=== PATIENT | female | born 1945 | race Caucasian/White ===

== ENCOUNTER 2018-03-02 00:56 | Observation (INO) | payer MEDICAID, OTHER ==
[2018-03-02] MEDS ORDERED: ONDANSETRON 4 MG/2 ML VIAL IVP ONE (01:09)
--- NOTE | 2018-03-02 01:10 | EDPHY ---
General Time Seen by Provider: 03/02/18 01:07 Narrative: 0220: I did go see and evaluate the patient. She is resting comfortably. She has no complaints at this time. She has a left lower abdominal wall hematoma. Additionally her CT scans have been reviewed of her head and abdomen and pelvis. CT scan of the head shows a hyperdense lesion in 1 focal area. Patient does report to me that she may have had a focal hyperdense lesion or bleed on her brain before. She states this comment on this before. She did hit her head when she had a mechanical trip and fall this evening. She is not on any anticoagulation. CT scan abdomen pelvis shows an abdominal wall hematoma. No solid organ injury. Patient is status post renal transplant she has left arm AV fistula. Plan will be for admission for mechanical trip and fall with a left abdominal wall hematoma, and questionable brain bleed. Trauma surgery Dr. Clemens has been consulted. Patient is pending blood work and troponin. She denies any syncope or chest pain or shortness of breath at this time. EKG interpretation by me on record in [employer] system. Impression time of EKG 2:27 a.m. This is sinus rhythm rate of [address] elevation no ST depression no significant T-wave abnormalities. There are Q-waves noted V1 V2. Additionally I did review her CBC it does show that she is anemic. There is no old CBCs to compare this to. Patient resides at [facility] she recently moved back from [place]. ED x-ray chest one view cardiomegaly present. No evidence of acute thoracic trauma. 0455: After further discussion with Dr. Clemens he requested patient gets admitted to the medicine service. As she has status post kidney transplant. Plan for patient Dr. Clemens at bedside at 4:55 a.m. Evaluating the patient. Neurosurgery is been consult. Will repeat her CT scan of her head to make sure this debility of the bleed. Long discussion with Dr. Clemens. He is assessed and evaluate the patient. He will admit the patient for trauma evaluation. He has seen and evaluated the patient Neurosurgery is following. Doctor Storey was initially did admit this patient however Trauma surgery will admit with hospitalist service consult for anemia. (Scot Clark) CHIEF COMPLAINT: Fall, abdominal pain HISTORY OF PRESENT ILLNESS: Patient presents by EMS and is seen at time of arrival. She comes from [facility] with reports of fall. She reports standing up from her bed and taking a few steps when she tripped and fell. She struck the left side of her abdomen on a office chair. She then fell back and struck her head on the back of the floor. She denies loss of consciousness. She complains of a very mild headache but no neck pain. She complains of moderate to severe left lower quadrant abdominal pain with there is a hematoma. Nausea but no vomiting. No upper abdominal pain. No chest pain or shortness of breath. No back or extremity pain. No numbness, tingling or weakness. She does not use any anticoagulants. She is a renal transplant patient and requesting IV contrast. No other associated complaints or modifying factors. REVIEW OF SYSTEMS: Ten systems reviewed and are negative unless otherwise noted in the HPI PCP: Still establishing SPECIALISTS: Located in [place] PAST MEDICAL HISTORY: Hypertension the with the chronic kidney disease status post renal failure, macular degeneration, arthritis, incontinence PAST SURGICAL HISTORY: Total knee arthroplasty SOCIAL HISTORY: Never smoker. Recently return to [place] 3 weeks ago. Resides in independent living at [facility]. Retired [employer] professor FAMILY HISTORY: Noncontributory EXAMINATION General Appearance: Alert, no distress Head: normocephalic, atraumatic. No Ramos sign. No raccoon eyes. Eyes: Pupils equal and round, no conjunctival pallor or injection ENT, Mouth: Mucous membranes mildly dry. Airway is widely patent. Neck: Normal inspection, supple, non-tender. No crepitus, step-off or deformity. Respiratory: Lungs are clear to auscultation. No wheezing rhonchi or crackles Cardiovascular: Regular rate and rhythm. No murmur Gastrointestinal: Obese abdomen is soft and nondistended. There is palpable left lower quadrant superficial hematoma with tenderness. No guarding. No rebound. Habitus difficult to evaluate for mass. Back: non-tender, no bony abnormalities Neurological: GCS 15. A&O, nonfocal, strength is symmetric in all 4 limbs. Skin: Warm and dry, multiple neuro fibroma as an skin tags. There is a left lower quadrant abdominal hematoma that is palpable without pulsation. Extremities: Nontender, symmetric pedal edema. Psychiatric: Mood and affect normal DIFFERENTIAL DIAGNOSES: Including but not limited to abdominal wall hematoma, rectus sheath hematoma, splenic injury, renal injury MDM: 1:05 a.m. Reported mechanical fall with left lower abdominal pain and hematoma that is palpable in visualized. She has no chest or back pain or injury. She does have a mild headache. Her vital signs within normal limits. She reports history of right-sided renal transplant and requests no IV contrast. I have ordered CT scans of the head cervical spine plain, as well as abdominal and pelvic scan with no contrast. She is in no acute distress. Laboratory studies will be obtained. 1:50 a.m. Notified by radiologist Dr. uQigley. CT scan of the head does reveal a small area of bleed in the right hemisphere as documented. There is dense fluid in left maxillary sinus of uncertain etiology as there is no apparent fracture. CT cervical spine reveals no acute findings but chronic changes are noted to out. The abdomen and pelvis is still pending. Dr. Clark has been made aware of this and Neurosurgery will be contacted 2:00 a.m. Case discussed with Dr. Belcher. We discussed the CT scan, history and exam findings, including normal neuro examination. She recommends admission to SDU with trauma consultation and/or admission. No further recommendations or medications. She is currently being evaluated by Dr. Clark. I have also ordered a chest x-ray and EKG 2:05 a.m. I discussed the case with the operating room circulating nurse with Dr. Clemens. They will review the case and return my call 2:07 p.m. Case discussed with radiologist Dr. Quigley. We discussed the CT scan abdomen pelvis findings. Acute finding is hematoma which is outside the peritoneum. There are chronic changes as documented otherwise. 2:20 a.m. At this time the patient has been admitted to Dr. Clemens, but he has not had the opportunity to evaluate her as he is currently scribed into a case in the operating room. Thus Dr. Clark will assume care of the patient while she remains in the ED. He has evaluated the patient she informed us that this area of hemorrhage has been previously noted on scan. We have no comparisons this facility as she is not presented to our hospital prior to today. She remains in stable condition within normal neuro examination. Chest x-ray is pending. Most laboratory studies are pending at this time. SUPERVISION: Patient was evaluated and examined in conjunction with my secondary supervising physician as documented. We have both examined the patient. . (Jeremy Anderson) - Objective Vital Signs: Initial Vital Signs Temperature (C) 97.9 F 03/02/18 01:05 Heart Rate 54 L 03/02/18 01:05 Respiratory Rate 16 03/02/18 01:05 Blood Pressure 134/72 H 03/02/18 01:05 O2 Sat (%) 96 03/02/18 01:05 O2 Delivery Mode Room Air Allergies/Adverse Reactions: metronidazole [From Flagyl] Allergy (Verified 03/02/18 08:49) sulfamethoxazole [From Bactrim] Allergy (Verified 03/02/18 08:49) trimethoprim [From Bactrim] Allergy (Verified 03/02/18 08:49) wheat Allergy (Verified 03/02/18 01:03) Home Medications: Medication Instructions Recorded Acetaminophen [Tylenol 325mg (*)] 650 mg PO Q4HRS PRN tab 03/02/18 Aspirin EC [Aspirin EC 81 mg (*)] 81 mg PO DAILY 03/02/18 Calcitriol [Calcitriol (*)] 0.25 mcg PO DAILY 03/02/18 Carvedilol [Coreg (*)] 3.125 mg PO BIDMEAL 03/02/18 FLUoxetine HCL [Fluoxetine HCl] 30 mg PO DAILY 03/02/18 Gabapentin [Neurontin 100 MG (*)] 200 mg PO 03/02/18 Herbals/Supplements -Info Only 1 ea PO DAILY 03/02/18 Tacrolimus 03/02/18 azaTHIOprine [Imuran 50 mg (*)] 50 mg PO DAILY 03/02/18 predniSONE 5 mg PO DAILY 03/02/18 traZODone [traZODone 150MG (*)] 150 mg PO 03/02/18 Laboratory Results: Laboratory Results 03/02/18 02:00 03/02/18 02:00 Medications Given: Discontinued Medications Acetaminophen (Tylenol) 650 mg PO Q4HRS PRN PRN Reason: Pain, Mild/Fever, Can Take PO Stop: 08/29/18 04:57 Last Admin: 03/02/18 06:27 Dose: 650 mg Sodium Chloride (Ns) 500 mls @ 0 mls/hr IV EDNOW ONE; Wide Open PRN Reason: Protocol Stop: 03/02/18 01:14 Last Admin: 03/02/18 01:42 Dose: 500 mls Sodium Chloride (Ns) 1,000 mls @ 0 mls/hr IV ONCE ONE PRN Reason: Wide Open Stop: 03/02/18 04:54 Last Admin: 03/02/18 05:04 Dose: 1,000 mls Morphine Sulfate (Morphine) 2 mg IVP EDNOW ONE Stop: 03/02/18 01:10 Last Admin: 03/02/18 01:40 Dose: 2 mg Ondansetron HCl (Zofran) 4 mg IVP EDNOW ONE Stop: 03/02/18 01:10 Last Admin: 03/02/18 01:40 Dose: 4 mg Oxycodone HCl (Oxycodone Ir) 5 - 10 mg PO Q4HRS PRN PRN Reason: Pain, Severe Able to Take PO Stop: 03/12/18 10:11 Last Admin: 03/02/18 10:22 Dose: 5 mg Departure - Departure Disposition: [facility] Inpatient Acute Clinical Impression: Dehydration Intracerebral hematoma Qualifiers: Intracerebral hemorrhage etiology: traumatic Encounter type: initial encounter Laterality: right Loss of consciousness presence/duration: without LOC Qualified Code(s): S06.340A - Traumatic hemorrhage of right cerebrum without loss of consciousness, initial encounter Fall Qualifiers: Encounter type: initial encounter Qualified Code(s): W19.XXXA - Unspecified fall, initial encounter Abdominal wall hematoma Qualifiers: Encounter type: initial encounter Qualified Code(s): S30.1XXA - Contusion of abdominal wall, initial encounter CKD (chronic kidney disease) Qualifiers: Chronic kidney disease stage: unspecified stage Qualified Code(s): N18.9 - Chronic kidney disease, unspecified Anemia Qualifiers: Anemia type: unspecified type Qualified Code(s): D64.9 - Anemia, unspecified Condition: Good
[2018-03-02] MEDS ORDERED: NS 500 ML IV ONE (01:13)
[2018-03-02 02:11] LABS: PLATELET COUNT 245 10^3/uL (150-400)
[2018-03-02 02:19] LABS: INR 1.15 (0.83-1.16); PROTIME(PATIENT) 14.9 SEC (12.0-15.0)
--- NOTE | 2018-03-02 02:28 | CPEKG ---
Heart Rate: 68 RR Interval: 882 P-R Interval: 188 QRSD Interval: 94 QT Interval: 448 QTC Interval: 477 P [place]: 47 QRS [place]: 17 T Wave [place]: 63 EKG Severity - NORMAL ECG - EKG Impression: SINUS RHYTHM Electronically Signed By: Scot Clark 02-Mar-2018 07:22:47
[2018-03-02] MEDS ORDERED: NS 1,000 ML IV ONE (04:53)
[2018-03-02] MEDS ORDERED: ACETAMINOPHEN 325 MG TAB PO PRN (04:58)
[2018-03-02] MEDS ORDERED: ONDANSETRON DISINTEGRATING 4 MG TAB PO PRN (04:58)
[2018-03-02] MEDS ORDERED: ONDANSETRON 4 MG/2 ML VIAL IVP PRN (04:58)
--- NOTE | 2018-03-02 05:30 | PDHOSCONS ---
History and Physical - Chief Complaint Fall - History of Present Illness 72 yo F w/ hx of CKD s/p renal transplant, anemia, and HTN presents after a fall. Patient tripped over a mat on the ground and fell onto a chair. She hit the left side of her abdomen and the back of her head. She denies any neurologic symptoms such as weakness, numbness, and visual deficits. She has bruising on the left side of her abdomen. Imaging in the ED revealed L-sided abdominal wall hematoma and possible, small ICH. Patient is being admitted for observation of this. In terms of CKD, patient states her baseline creatinine is near 2. She has been followed for anemia for some time and says her usual hemoglobin values range from 8-9. She receives monthly B12 injections for this. History Information - Allergies/Home Medication List Allergies/Adverse Reactions: wheat Allergy (Verified 03/02/18 01:03) Home Medications: Aspirin 81mg (*) 03/02/18 [Last Taken Unknown] Azothiaprine 03/02/18 [Last Taken Unknown] Calcitriol 03/02/18 [Last Taken Unknown] Carvedilol 03/02/18 [Last Taken Unknown] Gabapentin 03/02/18 [Last Taken Unknown] Prednisone 03/02/18 [Last Taken Unknown] Prozac 10 MG (*) 03/02/18 [Last Taken Unknown] Tacrolimus 03/02/18 [Last Taken Unknown] I have personally reviewed and updated: family history, medical history - Past Medical History hypertension Additional medical history: CKD s/p transplant. Depression - Surgical History Additional surgical history: Renal transplant - Family History Additional family history: Denies family hx of kidney disease - Social History Smoking Status: Never smoked Review of Systems Review of Systems: ROS: 10pt was reviewed & negative except for what was stated in HPI & below Physical Exam Physical Exam: Temp Pulse Resp BP Pulse Ox 36.6 C 68 16 136/67 H 100 03/02/18 01:05 03/02/18 04:00 03/02/18 04:00 03/02/18 04:00 03/02/18 04:00 O2 (L/minute) 2 Constitutional: no apparent distress, not in pain Eyes: PERRL, EOMI Ears, Nose, Mouth, Throat: moist mucous membranes, no oral mucosal ulcers Cardiovascular: regular rate and rhythym, no murmur, rub, or gallop Respiratory: no respiratory distress, clear to auscultation Gastrointestinal: normoactive bowel sounds, soft, non-tender abdomen, other (L abdominal wall echymosis) Skin: warm, normal color, other (L abdominal wall echymosis) Musculoskeletal: full muscle strength, no muscle tenderness Neurologic: AAOx3, CN II-XII Intact Psychiatric: interacting appropriately, not anxious Lab Data & Imaging Review 03/02/18 02:00 03/02/18 02:00 WBC 5.03 10^3/uL (3.80-9.50) 03/02/18 02:00 RBC 2.88 10^6/uL (4.18-5.33) L 03/02/18 02:00 Hgb 9.0 g/dL (12.6-16.3) L 03/02/18 02:00 Hct 29.3 % (38.0-47.0) L 03/02/18 02:00 MCV 101.7 fL (81.5-99.8) H 03/02/18 02:00 MCH 31.3 pg (27.9-34.1) 03/02/18 02:00 MCHC 30.7 g/dL (32.4-36.7) L 03/02/18 02:00 RDW 15.1 % (11.5-15.2) 03/02/18 02:00 Plt Count 245 10^3/uL (150-400) 03/02/18 02:00 MPV 10.2 fL (8.7-11.7) 03/02/18 02:00 Neut % (Auto) Not Reported 03/02/18 02:00 Lymph % (Auto) Not Reported 03/02/18 02:00 [place] % (Auto) Not Reported 03/02/18 02:00 Eos % (Auto) Not Reported 03/02/18 02:00 Baso % (Auto) Not Reported 03/02/18 02:00 Nucleat RBC Rel Count Not Reported 03/02/18 02:00 Absolute Neuts (auto) Not Reported 03/02/18 02:00 Absolute Lymphs (auto) Not Reported 03/02/18 02:00 Absolute Monos (auto) Not Reported 03/02/18 02:00 Absolute Eos (auto) Not Reported 03/02/18 02:00 Absolute Basos (auto) Not Reported 03/02/18 02:00 Absolute Nucleated RBC Not Reported 03/02/18 02:00 Immature Gran % Not Reported 03/02/18 02:00 Seg Neutrophils % 81.0 % 03/02/18 02:00 Band Neutrophils % 0 % 03/02/18 02:00 Lymphocytes % 9.0 % 03/02/18 02:00 Monocytes % 8.0 % 03/02/18 02:00 Eosinophils % 0 % 03/02/18 02:00 Basophils % 2.0 % 03/02/18 02:00 Metamyelocytes % 0 % 03/02/18 02:00 Myelocytes % 0 % 03/02/18 02:00 Promyelocytes % 0 % 03/02/18 02:00 Blast Cells % 0 % 03/02/18 02:00 Immature Gran # Not Reported 03/02/18 02:00 Absolute Seg Neuts 4.07 10^/uL (1.70-6.50) 03/02/18 02:00 Absolute Band Neuts 0.00 10^3/uL (0.00-0.70) 03/02/18 02:00 Absolute Lymphocytes 0.45 10^3/uL (1.00-3.00) L 03/02/18 02:00 Absolute Monocytes 0.40 10^3/uL (0.30-0.80) 03/02/18 02:00 Absolute Eosinophils 0.00 10^3/uL (0.03-0.40) L 03/02/18 02:00 Absolute Basophils 0.10 10^3/uL (0.02-0.10) 03/02/18 02:00 Absolute Metamyelocyte 0.00 10^3/mL (0.00-0.00) 03/02/18 02:00 Absolute Myelocytes 0.00 10^3/mL (0.00-0.00) 03/02/18 02:00 Absolute Promyelocytes 0.00 10^3/uL (0.00-0.00) 03/02/18 02:00 Absolute Plasma Cells 0.00 10^3/uL (0.00-0.00) 03/02/18 02:00 Absolute Blast Cells 0.00 10^3/uL (0.00-0.00) 03/02/18 02:00 Plasma Cells % 0 % 03/02/18 02:00 Platelet Estimate ADEQUATE (ADEQ) 03/02/18 02:00 Oval Macrocytes 1+ H 03/02/18 02:00 PT 14.9 SEC (12.0-15.0) 03/02/18 02:00 INR 1.15 (0.83-1.16) 03/02/18 02:00 APTT 32.8 SEC (23.0-38.0) 03/02/18 02:00 Sodium 145 mEq/L (135-145) 03/02/18 02:00 Potassium 4.1 mEq/L (3.3-5.0) 03/02/18 02:00 Chloride 111 mEq/L (97-110) H 03/02/18 02:00 Carbon Dioxide 20 mEq/l (22-31) L 03/02/18 02:00 Anion Gap 14 mEq/L (8-16) 03/02/18 02:00 BUN 42 mg/dL (7-23) H 03/02/18 02:00 Creatinine 1.5 mg/dL (0.6-1.0) H 03/02/18 02:00 Estimated GFR 34 03/02/18 02:00 Glucose 76 mg/dL (70-100) 03/02/18 02:00 Calcium 8.5 mg/dL (8.5-10.4) 03/02/18 02:00 Total Bilirubin 0.5 mg/dL (0.1-1.4) 03/02/18 02:00 Conjugated Bilirubin 0.5 mg/dL (0.0-0.5) 03/02/18 02:00 Unconjugated Bilirubin 0.0 mg/dL (0.0-1.1) 03/02/18 02:00 AST 15 IU/L (14-46) 03/02/18 02:00 ALT 39 IU/L (9-52) 03/02/18 02:00 Alkaline Phosphatase 101 IU/L (38-126) 03/02/18 02:00 Troponin I < 0.012 ng/mL (0.000-0.034) 03/02/18 02:00 Total Protein 6.0 g/dL (6.3-8.2) L 03/02/18 02:00 Albumin 3.1 g/dL (3.5-5.0) L 03/02/18 02:00 Lipase 109 IU/L (23-300) 03/02/18 02:00 Imaging Review: CT Abdomen prelim: Findings: Minimal basilar atelectasis and cardiac enlargement . LT flank hematoma. No acute intraabdominal abnl. Renal transplant nl. Splenic enlargement with large parenchymal calc The visualized retroperitoneal structures are normal. There is no evidence of retroperitoneal or intra-abdominal bleed The bowel loops are unremarkable in appearance. No free air is identified. Visualized osseous structures are unremarkable. CTH Prelim: Findings: 9 mm hemorrhagic focus RT centrum semiovale w/o mass effect ? blood LT maxillary sinus No fx CT C-spine No fx. Degenerative changes ? spasm w/ straightening of nl curvature Called to ER @ 0155 hrs Visualized and Interpreted Chest x-ray results: Yes Chest X-Ray results: no infiltrate Visualized and Interpreted EKG results: Yes EKG Interpretation: Positive for: normal sinsus rhythm Assessment & Plan Assessment: 72 yo F w/ CKD s/p renal transplant, anemia, and depression presents after a fall with possible ICH. Plan: 1. ICH - 9 mm hemorrhagic focus RT centrum semiovale w/o mass effect. Patient denies neurologic symptoms. - Management per neurosurgery - Repeat CTH pending to monitor progression 2. Abdominal wall hematoma - Management per general surgery 3. CKD - s/p renal transplant. Patient states her baseline serum creatinine level is around 2; found to be 1.5 on admission. She is on prednisone, azathioprine, and cyclosporine for immunosuppression. - Continue home IS meds, needs med reconciliation - Renally dose meds, avoid nephrotoxins - Monitor daily BMP 4. Anemia - Patient states her usual Hgb is in 8-9 range. This is currently stable. She receives B12 shots for this and CKD is likely also contributing. - Will check ferritin - Monitor daily CBC 5. HTN - Continue home meds, need reconciliation Thank you for this consult, the hospitalist service will follow along with you. Please do not hesitate to call with any questions.
--- NOTE | 2018-03-02 06:31 | GHP ---
[f rep st] HISTORY AND PHYSICAL DATE OF ADMISSION: 03/02/2018 ADMISSION DIAGNOSIS: Fall from standing. HISTORY: The patient is a 72-year-old female who was awoken by a mistakenly set alarm clock. As she was walking to the desk, she tripped over the plastic sheet that sits below the office chair and fell onto the office chair, impacting her left lower quadrant, she then rolled off and hit her posterior head. There was no loss of consciousness. She used her cane to get to a sitting position, and then used the cane to pull the phone over to her. She called the EMS. This happened at approximately midnight. Note is made that her last meal was at 6:00 p.m. and consisted of chicken, pasta and salad. She was brought to the emergency department, where she was evaluated for her hematoma. A CT of her head and neck was also performed. The abdominal CT shows only subcutaneous hematoma. The head CT shows a right parietal intraparenchymal bleed, which appears stable on interval CT scan. She is a transplant patient. She has anemia. She will be admitted for observation for both the neurosurgical issue and further evaluation of her anemia by the hospitalist service. SOCIAL HISTORY: She smoked from ages 14 to 39 at 1-1/2 packs per day. She does not drink. ALLERGIES: She is allergic to Flagyl, as manifested by a rash. She states she is allergic to Bactrim, but is unclear as how that is manifested. CURRENT MEDICATIONS: Include 81 mg aspirin. She takes azathioprine, calcitriol , carvedilol, gabapentin, prednisone, Prozac, and tacrolimus. PAST SURGICAL HISTORY: Her surgeries have included an appendectomy. She has had a D and C for miscarriage. She has had left hand surgery to repair a cat injury. She has had multiple skin cancers removed from her face. She has had bilateral knee replacements. She had a SEBASTI[place]N-BSO for fibroids. She has had a renal transplant. She also had in the past an arteriovenous fistula placed in the left upper arm. She had a gastric bypass, with an additional cholecystectomy. She initially lost 75 pounds after the gastric bypass. She then gained that weight again. She then lost weight when she discovered she had celiac issues and switched to a gluten free diet. At her heaviest, she was 350 pounds, switched to the gluten free diet which coincided with the loss of 150 pounds, to about approximately 200 now. No history of rheumatic fever or tuberculosis. She has had hepatitis A, and she has had blood transfusions in the past. REVIEW OF SYSTEMS: She has a history of anemia. 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 She has been hypertensive for 20 years. She has had glaucoma for 1 year. She has had macular degeneration for 1 year. She has 2 dental crowns. There is a question of a heart murmur by history. Last mammogram was last fall. She has had occasional stress incontinence. She cannot climb a flight of stairs, and she becomes winded easily now that she is at altitude ( she recently moved from [place]). She does not use supplemental oxygen. She does have chronic earaches, which lead to daily headaches. She also has tinnitus. She does not fall on a regular basis. Last time she fell was more than a year ago. This occurred when she used to drink in the past. PHYSICAL EXAMINATION: GENERAL: She is seen lying flat on the gurney. Her skull is normocephalic. She is tender over the spinous process of approximately C5. CT scan is negative. MRI will be planned. NECK: There is no cervical, supraclavicular, axillary or inguinal lymphadenopathy. Thyroid is not enlarged. I did not detect any carotid bruits. BACK: Unremarkable. LUNGS : Breath sounds are somewhat compromised due to her habitus and difficulty taking a deep breath when she is sitting. What I do auscultate is normal. CARDIAC: Shows S1, S2 to be normal. I do not appreciate a murmur at this time. ABDOMEN: Her abdomen is generous, soft. She has a left lower lateral abdominal wall contusion best seen on CT. EXTREMITIES: Left upper has a prominent AV fistula. Her lower extremities are unremarkable. NEUROLOGIC: She is alert, oriented x3. Chadwick Coma Scale is 15. Cranial nerves are intact. There are no focal lateralizing neurologic findings. Specifically, there is no weakness identified. There is no motor dysfunction identified. IMPRESSION: Patient with abdominal wall hematoma and unsuspected intracranial hematoma. She has had neck pain. Negative CT. An MRI will be obtained. Neurosurgery and Hospitalist consults have been requested. /[id number]/MODL MTDD
--- NOTE | 2018-03-02 07:17 | GCON ---
[f rep st] CONSULTATION NEUROSURGICAL CONSULTATION DATE OF CONSULTATION: 03/02/2018 CHIEF COMPLAINT: Fall. HISTORY OF PRESENT ILLNESS: This is a 72-year-old female with a history of a renal transplant, anemi a, and hypertension who fell. She states that she tripped over a mat on the ground. She fell onto a chair striking the left side of her abdomen and the back of her head. She did not lose consciousnes s. She does have some headache. She denies any nausea, vomiting, numbness, tingling, or weakness. She states that she does not fall often. She does have macular degeneration and thinks that this may be why she tripped. She is complaining of left-sided abdominal pain where she has a hematoma. She denies any other significant complaints at this point in time. PAST MEDICAL HISTORY: Includes hypertension, chronic renal failure, anemia, and hypertension. PAST SURGICAL HISTORY: Includes hysterectomy, bilateral knee repair, appendectomy, renal transplant, surgery on her hand, a gastric bypass. SOCIAL HISTORY: She does not drink. She does not smoke. FAMILY HISTORY: She has no history of renal disease. She has no history that would be contributory to this complaint. ALLERGIES: Bactrim and sulfa. HOME MEDICATIONS: Include: 1. Aspirin. 2. Azathioprine. 3. Calcitriol. 4. Carvedilol. 5. Neurontin. 6. Prednisone. 7. Prozac. 8. Tacrolimus. REVIEW OF SYSTEMS: Complete 10-point review of systems was performed by myself, was negative except as stated above. PHYSICAL EXAM: Blood pressure is 125/63, heart rate is 65, respiratory rate is 16, satting 100% on r oom air, and temp is 36.6 degrees Celsius. White blood cell count is 5.03, hemoglobin is 9, hematocr it is 29.3, platelets are 245. PT 14.9, INR 1.15, PTT 32.8. Sodium 145, potassium 4.1, chloride 111 , CO2 20, BUN 42, creatinine 1.5, glucose 76. CT of the cervical spine shows some degenerative disea se, some straightening of the normal lordotic curvature. No obvious fracture or malalignment, althou gh the official read is not present. She has a CT of the head, reveals a small intraparenchymal hemo rrhage in the right posterior centrum semiovale region that appears to be stable on a repeat head CT this morning. She is alert and oriented x3. Pupils are equal, round, reactive to light and accommod ation. External ocular muscles are intact. There is no facial asymmetry or tongue deviation. Stren gth is 5/5 to bilateral deltoids, biceps, triceps, wrist flexors, wrist extensors, hand intrinsics, i liopsoas, quadriceps, hamstrings, dorsiflexors, plantar flexors, EHLs. DTRs are +2/4 biceps, brachio radialis, patellar, and Achilles. She has no Colette's, she has no clonus, and she has no drift. S he does have some tenderness right over the spinous process at approximately T1-T2. She has full ran ge of motion with no tenderness. IMPRESSION AND PLAN: This is a 72-year-old female with multiple medical problems who tripped and fel l, likely secondary to some macular degeneration. She did not lose consciousness. She has a small i ntracerebral hematoma, which has not expanded on repeat head CT. She is neurologically intact. At t his point in time, I would recommend PT, OT, and speech and evaluation for discharge later today or t omorrow pending medical discharge. I see no further reason for any further cervical or brain imaging in this patient. I did discuss with her the brain healing guidelines, and should she have postconcu ssive syndrome when she gets home, she might seek from her PCP a consult with Postconcussive Rehab. I would not recommend any further imaging or neurosurgical followup for these complaints. She was pl eased with this plan. /[id number]/MODL
[2018-03-02] MEDS ORDERED: oxyCODONE IR 5 MG TAB PO PRN (10:12)
[2018-03-02] MEDS ORDERED: HYDROmorphONE/DILAUDID 1 MG/ML INJ IVP PRN (10:12)
--- NOTE | 2018-03-02 10:12 | HOSPPROG ---
Hospitalist Progress Note Assessment/Plan: 72 yo F with PMH of ESRD s/p renal tx as well as ckd and anemia presenting s/p fall with ICH # ICH: s/p fall and stable on personal review of repeat head CT. No neurological sxs. NSG cleared. Fall sounds mechanical in nature and complicated by macular degeneration # CKD: with hx of ESRD and s/p renal tx, creatinine currently at or better than usual baseline. Continue usual care and usual immune suppression meds. # chronic anemia: 2/2 anemia of ckd and with hx of prior GI bleed, this appears to be near her usual baseline, nothing to suggest active bleeding # htn: BP has been relatively normal overnight without BP meds, would resume her home meds of low dose carvedilol and have her f/u with PCP # dispo: clear to dc home when cleared by general surgery Subjective: no significant overnight events, patient feeling well and hoping to go home Objective: Vital Signs Temp Pulse Resp BP Pulse Ox 36.7 C 56 L 12 106/51 L 94 03/02/18 07:21 03/02/18 09:07 03/02/18 09:07 03/02/18 09:07 03/02/18 09:07 03/01/18 03/02/18 03/03/18 05:59 05:59 05:59 Intake Total 1500 Balance 1500 PT 14.9 SEC (12.0-15.0) 03/02/18 02:00 INR 1.15 (0.83-1.16) 03/02/18 02:00 awake alert anicteric op clear rrr no mrg cta b soft nt nd no cce ICD10 Worksheet Patient Problems: Problems Problem Status Onset Abdominal wall hematoma Acute Anemia Acute CKD (chronic kidney disease) Acute Dehydration Acute Fall Acute Intracerebral hematoma Acute
--- NOTE | 2018-03-02 13:33 | GDS ---
[f rep st] DISCHARGE SUMMARY ADMITTING DIAGNOSES: 1. Trip and fall with subcutaneous contusion, left lower quadrant. 2. Intracranial hemorrhage (small, stable). 3. Anemia (chronic). 4. Transplant patient. CONDITION ON DISCHARGE: Good. DISPOSITION: Home. DIET: Unrestricted, although gluten-free. There are no restrictions on the texture. HOME MEDICATIONS: Include Tylenol 650 mg every 4 hours as needed for pain. She will continue her home medications, which include trazodone 150 mg p.o. q.h.s., herbal supplements, fluoxetine hydrochloride 30 mg daily, prednisone 5 mg daily, gabapentin 200 mg p.o. q.h.s., Coreg 3.125 mg b.i.d. with meals, calcitriol 0.25 mcg daily, Imuran 50 mg daily, aspirin 81 mg daily, and tacrolimus. ACTIVITY: She is to restrict her activity to minimize any activity that could lead to falls or head injury. Since she recently moved to the area, she is to establish a primary care physician. She will follow up with Dr. Katlyn Belcher of Neurosurgery as needed for neurologic changes. She will follow up with Dr. Raghavendra Kaufman as needed in 10 days from a general surgery standpoint. HOSPITAL COURSE: She was admitted this morning. A followup CT was done, and that showed no change of the intracranial bleed per Dr. Belcher. She had a tender posterior neck, but a negative CT of her neck. An MRI does show foraminal narrowing, mainly at the C5-6 level. There is canal narrowing at C5- 6 and C6-7 but no acute findings. Subcutaneous hematoma, stable. As mentioned, her old records were sought and was found that the hematocrit is stable for her. /[id number]/MODL MTDD
[2018-03-02 14:04] VITALS: BP 120/49
== END 2018-03-02 13:50 | disposition home or self-care (01) ==
LOC: INTOOBSV 02:18 → F2N 05:45
PROVIDERS: ADMIT Student in an Organized Health Care Education/Training Program; ATTEND Student in an Organized Health Care Education/Training Program
DX: S06.360A Traumatic hemorrhage of cerebrum, unspecified, without loss of consciousness, initial encounter (principal); S30.1XXA Contusion of abdominal wall, initial encounter; N18.9 Chronic kidney disease, unspecified; D64.9 Anemia, unspecified; Z94.0 Kidney transplant status; W22.8XXA Striking against or struck by other objects, initial encounter; Y92.003 Bedroom of unspecified non-institutional (private) residence as the place of occurrence of the external cause
CPT/HCPCS: 70450; 71045; 72125; 72141; 74176; 92523; 93005; 97161; 97165; 97535; G0378; G8978; G8979; G8980; G8987; G8988; G8989; G9165; G9166; G9167; J2270; J2405; 96374

== ENCOUNTER 2018-06-21 20:28 | Inpatient (IN) | payer MEDICAID, OTHER ==
--- NOTE | 2018-06-21 20:34 | EDPHY ---
HPI/HX/ROS/PE/MDM Narrative: CHIEF COMPLAINT: Right leg pain, fall, facial injury HPI: The patient is a 72 y/o female with a history of DVT, end-stage renal disease, hypertension who arrives via EMS from [facility] complaining of facial contusion secondary to a fall this evening and a red and painful right leg for the past few days. She was admitted last month for E.coli bacteremia with multiple antibiotic therapy. Today she stood up from her chair and her leg "gave out" causing her to fall forward and strike her forehead. She denies loss of consciousness, weakness, paresthesias, neck or back pain, hip pain, abdominal pain. She suffered a skin tear on her right arm. She is not currently on anticoagulants. She is most concerned about her right leg, which has been hot , swollen, and red for the last 3 days. REVIEW OF SYSTEMS: A comprehensive 10 system review of systems is otherwise negative aside from elements mentioned in the history of present illness. PMH: Hypertension, arthritis, DVT, sleep apnea, skin cancer, end-stage renal disease, chronic diarrhea, obesity, obstructive sleep apnea, UTI, secondary hyperparathyroidism, depression, glaucoma SOCIAL HISTORY: Lives at [facility], independent living Prior medical records reviewed including admission 05/12/18 for E. coli bacteremia. PHYSICAL EXAM: General:Patient is alert, in no acute distress. Head:Tenderness and contusion noted to forehead. Otherwise atraumatic. Alopecia noted. ENT:Eyes are normal to inspection. ENT inspection normal. Neck: Normal inspection. Full range of motion. Respiratory:No respiratory distress. Breath sounds normal bilaterally. Cardiovascular: Regular rate and rhythm. Strong peripheral pulses. Normal cap refill. Abdomen:The abdomen is nontender to palpation. There are no peritoneal signs. There are normal bowel sounds. Back: Normal to inspection. No tenderness to palpation. Extremities: Erythema is present on the dorsal left foot near the fourth toe. Right lower extremity is swollen and quite erythematous from approximately the mid lower leg distal. This area is tender- no discharge. A large skin tear is present over the right forearm. No bony tenderness. Neuro: Oriented x3. Normal motor function. Normal sensory function. ED Course: 72 y/o female presents with forehead contusion and right arm skin tear secondary to a fall from standing tonight and also with a hot, red, swollen, and painful right leg for the last 3 days. Leg is concerning for cellulitis. Plan for IV, labs, UA, head CT, right leg US. US is negative for DVT. Head CT is negative for acute findings. I discussed case with Dr. Aly from trauma surgery. He feels that a formal trauma consult is not indicated as patient was not an activation and has no admittable traumatic conditions. 1gm IV Vancomycin ordered for cellulitis. - Data Points Imaging Results: Imaging Impressions Head CT 06/21/18 20:33 Impression: 1. Moderate atrophy. 2. No acute hemorrhage, hydrocephalus, or mass effect. 3. Cerebrovascular atherosclerosis. 4. No definite acute infarct. 5. Moderate microvascular ischemic gliosis. 6. Stable right parietal benign calcification, unchanged since February 2018. 7. No epidural or subdural hematoma. 8. No skull fracture. Findings and recommendations discussed with Emergency Department physician, Adam Watkins M.D., at 2125 hours, on June 21, 2018. Final report concurs with initial preliminary interpretation. Extremity Venous Study 06/21/18 20:49 Impression: No deep venous thrombosis right leg. Findings and recommendations discussed with Emergency Department physician, Adam Watkins MD at 22:03 hour, 06/21/2018. Final report concurs with initial preliminary interpretation. Imaging: Discussed imaging studies w/ freight caller Radiologist, I viewed and interpreted images myself Laboratory Results: Laboratory Results 06/21/18 20:55 06/21/18 20:55 06/21/18 06/21/18 06/21/18 22:00 20:55 20:55 WBC 7.78 10^3/uL 10^3/uL (3.80-9.50) RBC 3.52 10^6/uL L 10^6/uL (4.18-5.33) Hgb 11.4 g/dL L g/dL (12.6-16.3) Hct 35.9 % L % (38.0-47.0) MCV 102.0 fL H fL (81.5-99.8) MCH 32.4 pg pg (27.9-34.1) MCHC 31.8 g/dL L g/dL (32.4-36.7) RDW 13.6 % % (11.5-15.2) Plt Count 150 10^3/uL 10^3/uL (150-400) MPV 9.4 fL fL (8.7-11.7) Neut % (Auto) 85.2 % H % (39.3-74.2) Lymph % (Auto) 6.3 % L % (15.0-45.0) [place] % (Auto) 7.2 % % (4.5-13.0) Eos % (Auto) 0.8 % % (0.6-7.6) Baso % (Auto) 0.1 % L % (0.3-1.7) Nucleat RBC Rel Count 0.0 % % (0.0-0.2) Absolute Neuts (auto) 6.63 10^3/uL H 10^3/uL (1.70-6.50) Absolute Lymphs (auto) 0.49 10^3/uL L 10^3/uL (1.00-3.00) Absolute Monos (auto) 0.56 10^3/uL 10^3/uL (0.30-0.80) Absolute Eos (auto) 0.06 10^3/uL 10^3/uL (0.03-0.40) Absolute Basos (auto) 0.01 10^3/uL L 10^3/uL (0.02-0.10) Absolute Nucleated RBC 0.00 10^3/uL 10^3/uL (0-0.01) Immature Gran % 0.4 % % (0.0-1.1) Immature Gran # 0.03 10^3/uL 10^3/uL (0.00-0.10) RBC/WBC/PLT Morphology TNP Platelet Estimate TNP Sodium 139 mEq/L mEq/L (135-145) Potassium 3.9 mEq/L mEq/L (3.3-5.0) Chloride 110 mEq/L mEq/L (97-110) Carbon Dioxide 19 mEq/l L mEq/l (22-31) Anion Gap 10 mEq/L mEq/L (8-16) BUN 64 mg/dL H mg/dL (7-23) Creatinine 1.8 mg/dL H mg/dL (0.6-1.0) Estimated GFR 28 Glucose 132 mg/dL H mg/dL (70-100) Calcium 8.7 mg/dL mg/dL (8.5-10.4) Urine Color YELLOW Urine Appearance CLEAR Urine pH 5.0 (5.0-7.5) Ur Specific [place] 1.009 (1.002-1.030) Urine Protein NEGATIVE (NEGATIVE) Urine Ketones NEGATIVE (NEGATIVE) Urine Blood NEGATIVE (NEGATIVE) Urine Nitrate NEGATIVE (NEGATIVE) Urine Bilirubin NEGATIVE (NEGATIVE) Urine Urobilinogen NEGATIVE EU EU (0.2-1.0) Ur Leukocyte Esterase NEGATIVE (NEGATIVE) Urine Glucose NEGATIVE (NEGATIVE) Medications Given: Discontinued Medications Morphine Sulfate (Morphine) 2 mg IVP EDNOW ONE Stop: 06/21/18 21:15 Last Admin: 06/21/18 21:25 Dose: 2 mg General Time Seen by Provider: 06/21/18 20:30 Initial Vital Signs: Initial Vital Signs Temperature (C) 36.9 C 06/21/18 20:35 Heart Rate 70 06/21/18 20:35 Respiratory Rate 16 06/21/18 20:35 Blood Pressure 141/67 H 06/21/18 20:35 O2 Sat (%) 94 06/21/18 20:35 O2 Delivery Mode Room Air Allergies/Adverse Reactions: metronidazole [From Flagyl] Allergy (Verified 05/11/18 21:56) Rash sulfamethoxazole [From Bactrim] Allergy (Verified 05/11/18 21:56) Rash trimethoprim [From Bactrim] Allergy (Verified 05/11/18 21:56) Rash wheat Allergy (Verified 03/02/18 01:03) Home Medications: Medication Instructions Recorded Aspirin EC [Aspirin EC 81 mg (*)] 81 mg PO DAILY 03/02/18 Calcitriol [Calcitriol (*)] 0.25 mcg PO DAILY 03/02/18 azaTHIOprine [Imuran 50 mg (*)] 50 mg PO DAILY 03/02/18 predniSONE 5 mg PO DAILY 03/02/18 traZODone [traZODone 150MG (*)] 150 mg PO HS 03/02/18 Bumetanide [Bumex (*)] 1 mg PO BID 05/11/18 C/E/Zn/Cu/OM3/DHA/EPA/LUT/ZEAX 1 each PO DAILY 05/11/18 [Preservision Areds 2 Softgel] Carvedilol [Coreg (*)] 6.25 mg PO BIDMEAL 05/11/18 Cholecalciferol (Vitamin D3) 2,000 unit PO DAILY 05/11/18 [Vitamin D3] Sertraline HCl [Zoloft 25mg (*)] 25 mg PO DAILY 05/11/18 Tacrolimus [Prograf] 3 mg PO DAILY 05/11/18 Tacrolimus [Prograf] 3 mg PO HS 05/11/18 Dorzolamide/Timolol [Cosopt (*)] 1 drops EACHEYE BID 05/12/18 Polyvinyl Alcohol/Povidone/Pf 1 each EACHEYE DAILY@1200 05/12/18 [Refresh Classic Eye Drops] cycloSPORINE 0.05% [Restasis Opht 1 drop EACHEYE BID 05/12/18 Drops(*)] Acetaminophen [Tylenol 325mg (*)] 650 mg PO Q4HRS PRN tab 05/15/18 Vancomycin [Vancomycin (*)] 125 mg PO Q12 #30 cap 05/15/18 cefTRIAXone 1 GM/DEXTROSE 50 ml IV DAILY bag 05/15/18 [Rocephin 1 gm (Premix)] Departure - Departure Disposition: [facility] Inpatient Acute Clinical Impression: Cellulitis of right leg, Skin tear of right upper extremity Minor head injury Qualifiers: Encounter type: initial encounter Qualified Code(s): S09.90XA - Unspecified injury of head, initial encounter Condition: Fair Referrals: Patient,NotPresent [Unknown] - As per Instructions Report Scribed for: Adam Watkins Report Scribed by: Kimberley Mera Date of Report: 06/21/18 Time of Report: 20:57 Physician Review and Approval Statement: Portions of this note were transcribed by an ED scribe. I personally performed the history, physical exam, and medical decision making; and confirm the accuracy of the information in the transcribed note.
[2018-06-21 21:02] LABS: PLATELET COUNT 150 10^3/uL (150-400)
[2018-06-21] MEDS ORDERED: VANCOMYCIN HCL/NORMAL SALINE 250 ML IV ONE (22:09)
[2018-06-21] MEDS ORDERED: VANCOMYCIN 1 GM/NS 250 ML BAG IV ONE (22:24)
[2018-06-21] MEDS ORDERED: HYDROmorphone HCL 0.5 MG/0.5 ML SYR IVP PRN (22:29)
[2018-06-21] MEDS ORDERED: ONDANSETRON 4 MG/2 ML VIAL IVP PRN (22:29)
[2018-06-21] MEDS ORDERED: NS 1,000 ML IV SCH (22:30)
--- NOTE | 2018-06-22 00:11 | PDGENHP ---
History and Physical - Chief Complaint Generalized weakness, right leg pain and swelling - History of Present Illness Source-Patient provides history and appears reliable. EMR was reviewed including hospitalization from 05/27/2018 and case discussed with ED provider. HPI-this is a very pleasant 72-year-old female with past medical history significant for ESRD status post transplant on chronic immunosuppressive therapy with baseline creatinine approximately 1.2, depression, recurrent UTI with a recent hospitalization and 05/27/2018 for E coli bacteremia, HTN, history DVT remotely a not on anticoagulation, restless leg syndrome, insomnia, JOSE on CPAP, history of chronic diarrhea none infectious, obesity with BMI 31.9 who presents emergency department this evening from her independent living apartment following a mechanical fall. Patient reports that over the last 3 days she has noticed that she has had intermittent headaches generalized weakness and myalgias. She has also noted some increased right leg pain but did not appreciate any swelling or redness until today but admits that she has not looked down at her legs very closely over the last several days. She denies any numbness tingling. She denies any subjective fevers or chills. This evening patient was attempting to get off of her low level sofa and was reaching for cane at the same time she was trying to lift off and stand however her legs gave out as she has noted increasing generalized weakness and she fell forward striking her face without any LOC. Patient denies any preceding lightheadedness, syncope, palpitations or chest pain. Patient did state that after her fall she had a little bit of shortness of breath along with feeling stand but this has since resolved. Patient reports she feels a little flustered with herself that she did not recognize her symptoms a few days ago to seek attention. History Information - Allergies/Home Medication List Allergies/Adverse Reactions: metronidazole [From Flagyl] Allergy (Verified 05/11/18 21:56) Rash sulfamethoxazole [From Bactrim] Allergy (Verified 05/11/18 21:56) Rash trimethoprim [From Bactrim] Allergy (Verified 05/11/18 21:56) Rash wheat Allergy (Verified 03/02/18 01:03) Home Medications: Aspirin EC [Aspirin EC 81 mg (*)] 81 mg PO DAILY 03/02/18 [Last Taken 05/11/18 AM] Calcitriol [Calcitriol (*)] 0.25 mcg PO DAILY 03/02/18 [Last Taken 05/11/18 AM] azaTHIOprine [Imuran 50 mg (*)] 50 mg PO DAILY 03/02/18 [Last Taken 05/11/18 AM] predniSONE 5 mg PO DAILY 03/02/18 [Last Taken 05/11/18 AM] traZODone [traZODone 150MG (*)] 150 mg PO HS 03/02/18 [Last Taken 05/10/18 HS] Bumetanide [Bumex (*)] 1 mg PO BID 05/11/18 [Last Taken 05/11/18 AM] C/E/Zn/Cu/OM3/DHA/EPA/LUT/ZEAX [Preservision Areds 2 Softgel] 1 each PO DAILY [Last Taken 05/11/18 AM] Carvedilol [Coreg (*)] 6.25 mg PO BIDMEAL 05/11/18 [Last Taken 05/11/18 AM] Cholecalciferol (Vitamin D3) [Vitamin D3] 2,000 unit PO DAILY 05/11/18 [Last Taken 05/11/18 AM] Sertraline HCl [Zoloft 25mg (*)] 25 mg PO DAILY 05/11/18 [Last Taken 05/11/18 AM ] Tacrolimus [Prograf] 3 mg PO DAILY 05/11/18 [Last Taken 05/11/18 AM] Tacrolimus [Prograf] 3 mg PO HS 05/11/18 [Last Taken 05/10/18 HS] Dorzolamide/Timolol [Cosopt (*)] 1 drops EACHEYE BID 05/12/18 [Last Taken Unknown] Polyvinyl Alcohol/Povidone/Pf [Refresh Classic Eye Drops] 1 each EACHEYE DAILY@ 1200 05/12/18 [Last Taken Unknown] cycloSPORINE 0.05% [Restasis Opht Drops(*)] 1 drop EACHEYE BID 05/12/18 [Last Taken Unknown] I have personally reviewed and updated: family history, medical history, social history, surgical history - Past Medical History hypertension Additional medical history: CKD s/p transplant on chronic immunosuppressive therapy. Secondary hypoparathyroidism. Glaucoma. Skin cancer. Depression. Recurrent UTI most recently 05/27/2018 hospitalization for UTI and bacteremia. E coli/ESBL. JOSE on CPAP at HS. Restless leg syndrome. Insomnia. Obesity ( BMI 31.9) status post gastric bypass. Chronic non infectious diarrhea with a remote history of C diff. - Surgical History Additional surgical history: Renal transplant. Left upper extremity fistula. History peritoneal dialysis catheter. Bilateral TKA. Hysterectomy. Appendectomy. Gastric bypass. Bilateral cataract extraction with lens placement - Family History Additional family history: Denies family hx of kidney disease - Social History Smoking Status: Former smoker Alcohol Use: None (Patient previously drink 2 glasses of wine per day and possibly more heavily before this, but quit in the last several years.) Drug Use: None Additional social history: Patient is from [place]. 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 Patient utilizes a cane occasionally a walker for mobilization. She wears CPAP at . Cor status is full Review of Systems Review of Systems: ROS: 10pt was reviewed & negative except for what was stated in HPI & below Physical Exam Physical Exam: Temp Pulse Resp BP Pulse Ox 36.7 C 61 14 151/71 H 93 06/21/18 23:20 06/21/18 23:20 06/21/18 23:20 06/21/18 23:20 06/21/18 23:20 Constitutional: no apparent distress, chronically ill appearing, obese, uncomfortable, other (NAD. Pleasant frail lady is lying quietly in bed but does appear little uncomfortable with movement of her legs. She appears older than stated age.) Eyes: PERRL (Lens reflex appreciated bilaterally.), anicteric sclera, EOMI, No scleral injection Ears, Nose, Mouth, Throat: moist mucous membranes, other (His multiple well- healed surgical scars and deformities related to her skin cancer resections.), No poor dentition Cardiovascular: regular rate and rhythym, no murmur, rub, or gallop, pulses symmetric bilaterally, edema (Trace nonpitting.) Peripheral Pulses: 1+: dorsalis-pedis (R), dorsalis-pedis (L) Respiratory: no respiratory distress, no rales or rhonchi, clear to auscultation , reduced air movement (Decreased inspiratory effort but otherwise clear.), No inspiratory crackles Gastrointestinal: normoactive bowel sounds, soft, non-tender abdomen, no palpable masses, other (Obese abdomen), No tenderness, No distension Genitourinary: no bladder tenderness, No brooks in urethra Skin: warm, normal color, abrasion (Left face contusion and abrasion over left cheek. Abrasions and bruising in various stages of resolution on her upper extremities right more than left) Musculoskeletal: generalized weakness (Patient is able to sit up but with a little bit of difficulty in use of side rails. Overall strength of extremities is 4/5.) Neurologic: AAOx3, sensation intact bilaterally, other (Grossly nonfocal exam. Patient with generalized weakness as noted above.), No facial droop Psychiatric: interacting appropriately, not anxious, not encephalopathic, thought process linear, anxious, other (Thought process, content, questions are appropriate. Patient is pleasant and cooperative.), No depressed Lab Data & Imaging Review 06/21/18 20:55 06/21/18 20:55 WBC 7.78 10^3/uL (3.80-9.50) 06/21/18 20:55 RBC 3.52 10^6/uL (4.18-5.33) L 06/21/18 20:55 Hgb 11.4 g/dL (12.6-16.3) L 06/21/18 20:55 Hct 35.9 % (38.0-47.0) L 06/21/18 20:55 MCV 102.0 fL (81.5-99.8) H 06/21/18 20:55 MCH 32.4 pg (27.9-34.1) 06/21/18 20:55 MCHC 31.8 g/dL (32.4-36.7) L 06/21/18 20:55 RDW 13.6 % (11.5-15.2) 06/21/18 20:55 Plt Count 150 10^3/uL (150-400) 06/21/18 20:55 MPV 9.4 fL (8.7-11.7) 06/21/18 20:55 Neut % (Auto) 85.2 % (39.3-74.2) H 06/21/18 20:55 Lymph % (Auto) 6.3 % (15.0-45.0) L 06/21/18 20:55 [place] % (Auto) 7.2 % (4.5-13.0) 06/21/18 20:55 Eos % (Auto) 0.8 % (0.6-7.6) 06/21/18 20:55 Baso % (Auto) 0.1 % (0.3-1.7) L 06/21/18 20:55 Nucleat RBC Rel Count 0.0 % (0.0-0.2) 06/21/18 20:55 Absolute Neuts (auto) 6.63 10^3/uL (1.70-6.50) H 06/21/18 20:55 Absolute Lymphs (auto) 0.49 10^3/uL (1.00-3.00) L 06/21/18 20:55 Absolute Monos (auto) 0.56 10^3/uL (0.30-0.80) 06/21/18 20:55 Absolute Eos (auto) 0.06 10^3/uL (0.03-0.40) 06/21/18 20:55 Absolute Basos (auto) 0.01 10^3/uL (0.02-0.10) L 06/21/18 20:55 Absolute Nucleated RBC 0.00 10^3/uL (0-0.01) 06/21/18 20:55 Immature Gran % 0.4 % (0.0-1.1) 06/21/18 20: Immature Gran # 0.03 10^3/uL (0.00-0.10) 06/21/18 20:55 RBC/WBC/PLT Morphology TNP 06/21/18 20:55 Platelet Estimate TNP 06/21/18 20:55 Sodium 139 mEq/L (135-145) 06/21/18 20:55 Potassium 3.9 mEq/L (3.3-5.0) 06/21/18 20:55 Chloride 110 mEq/L (97-110) 06/21/18 20:55 Carbon Dioxide 19 mEq/l (22-31) L 06/21/18 20:55 Anion Gap 10 mEq/L (8-16) 06/21/18 20:55 BUN 64 mg/dL (7-23) H 06/21/18 20:55 Creatinine 1.8 mg/dL (0.6-1.0) H 06/21/18 20:55 Estimated GFR 28 06/21/18 20:55 Glucose 132 mg/dL (70-100) H 06/21/18 20:55 Calcium 8.7 mg/dL (8.5-10.4) 06/21/18 20:55 Urine Color YELLOW 06/21/18 22:00 Urine Appearance CLEAR 06/21/18 22:00 Urine pH 5.0 (5.0-7.5) 06/21/18 22:00 Ur Specific [place] 1.009 (1.002-1.030) 06/21/18 22:00 Urine Protein NEGATIVE (NEGATIVE) 06/21/18 22:00 Urine Ketones NEGATIVE (NEGATIVE) 06/21/18 22:00 Urine Blood NEGATIVE (NEGATIVE) 06/21/18 22:00 Urine Nitrate NEGATIVE (NEGATIVE) 06/21/18 22:00 Urine Bilirubin NEGATIVE (NEGATIVE) 06/21/18 22:00 Urine Urobilinogen NEGATIVE EU (0.2-1.0) 06/21/18 22:00 Ur Leukocyte Esterase NEGATIVE (NEGATIVE) 06/21/18 22:00 Urine Glucose NEGATIVE (NEGATIVE) 06/21/18 22:00 Imaging Review: CT Brain (Without Contrast) at 2055 hours History: Trauma, head injury, fall. Technique: Axial computed tomographic images of the brain, without contrast. Dose reduction techniques were utilized. Multiplanar reconstructions including 3D reconstructions performed and evaluated on [employer] workstation in order to better evaluate for occult calvarial or facial bone fractures. Comparison: CT brain February 2018. Findings: Stable-appearing 9-mm calcification in the right parietal centrum semiovale region, with Hounsfield units up to 103, unchanged since February 2018. No evidence of acute hemorrhage. Ventricles, cisterns, and sulci are widened consistent with atrophy. No hydrocephalus, midline shift/herniation, or epidural/subdural hematomas. No acute intraparenchymal hemorrhage or mass effect. Cerebrovascular atherosclerosis. Hypodensities in the white matter of bilateral cerebral hemispheres. Bone windows demonstrate no displaced fractures. Mild mucosal thickening left maxillary sinus. No fluid in the paranasal sinuses or mastoid air cells. No skull fracture. Impression: 1. Moderate atrophy. 2. No acute hemorrhage, hydrocephalus, or mass effect. 3. Cerebrovascular atherosclerosis. 4. No definite acute infarct. 5. Moderate microvascular ischemic gliosis. 6. Stable right parietal benign calcification, unchanged since February 2018. 7. No epidural or subdural hematoma. 8. No skull fracture. Findings and recommendations discussed with Emergency Department physician, Adam Watkins M.D. , at 2125 hours, on June 21, 2018. Final report concurs with initial preliminary interpretation. Dictated By: Danny Cullen Ultrasound Venous Duplex/Doppler Right Leg History: Pain and swelling. *Leg pain, possible DVT* Findings: Ultrasound venous duplex and Doppler imaging of the common femoral vein, femoral vein, popliteal vein, calf veins, greater saphenous vein origin, and contralateral common femoral vein demonstrates normal compressibility, color flow, and Doppler flow without deep venous thrombosis. Soft tissue swelling. Impression: No deep venous thrombosis right leg. Findings and recommendations discussed with Emergency Department physician, Adam Watkins MD at 22:03 hour, 06/21/2018. Final report concurs with initial preliminary interpretation. Dictated By: Danny Cullen Visualized and Interpreted imaging results: Yes Assessment & Plan Assessment: Pleasant 72-year-old female with history of renal failure status post transplant kidney on chronic immunosuppression, recent hospitalization for bacteremia PE UTI E coli status post outpatient antibiotic infusions who presents to the ED today following a mechanical fall with complaints of generalized weakness right lower leg pain and swelling found to have right lower extremity cellulitis. #Cellulitis of right leg (Acute) - no evidence of SIRS/sepsis however patient is chronically immunosuppressed for her renal transplant. patient reports that she has frequent injuries the superficial to her right lower extremity due to her cane falling down occasionally on her leg. She was not started on vancomycin will monitor renal function quite closely at this point. Right lower extremity ultrasound negative for evidence of DVT. Will request RNs keep that leg elevated and also outlined area of erythema. Hold off on Infectious Disease consult pending a.m. Reassessment as per day team. #Minor head injury (Acute) - patient with mechanical fall related to generalized weakness in setting of acute infectious process. She denies any focal deficits she has had intermittent headaches however CT head without any acute changes. #Skin tear of right upper extremity - patient is bandaged monitor for any signs of infection but patient currently on antibiotics as noted above. #Immunosuppressive state - resume patient's home medications including azathioprine, tacrolimus, prednisone once med list is available for reconciliation. #Acute on CKD stage 3 status post transplant - some gentle IV fluid hydration overnight. BUN is elevated. Repeat BMPs and monitor closely. Chronic medical problems #Benign essential hypertension - blood pressures at this time are acceptable. # anemia likely of chronic disease. Patient without any evidence of active bleeding however she does have notable bruising contusions to in various stages as of healing on her upper lower extremities. Patient has been holding her aspirin in anticipation for additional resection of her skin cancer on her scalp. #Restless leg syndrome - continue gabapentin #Insomnia - continue trazodone. #History DVT remotely not on anticoagulation - right lower extremity negative for evidence of DVT. #History ESBL, E coli bacteremia - UA is clear. Patient reports she completed her course of antibiotic therapy infusions followed by Dr. Quigley. Isolation precautions as per hospital policy.. #History of recurrent UTI - as noted above #JOSE on CPAP - loaner CPAP ordered. #Depression - resume patient's venlafaxine and Paxil. Otherwise appropriate at this time. Patient without any SI or HI. FEN - IV fluids overnight for some gentle hydration. Repeat electrolytes in the morning replace if needed. Diet as tolerated. PPX-holding SCDs in setting of right lower extremity cellulitis and edema. Heparin in setting of chronic kidney disease. Cor status-full Disposition-patient admitted to observation status on the PCU floor as medical Jose overflow.
[2018-06-22] MEDS: HYDROCODONE/APAP 5/325 TAB PO PRN ×2 (00:21→22:33)
[2018-06-22] MEDS: GABAPENTIN 100 MG CAP PO SCH ×3 (00:21→22:28)
[2018-06-22 03:56] LABS: PLATELET COUNT 150 10^3/uL (150-400)
[2018-06-22] MEDS ORDERED: HEPARIN 5,000 UNIT/0.5 ML INJ SC SCH (06:00)
[2018-06-22] MEDS: ACETAMINOPHEN 325 MG TAB PO PRN ×2 (10:20→17:35)
--- NOTE | 2018-06-22 12:43 | HOSPPROG ---
Hospitalist Progress Note Assessment/Plan: DIAGNOSES: * cellulitis of leg * fall at home with chronic gait instability * scalp contusion from fall but no evidence of concussion or other cranial or intracranial injury * abrasion to right arm from her fall, no evidence of infection * acute on chronic renal failure with history of transplant * ESBL E coli bacteremia 2 months ago, so will require contact isolation here * chronic 6 sleep apnea on CPAP at home * chronic depression on therapy * chronic anemia at her baseline Cellulitis does look slightly better on exam today In terms of her gait instability she has worked well today with our therapist, is actually ambulating safely here at this time. Patient fell trying to reach for her cane from a chair. She will need ongoing education regarding doing transfers PLANS: * Continue current antibiotics * Continue physical occupational therapy * CPAP * Follow renal function * DVT prophylaxis SUBJECTIVE: Feels better overall today No headache OBJECTIVE Vitals reviewed: Stable without fever Program Manager, my review: Sinus Exam: alert oriented skin warm dry color ok resps not labored lungs clear BSs heart regular abd soft nondistended nontender, bowel sounds present limbs her cellulitis looks the somewhat less erythema is today but is not decreased in its area, no signs of abscess or necrosis iv site ok Laboratory data: Creatinine improved to 1.6 Phos high at 4.7 Other electrolytes good White blood cell count still remains normal, hemoglobin remains stable at her chronic baseline anemia which is normocytic from renal disease Objective: Vital Signs Temp Pulse Resp BP Pulse Ox 36.5 C 66 13 145/58 H 96 06/22/18 07:05 06/22/18 07:05 06/22/18 07:05 06/22/18 07:05 06/22/18 07:05 Laboratory Results 06/22/18 03:16 06/22/18 03:16 06/21/18 06/22/18 06/23/18 06:59 06:59 06:59 Intake Total 900 Output Total 450 1000 Balance 450 -1000 ICD10 Worksheet Patient Problems: Problems Problem Status Onset Cellulitis of right leg Acute Minor head injury Acute Skin tear of right upper extremity Acute Abdominal wall hematoma Acute Anemia Acute CKD (chronic kidney disease) Acute Cellulitis of left leg Acute Dehydration Acute Fall Acute Fever Acute Hypoxemia Acute Intracerebral hematoma Acute
--- NOTE | 2018-06-22 12:48 | HOSPPROG ---
Hospitalist Progress Note Assessment/Plan: DIAGNOSES: * cellulitis of leg * the immune suppression from her meds for renal transplant * fall at home with chronic gait instability * scalp contusion from fall but no evidence of concussion or other cranial or intracranial injury * abrasion to right arm from her fall, no evidence of infection * acute on chronic renal failure with history of transplant * ESBL E coli bacteremia 2 months ago, so will require contact isolation here * chronic 6 sleep apnea on CPAP at home * chronic depression on therapy * chronic anemia at her baseline Cellulitis does look slightly better on exam today In terms of her gait instability she has worked well today with our therapist, is actually ambulating safely here at this time. Patient fell trying to reach for her cane from a chair. She will need ongoing education regarding doing transfers PLANS: * Continue current antibiotics * At this time will continue her immune suppressant medicines as long as she resolved her infection appropriately * Continue physical occupational therapy * CPAP * Follow renal function * DVT prophylaxis SUBJECTIVE: Feels better overall today No headache OBJECTIVE Vitals reviewed: Stable without fever Dictating Machine Mechanic, my review: Sinus Exam: alert oriented skin warm dry color ok resps not labored lungs clear BSs heart regular abd soft nondistended nontender, bowel sounds present limbs her cellulitis looks the somewhat less erythema is today but is not decreased in its area, no signs of abscess or necrosis iv site ok Laboratory data: Creatinine improved to 1.6 Phos high at 4.7 Other electrolytes good White blood cell count still remains normal, hemoglobin remains stable at her chronic baseline anemia which is normocytic from renal disease Objective: Vital Signs Temp Pulse Resp BP Pulse Ox 36.5 C 66 13 145/58 H 96 06/22/18 07:05 06/22/18 07:05 06/22/18 07:05 06/22/18 07:05 06/22/18 07:05 Laboratory Results 06/22/18 03:16 06/22/18 03:16 06/21/18 06/22/18 06/23/18 06:59 06:59 06:59 Intake Total 900 Output Total 450 1000 Balance 450 -1000 ICD10 Worksheet Patient Problems: Problems Problem Status Onset Cellulitis of right leg Acute Minor head injury Acute Skin tear of right upper extremity Acute Abdominal wall hematoma Acute Anemia Acute CKD (chronic kidney disease) Acute Cellulitis of left leg Acute Dehydration Acute Fall Acute Fever Acute Hypoxemia Acute Intracerebral hematoma Acute
--- NOTE | 2018-06-22 14:07 | ASMTCMCOM ---
CM Note CM Note Notes: Patient admitted for Cellulitis of the leg - currently on IV abx. Patient is a member of the [facility] [facility]. Notified Tamera at [facility] today of patient's admission #[phone]. Patient was recently admitted to [facility] the beginning of May for same dx - d/c'd home in the care of [facility] with [facility]. Sounds like patient is ambulating safetly at this time but would still benefit from some therapy at [facility]. If it unclear what the IV abx needs will be - CM will continue to follow. Given patient is part of [facility] - they will need to be involved in any dispo planning. D/C Plan: Likely home with [facility]. Will ctoninue to follow for any IV abx needs. Date Signed: 06/22/2018 02:06 PM Electronically Signed By:Zamzam Anguiano RN
[2018-06-22] MEDS: SERTRALINE HCL 100 MG TAB PO SCH (14:44)
[2018-06-22] MEDS: predniSONE 5 MG TAB PO SCH (14:44)
[2018-06-22] MEDS: azaTHIOprine 50 MG TAB PO SCH (14:44)
[2018-06-22] MEDS ORDERED: BACITRACIN OINTMENT 1 PACKET TP ONE (14:56)
[2018-06-22] MEDS: CARVEDILOL 25 MG TAB PO SCH (17:35)
[2018-06-22] MEDS ORDERED: TACROLIMUS 1 MG CAP PO SCH (21:00)
[2018-06-22] MEDS: VANCOMYCIN HCL/NORMAL SALINE 250 ML IV SCH (22:18)
[2018-06-22] MEDS: cycloSPORINE 0.05% 30 DROPERETTE/BOX EACHEYE SCH (22:23)
[2018-06-22] MEDS: DORZOLAMIDE/TIMOLOL 10 ML OPHT.BTL EACHEYE SCH (22:25)
[2018-06-22] MEDS: BUMETANIDE 1 MG TAB PO SCH (22:26)
[2018-06-22] MEDS: TACROLIMUS 1 MG CAP PO SCH (22:28)
[2018-06-23] MEDS: BUMETANIDE 1 MG TAB PO SCH ×2 (08:13→20:24)
[2018-06-23] MEDS: azaTHIOprine 50 MG TAB PO SCH (08:14)
[2018-06-23] MEDS: PRESERVISION AREDS2 FORMULA EYE VIT 1 EACH PO SCH (08:14)
[2018-06-23] MEDS: TACROLIMUS 1 MG CAP PO SCH ×2 (08:14→20:25)
[2018-06-23] MEDS: SERTRALINE HCL 100 MG TAB PO SCH (08:14)
[2018-06-23] MEDS: CALCITRIOL 0.25 MCG CAP PO SCH (08:14)
[2018-06-23] MEDS: CHOLECALCIFEROL VIT D3 2,000 UNITS TAB/CAP PO SCH (08:14)
[2018-06-23] MEDS: ACETAMINOPHEN 325 MG TAB PO PRN ×2 (08:15→17:21)
[2018-06-23] MEDS: predniSONE 5 MG TAB PO SCH (08:15)
[2018-06-23] MEDS: CARVEDILOL 25 MG TAB PO SCH ×2 (08:15→17:21)
[2018-06-23] MEDS: ASPIRIN EC 81 MG TAB PO SCH (08:15)
[2018-06-23] MEDS: cycloSPORINE 0.05% 30 DROPERETTE/BOX EACHEYE SCH ×2 (08:16→20:27)
[2018-06-23] MEDS: ENOXAPARIN 30 MG/0.3 ML SYR SC SCH (08:16)
[2018-06-23] MEDS: DORZOLAMIDE/TIMOLOL 10 ML OPHT.BTL EACHEYE SCH ×2 (08:17→20:28)
[2018-06-23] MEDS: HYDROCODONE/APAP 5/325 TAB PO PRN ×2 (12:05→20:23)
--- NOTE | 2018-06-23 12:35 | HOSPPROG ---
Hospitalist Progress Note Assessment/Plan: DIAGNOSES: * cellulitis of right lower leg without evidence of abscess or tissue compromise * immune suppression from her meds for renal transplant * fall at home with chronic gait instability; uses cane at home * Physical therapy so far recommending changed to a walker at this time * scalp contusion from fall but no evidence of concussion or other cranial or intracranial injury * abrasion to right arm from her fall, no evidence of infection * acute on chronic renal failure with history of transplant * Improving with treatment so far * ESBL E coli bacteremia 2 months ago, so will require contact isolation here * chronic bilateral leg edema with chronic stasis dermatitis * significant deconditioning and generalized weakness, chronic * chronic sleep apnea on CPAP at home * chronic depression on therapy * chronic anemia at her baseline Seen by me today on multidisciplinary rounds as well as hospitals rounds PLANS: * Continue IV vancomycin at this time; today is 3rd dose so will need a trough level before tomorrow's dose * At the time of discharge could consider switching to oral antibiotic, this does appear likely to be a staph infection and there could be some risk of resistance which I have reviewed with the patient * At this time will continue her immune suppressant medicines as long as she resolved her infection appropriately * Continue physical occupational therapy * I had a very long discussion with the patient today regarding fall risk precautions, as well as the benefits of increasing her level of physical activity in a supervised setting to increase strength and endurance and balance ; consider outpatient fall risk prevention training * I had a long discussion with the patient about the use of leg elevation, low- salt diet, and compression stockings for reducing the risk of further complications of her chronic stasis dermatitis, as well as daily inspections of the skin for any signs of open wounds or infection * CPAP here * Repeat creatinine tomorrow to recheck renal function * DVT prophylaxis SUBJECTIVE: Feels better overall today No headache OBJECTIVE Vitals reviewed: Stable without fever Draw End Hand, my review: Sinus Exam: alert oriented skin warm dry color ok resps not labored lungs clear BSs heart regular abd soft nondistended nontender, bowel sounds present limbs her cellulitis looks the somewhat less erythema is today but is not decreased in its area, no signs of abscess or necrosis iv site ok Objective: Vital Signs Temp Pulse Resp BP Pulse Ox 36.7 C 53 L 22 H 130/60 H 90 L 06/23/18 12:00 06/23/18 12:00 06/23/18 12:00 06/23/18 12:00 06/23/18 12:00 Laboratory Results 06/22/18 03:16 06/22/18 03:16 06/22/18 06/23/18 06/24/18 06:59 06:59 06:59 Intake Total 900 1720 Output Total 450 2850 Balance 450 -1130 - Time Spent With Patient Time Spent with Patient: greater than 35 minutes Time Spent with Patient: Greater than 35 minutes spent on this patients care, greater than 50% of time spent counseling, educating, and coordinating care regarding the above mentioned plan. ICD10 Worksheet Patient Problems: Problems Problem Status Onset Cellulitis of right leg Acute Minor head injury Acute Skin tear of right upper extremity Acute Abdominal wall hematoma Acute Anemia Acute CKD (chronic kidney disease) Acute Cellulitis of left leg Acute Dehydration Acute Fall Acute Fever Acute Hypoxemia Acute Intracerebral hematoma Acute
--- NOTE | 2018-06-23 15:14 | PDMN ---
Medical Necessity Medical [place] [facility] [place]: 72 y/o w/ cellulitis, is immunosuppressd from renal transplant, chronic gait instability, PT/OT working with pt, contact isolation for past ESBL e coli bacteremia 2 mo ago, significant deconditioning and generalized weakness, need to continue IV Vanco, need a trough level before tomorrow's dose, likely cellulitis is a staph infection, could be some risk of resistance, cont w/ PTOT, Change status to inpt per MD order 06/23/18 at 1335 for ongoing monitoring and treatment of cellulitis with IV antibx.
[2018-06-23] MEDS: GABAPENTIN 100 MG CAP PO SCH (20:23)
[2018-06-23] MEDS: VANCOMYCIN HCL/NORMAL SALINE 250 ML IV SCH (23:22)
[2018-06-24] MEDS: CALCITRIOL 0.25 MCG CAP PO SCH (07:47)
[2018-06-24] MEDS: TACROLIMUS 1 MG CAP PO SCH (07:48)
[2018-06-24] MEDS: BUMETANIDE 1 MG TAB PO SCH (07:49)
[2018-06-24] MEDS: ASPIRIN EC 81 MG TAB PO SCH (07:50)
[2018-06-24] MEDS: predniSONE 5 MG TAB PO SCH (07:50)
[2018-06-24] MEDS: SERTRALINE HCL 100 MG TAB PO SCH (07:50)
[2018-06-24] MEDS: azaTHIOprine 50 MG TAB PO SCH (07:50)
[2018-06-24] MEDS: CARVEDILOL 25 MG TAB PO SCH (07:50)
[2018-06-24] MEDS: ENOXAPARIN 30 MG/0.3 ML SYR SC SCH (07:50)
[2018-06-24] MEDS: PRESERVISION AREDS2 FORMULA EYE VIT 1 EACH PO SCH (07:50)
[2018-06-24] MEDS: CHOLECALCIFEROL VIT D3 2,000 UNITS TAB/CAP PO SCH (07:50)
[2018-06-24] MEDS: cycloSPORINE 0.05% 30 DROPERETTE/BOX EACHEYE SCH (07:52)
[2018-06-24 07:58] VITALS: BP 141/65
[2018-06-24] MEDS: ACETAMINOPHEN 325 MG TAB PO PRN (09:59)
[2018-06-24] MEDS: DORZOLAMIDE/TIMOLOL 10 ML OPHT.BTL EACHEYE SCH (09:59)
[2018-06-24] MEDS ORDERED: CEPHALEXIN 250 MG CAP PO SCH (12:00)
--- NOTE | 2018-06-24 12:02 | PDIAF ---
- Diagnosis Code Status: Full Code - Medication Management Discharge Medications: Medications to Continue on Transfer Aspirin EC [Aspirin EC 81 mg (*)] 81 mg PO DAILY 03/02/18 [Last Taken 06/21/18] azaTHIOprine [Imuran 50 mg (*)] 50 mg PO DAILY 03/02/18 [Last Taken 06/21/18] predniSONE 5 mg PO DAILY 03/02/18 [Last Taken 06/21/18] traZODone [traZODone 150MG (*)] 150 mg PO HS 03/02/18 [Last Taken 06/21/18] Bumetanide [Bumex (*)] 1 mg PO BID 05/11/18 [Last Taken 06/21/18] C/E/Zn/Cu/OM3/DHA/EPA/LUT/ZEAX [Preservision Areds 2 Softgel] 1 each PO DAILY [Last Taken 06/21/18] Cholecalciferol (Vitamin D3) [Vitamin D3] 2,000 unit PO DAILY 05/11/18 [Last Taken 06/21/18] Tacrolimus [Prograf] 3 mg PO DAILY 05/11/18 [Last Taken 06/21/18] Tacrolimus [Prograf] 3 mg PO HS 05/11/18 [Last Taken 06/21/18] Dorzolamide/Timolol [Cosopt (*)] 1 drops EACHEYE BID 05/12/18 [Last Taken ] Polyvinyl Alcohol/Povidone/Pf [Refresh Classic Eye Drops] 1 each EACHEYE DAILY@ 1200 05/12/18 [Last Taken 06/21/18] cycloSPORINE 0.05% [Restasis Opht Drops(*)] 1 drop EACHEYE BID 05/12/18 [Last Taken 06/21/18] Acetaminophen [Acetaminophen Extra Strength] 500 mg PO Q6H PRN 06/22/18 [Last Taken 06/21/18] Calcitriol 0.5 mcg PO DAILY 06/22/18 [Last Taken Unknown] Carvedilol [Coreg (*)] 25 mg PO BIDMEAL 06/22/18 [Last Taken 06/21/18] Gabapentin [Neurontin 100 MG (*)] 100 mg PO HS 06/22/18 [Last Taken 06/21/18] Sertraline HCl [Zoloft 100mg (*)] 100 mg PO DAILY 06/22/18 [Last Taken 06/21/18] Cephalexin [Keflex (*)] 250 mg PO Q6HRS #28 cap 06/24/18 [Last Taken Unknown] Doxycycline Hyclate [Vibramycin 100 MG (*)] 100 mg PO BID #14 capsule 06/24/18 [ Last Taken Unknown] Ixekizumab [Taltz Autoinjector] 80 mg SQ Q14D 06/24/18 [Last Taken Unknown] Discharge Medications: Refer to the Discharge Home Medication list for PRN reason. - Orders Services needed: Home Care, Registered Nurse, Physical Therapy, Occupational Therapy Home Care Face to Face: I certify that this patient was under my care and that I had the required [id number] encounter meeting the encounter requirements on the discharge day. My findings support the fact that the patient is homebound as defined in Home Care Face to Face Continued: CMS Chapter 7 Medicare Benefits Manual 30.1.1 , The condition of the patient is such that there exists a normal inability to leave home and consequently, leaving home would require a considerable and taxing effort. Isolation Type: Contact Isolation Diet Recommendation: no restrictions on diet - Labs/Radiology BMP Date: 06/26/18 - Follow Up Care Current Providers and Referrals: Patient,NotPresent [Unknown] - As per Instructions
--- NOTE | 2018-06-24 12:49 | ASMTDCNOTE ---
Case Management Discharge Discharge Order Complete? Answers: Yes Patient to Obtain Answers: Other Notes: [facility] Medications Transportation Arranged Answers: Family/Friends Transport will Pick (Date 06/24/2018 12:00 AM & Time) Faxed Final Orders Answers: Yes Family Notified Answers: Yes Notes: by patient Discharge Comments Notes: Pt to discharge home to [facility] and increase her participation in [facility] day program which will arrange for medications and HC PT/OT/RN. Orders Faxed to Dr. Virk at [facility]. No further CM needs noted at this time. CM available for any further noted needs. Date Signed: 06/24/2018 12:48 PM Electronically Signed By:Blessing Anthony
--- NOTE | 2018-06-24 12:52 | ASMTLACE ---
LENIN Length of stay for Answers: 4-6 days current admission Acuity / Level of Answers: Yes Care: Did the patient have an inpatient admission? Comorbidities - select Answers: Diabetes (uncontrolled or all that apply controlled) History of falls Mild liver or renal disease Other Notes: HTN # of Emergency department Answers: 1-2 visits in the last 6 months Social determinants Answers: Mental health diagnosis (anxiety, depression, pers onality disorders, etc.) Score: 18 Date Signed: 06/24/2018 12:52 PM Electronically Signed By:Blessing Anthony
[2018-06-24] MEDS ORDERED: DOXYCYCLINE HYCLATE 100 MG CAP/TAB PO SCH (21:00)
== END 2018-06-24 15:28 | disposition home health service (06) | DRG 602 ==
LOC: EDUNIT# → F2W 23:08 → OBSVTOIN 06-23 13:35
PROVIDERS: ADMIT Family Medicine; ATTEND Family Medicine
DX: L03.115 Cellulitis of right lower limb (principal); S09.90XA Unspecified injury of head, initial encounter; W19.XXXA Unspecified fall, initial encounter; R26.9 Unspecified abnormalities of gait and mobility; Z91.81 History of falling; N17.9 Acute kidney failure, unspecified; I12.0 Hypertensive chronic kidney disease with stage 5 chronic kidney disease or end stage renal disease; N18.6 End stage renal disease; N25.81 Secondary hyperparathyroidism of renal origin; G47.33 Obstructive sleep apnea (adult) (pediatric); G25.81 Restless legs syndrome; D63.8 Anemia in other chronic diseases classified elsewhere; E66.9 Obesity, unspecified; Z68.31 Body mass index [BMI] 31.0-31.9, adult; Z98.84 Bariatric surgery status; F32.9 Major depressive disorder, single episode, unspecified; Z96.653 Presence of artificial knee joint, bilateral; Z87.891 Personal history of nicotine dependence; Z87.440 Personal history of urinary (tract) infections; Z86.718 Personal history of other venous thrombosis and embolism; Z94.0 Kidney transplant status
CPT/HCPCS: 92523-GN; 96365; 97116-GP; 97161-GP; 97166-GO; 97530-GP; 97535-GO; G0378; G8978-GP-CJ; G8979-GP-CI; G8987-GO-CI; G8988-GO-CI; G9165-GN-CH; G9166-GN-CH; G9167-GN-CH; J1644; J1650; J2270; J3370; J7500; J7507; J7512

== ENCOUNTER → 2018-07-24 | Outpatient (CLI) | payer OTHER | LOC: FIMAGING 08:27 | PROVIDERS: ATTEND Nurse Practitioner Family | DX: G31.9 Degenerative disease of nervous system, unspecified (principal); Q04.9 Congenital malformation of brain, unspecified; R90.82 White matter disease, unspecified ==

== ENCOUNTER 2018-07-30 20:09 | Emergency (ER) | payer OTHER, MEDICAID ==
[2018-07-30] MEDS ORDERED: HYDROmorphONE/DILAUDID 2 MG/ML INJ IVP ONE (21:04)
--- NOTE | 2018-07-30 21:11 | EDPHY ---
H & P Stated Complaint: hematoma Time Seen by Provider: 07/30/18 20:57 HPI/ROS: CHIEF COMPLAINT: Hematoma HISTORY OF PRESENT ILLNESS: The patient is a 72-year-old female who bumped her leg on the side of the dresser around 4:00 this evening. She has developed a large hematoma at the site. She is having significant pain. It is tense. She is not concerned about fracture. The x-ray was ordered by nursing protocol. She is not on blood thinners other than aspirin. She denies other injuries. Severity: Moderate Modifying factors: None REVIEW OF SYSTEMS: Constitutional: denies: chills, fever, recent illness, recent injury EENTM: denies: blurred vision, double vision, nose congestion Respiratory: denies: cough, shortness of breath Cardiac: denies: chest pain, irregular heart rate, lightheadedness, palpitations Gastrointestinal/Abdominal: denies: abdominal pain, diarrhea, nausea, vomiting, blood streaked stools Genitourinary: denies: dysuria, frequency, hematuria, pain Musculoskeletal: denies: joint pain, muscle pain Skin: denies: lesions, rash, jaundice, bruising Neurological: denies: headache, numbness, paresthesia, tingling, dizziness, weakness Hematologic/Lymphatic: denies: blood clots, easy bleeding, easy bruising Immunologic/allergic: denies: HIV/AIDS, transplant 10 systems reviewed and negative except as noted EXAM: GENERAL: Well-appearing, well-nourished and in no acute distress. HEAD: Atraumatic, normocephalic. EYES: Pupils equal round and reactive to light, extraocular movements intact, sclera anicteric, conjunctiva are normal. ENT: TMs normal, nares patent, oropharynx clear without exudates. Moist mucous membranes. NECK: Normal range of motion, supple without lymphadenopathy or JVD. LUNGS: Breath sounds clear to auscultation bilaterally and equal. No wheezes rales or rhonchi. HEART: Regular rate and rhythm without murmurs, rubs or gallops. ABDOMEN: Soft, nontender, normoactive bowel sounds. No guarding, no rebound. No masses appreciated. BACK: No CVA tenderness, no spinal tenderness, step-offs or deformities EXTREMITIES: Large hematoma to right lateral calf. It is tense and tender, no deformity. No sign of infection. It is quite superficial. NEUROLOGICAL: Cranial nerves II through XII grossly intact. Normal speech, normal gait. 5/5 strength, normal movement in all extremities, normal sensation , normal reflexes PSYCH: Normal mood, normal affect. SKIN: Warm, dry, normal turgor, no visible rashes or lesions. Source: Patient Exam Limitations: No limitations - Personal History Current Tetanus/Diphtheria Vaccine: Unsure Current Tetanus Diphtheria and Acellular Pertussis (TDAP): Unsure - Medical/Surgical History Hx Asthma: No Hx Chronic Respiratory Disease: No Hx Diabetes: Yes Hx Cardiac Disease: No Hx Renal Disease: No Hx Cirrhosis: No Hx Alcoholism: No Hx HIV/AIDS: No Hx Splenectomy or Spleen Trauma: No Other PMH: HTN, arthritis, hearing loss, macular degeneration, incontinence, R kidney transplant, knee replacement, glaucoma, sleep apnea, skin CA, blood infection, appy, gastric bypass, AV fistula for previous dialysis,murmur, pneumonia. appy, - Family History Significant Family History: No pertinent family hx - Social History Smoking Status: Former smoker Alcohol Use: Sober Drug Use: None Constitutional: Initial Vital Signs Temperature (C) 36.9 C 07/30/18 20:47 Heart Rate 67 07/30/18 20:47 Respiratory Rate 20 07/30/18 20:47 Blood Pressure 156/88 H 07/30/18 20:47 O2 Sat (%) 94 07/30/18 20:47 O2 Delivery Mode Room Air Allergies/Adverse Reactions: metronidazole [From Flagyl] Allergy (Verified 07/30/18 20:18) Rash sulfamethoxazole [From Bactrim] Allergy (Verified 07/30/18 20:18) Rash trimethoprim [From Bactrim] Allergy (Verified 07/30/18 20:18) Rash wheat Allergy (Verified 07/30/18 20:18) Home Medications: Medication Instructions Recorded Aspirin EC [Aspirin EC 81 mg (*)] 81 mg PO DAILY 03/02/18 azaTHIOprine [Imuran 50 mg (*)] 50 mg PO DAILY 03/02/18 predniSONE 5 mg PO DAILY 03/02/18 traZODone [traZODone 150MG (*)] 150 mg PO HS 03/02/18 Bumetanide [Bumex (*)] 1 mg PO BID 05/11/18 C/E/Zn/Cu/OM3/DHA/EPA/LUT/ZEAX 1 each PO DAILY 05/11/18 [Preservision Areds 2 Softgel] Cholecalciferol (Vitamin D3) 2,000 unit PO DAILY 05/11/18 [Vitamin D3] Tacrolimus [Prograf] 3 mg PO DAILY 05/11/18 Tacrolimus [Prograf] 3 mg PO HS 05/11/18 Dorzolamide/Timolol [Cosopt (*)] 1 drops EACHEYE BID 05/12/18 Polyvinyl Alcohol/Povidone/Pf 1 each EACHEYE DAILY@1200 05/12/18 [Refresh Classic Eye Drops] cycloSPORINE 0.05% [Restasis Opht 1 drop EACHEYE BID 05/12/18 Drops(*)] Acetaminophen [Acetaminophen Extra 500 mg PO Q6H PRN 06/22/18 Strength] Calcitriol 0.5 mcg PO DAILY 06/22/18 Carvedilol [Coreg (*)] 25 mg PO BIDMEAL 06/22/18 Gabapentin [Neurontin 100 MG (*)] 100 mg PO HS 06/22/18 Sertraline HCl [Zoloft 100mg (*)] 100 mg PO DAILY 06/22/18 Cephalexin [Keflex (*)] 250 mg PO Q6HRS #28 cap 06/24/18 Doxycycline Hyclate [Vibramycin 100 mg PO BID #14 capsule 06/24/18 100 MG (*)] Ixekizumab [Taltz Autoinjector] 80 mg SQ Q14D 06/24/18 Medical Decision Making - Diagnostics Imaging Results: Imaging Impressions Tibia/Fibula X-Ray 07/30/18 20:13 Impression: Medial calf hematoma without underlying fibular fracture. Imaging: Discussed imaging studies w/ call center coordinator Radiologist ED Course/Re-evaluation: The patient has a superficial hematoma. It is quite large, 8 x 5 cm and tense. This was done under sterile conditions. I did aspirate about 40 cc of blood but the rest is clot. The the patient had significant relief of pain. He we discussed options. I feel that incision and hematoma drainage would not be beneficial for the patient and would increase her risk of infection. She does have a history of immunocompromise. The bleeding seems to have stopped as the hematoma is not growing larger. She was dressed with antibiotic ointment, gauze and Bob wrap. I encouraged her to return here if the bleeding resumed or if the pain worsened or if she develops signs of infection which we discussed. She understands and agrees with this plan. She is able to ambulate. Differential Diagnosis: Partial list of the Differential diagnosis considered include but were not limited to; hematoma, skin tear and although unlikely based on the history and physical exam, I also considered fracture, infection. I discussed these differential diagnoses and the plan with the patient as well as the usual and expected course. The patient understands that the diagnosis is provisional and that in medicine we are not always correct and that further workup is often warranted. Usual and customary warnings were given. All of the patient's questions were answered. The patient was instructed to return to the emergency department should the symptoms at all worsen or return, otherwise to followup with the physician as we discussed. - Data Points Medications Given: Discontinued Medications Hydromorphone HCl (Dilaudid) 0.5 mg IVP EDNOW ONE Stop: 07/30/18 21:05 Last Admin: 07/30/18 21:12 Dose: Not Given Departure - Departure Disposition: Home, Routine, Self-Care Clinical Impression: Hematoma of skin Condition: Fair Instructions: Hematoma (ED) Additional Instructions: Return to the emergency department if there are any signs of infection such as erythema or pus. Continue to dressed with antibiotic ointment and gauze and Bob wrap as discussed. Referrals: HAILEE HERNANDES [Other] - 2-3 days, call for appt.
[2018-07-30 22:13] VITALS: BP 156/62
== END 2018-07-30 22:14 | disposition home or self-care (01) ==
LOC: EDUNIT# → EDBD
DX: S80.11XA Contusion of right lower leg, initial encounter (principal); W22.09XA Striking against other stationary object, initial encounter; I10 Essential (primary) hypertension
CPT/HCPCS: J1170

== ENCOUNTER 2018-08-09 10:34 | Inpatient (IN) | payer MEDICAID, OTHER ==
[2018-08-09] MEDS ORDERED: ONDANSETRON DISINTEGRATING 4 MG TAB PO PRN (14:02)
[2018-08-09] MEDS ORDERED: ONDANSETRON 4 MG/2 ML VIAL IVP PRN (14:02)
[2018-08-09 15:17] LABS: PLATELET COUNT 181 10^3/uL (150-400)
[2018-08-09 15:24] LABS: INR 1.25 (0.83-1.16); PROTIME(PATIENT) 15.9 SEC (12.0-15.0)
[2018-08-09] MEDS: oxyCODONE IR 5 MG TAB PO PRN ×2 (15:29→21:33)
--- NOTE | 2018-08-09 16:15 | GHP ---
DATE OF ADMISSION: 08/09/2018 CHIEF COMPLAINT: Right leg hematoma. HISTORY OF PRESENT ILLNESS: This is a 72-year-old female who is on aspirin and bumped her leg on the coffee table 2 weeks ago. She was seen in the emergency department where this was superficially tanya rided, and then sent home. She is in [facility], and has had daily dressing changes there. Hamzah trimble was sent to see Dr. Mejia today who would like to take her to the operating room tomorrow for more complete I and D. She has notably stopped her aspirin. She has significant pain in the right lower leg. She notes that she has 2 separate areas that are oozing, 1 on the slightly lateral posterior, 1 on the anterior side. She has not had any fevers. She has a renal transplant, is on chronic immuno suppression for this. PAST MEDICAL/SURGICAL HISTORY: 1. Renal transplant, on chronic immunosuppression. 2. Glaucoma. 3. Skin cancer. 4. Depression. 5. Recurrent urinary tract infection. 6. JOES, on CPAP. 7. Restless legs syndrome. 8. Insomnia. 9. Obesity. 10. Chronic diarrhea. 11. Left upper extremity fistula. 12. Gastric bypass. 13. History of peritoneal dialysis catheter. 14. Bilateral TKA. 15. Hysterectomy. 16. Appendectomy. 17. Bilateral cataract extraction with lens placement. MEDICATIONS: Please see medication reconciliation. ALLERGIES: Gluten, metronidazole, sulfamethoxazole, trimethoprim, and wheat. SOCIAL HISTORY: She quit smoking, and she quit drinking years ago. FAMILY HISTORY: No history of kidney disease. REVIEW OF SYSTEMS: A 10-point review of systems is conducted and is negative, except per HPI. PHYSICAL EXAM: VITAL SIGNS: Blood pressure 161/81, heart rate 67, respiration rate 16, saturating 9 6% on room air, temperature 36.3. GENERAL: The patient is a very pleasant female who is resting com fortably, in no acute distress. HEENT: Shows her to be normocephalic, atraumatic. CARDIOVASCULAR: Regular rate and rhythm. There are no murmurs, rubs, or gallops. PULMONARY: Shows her to be breat dyllan comfortably. Lungs are clear from the anterior bilaterally. ABDOMEN: Soft, nontender, nondist ended. SKIN: No rash. : No Daniels. NEUROLOGIC: Exam shows her to be alert and oriented x3. She has nonfocal neurologic exam. PSYCHIATRIC: Exam shows normal mood and affect. EXTREMITIES: Exam shows her right lower extremity to have a significant area of dark eschar. It is oozing thick blood from a small hole in the anterior, as well as the lateral aspect. There is no significant surroundin g erythema. It is quite tender to palpation. LABS: Hemoglobin is 9.3. INR is 1.2. Bicarb is 19, creatinine is 1.5, BUN is 39, glucose is 160. DATA: 1. Discussed with Dr. Mejia. She will plan to take the patient to the OR tomorrow morning. 2. I reviewed her chart including her ED note from July [address] Nicole. IMPRESSION AND PLAN: 1. Right lower extremity hematoma: Needs operative debridement. She is n.p.o. after midnight. Jurgen campbell hold her aspirin for now. 2. Renal transplant/chronic kidney disease: Her creatinine is at baseline. She has a mild acidosis , which I suspect is due to her kidneys, though would also consider a gastrointestinal source. I jurgen campbell continue her immunosuppressants. Will give her a slow intravenous fluids after midnight to protect her kidney, as well as hold her Bumex perioperatively. Would restart this soon. Will continue her calcitriol. 3. Anemia: She is probably at her baseline, though may be slightly lower. Will recheck this tomorr ow. 4. Depression: Prozac. 5. Obstructive sleep apnea, on continuous positive airway pressure: Will order continuous positive airway pressure for here. 6. History of deep vein thrombosis: This is remote. She is not on anticoagulation. 7. Restless legs syndrome: Gabapentin. 8. Deep vein thrombosis prophylaxis: Will hold pharmacologic in the setting of surgery as well as h ematoma, will hold sequential compression devices on her right leg given the hematoma. /[id number]/MODL
[2018-08-09] MEDS: CARVEDILOL 6.25 MG TAB PO SCH (17:46)
[2018-08-09] MEDS: cycloSPORINE 0.05% 30 DROPERETTE/BOX EACHEYE SCH (21:36)
[2018-08-09] MEDS: DORZOLAMIDE/TIMOLOL 10 ML OPHT.BTL EACHEYE SCH (21:36)
[2018-08-09] MEDS: TACROLIMUS 1 MG CAP PO SCH (22:19)
[2018-08-09] MEDS ORDERED: NS 1,000 ML IV SCH (23:00)
[2018-08-09] MEDS: GABAPENTIN 100 MG CAP PO SCH (23:58)
[2018-08-10 07:07] LABS: PLATELET COUNT 182 10^3/uL (150-400)
--- NOTE | 2018-08-10 07:54 | PDANEPAE ---
ANE History of Present Illness RLE I&D, wound vac ANE Past Medical History - Pulmonary History Hx Oxygen in Use at Home: No Hx Sleep Apnea: Yes Sleep Apnea Screening Result - Last Documented: Positive - Endocrine History Hx Diabetes: Yes - Renal History Hx Renal Disorders: Yes Renal History Comment: transplant - Cancer History Hx Cancer: Yes Cancer History Comment: skin - Chronic Pain History Chronic Pain: Yes (Ear ache/ Head ache) ANE Review of Systems Review of systems is: negative Review of Systems: - Exercise capacity METS (RN): 2 METS ANE Patient History - Allergies Allergies/Adverse Reactions: gluten Allergy (Verified 08/09/18 13:32) metronidazole [From Flagyl] Allergy (Verified 07/30/18 20:18) Rash sulfamethoxazole [From Bactrim] Allergy (Verified 07/30/18 20:18) Rash trimethoprim [From Bactrim] Allergy (Verified 07/30/18 20:18) Rash wheat Allergy (Verified 07/30/18 20:18) - Home Medications Home medications: home medication list seen and reviewed Home Medications: azaTHIOprine [Imuran 50 mg (*)] 50 mg PO DAILY 03/02/18 [Last Taken 08/09/18] predniSONE 5 mg PO DAILY 03/02/18 [Last Taken 08/09/18] traZODone [traZODone 150MG (*)] 150 mg PO HS 03/02/18 [Last Taken 08/08/18] Bumetanide [Bumex (*)] 1 mg PO BID 05/11/18 [Last Taken 08/09/18] C/E/Zn/Cu/OM3/DHA/EPA/LUT/ZEAX [Preservision Areds 2 Softgel] 1 each PO DAILY [Last Taken 08/09/18] Cholecalciferol (Vitamin D3) [Vitamin D3] 2,000 unit PO DAILY 05/11/18 [Last Taken 08/09/18] Tacrolimus [Prograf] 3 mg PO BID 05/11/18 [Last Taken 08/09/18] Dorzolamide/Timolol [Cosopt (*)] 1 drops EACHEYE BID 05/12/18 [Last Taken ] cycloSPORINE 0.05% [Restasis Opht Drops(*)] 1 drop EACHEYE BID 05/12/18 [Last Taken 08/09/18] Acetaminophen [Acetaminophen Extra Strength] 500 mg PO Q6H PRN 06/22/18 [Last Taken 08/09/18] Calcitriol [Calcitriol (*)] 0.25 mcg PO Q2D 08/09/18 [Last Taken 08/09/18] Carvedilol [Coreg (*)] 12.5 mg PO BIDMEAL 08/09/18 [Last Taken 08/09/18] Gabapentin [Neurontin 100 MG (*)] 100 mg PO HS 08/09/18 [Last Taken 08/08/18] Sertraline HCl [Zoloft 50mg (*)] 75 mg PO DAILY 08/09/18 [Last Taken 08/09/18] - NPO status NPO Status: no food or drink >8 hours NPO Since - Liquids (Date): 08/10/18 NPO Since - Liquids (Time): 00:00 NPO Since - Solids (Date): 08/10/18 NPO Since - Solids (Time): 00:00 - Anes Hx Anes Hx: no prior problems - Smoking Hx Smoking Status: Former smoker - Family Anes Hx Family Anes Hx: none ANE Labs/Vital Signs - Labs Result Diagrams: 08/10/18 06:53 08/10/18 06:53 - Vital Signs Vital Signs: reviewed preoperatively; see RN documention for details Blood Pressure: 119/63 Heart Rate: 94 Respiratory Rate: 16 O2 Sat (%): 91 Height: 170.18 cm Weight: 92.533 kg ANE Physical Exam - Airway Neck exam: FROM Mallampati Score: Class 1 Mouth exam: poor dentition - Pulmonary Pulmonary: no respiratory distress - Cardiovascular Cardiovascular: regular rate and rhythym - ASA Status ASA Status: III ANE Anesthesia Plan Anesthesia Plan: GA w LMA
[2018-08-10] MEDS ORDERED: BUPIVACAINE 0.5% 30 ML SDV ONE (07:59)
[2018-08-10] MEDS ORDERED: ONDANSETRON 4 MG/2 ML VIAL ONE (08:08)
[2018-08-10] MEDS ORDERED: DEXAMETHASONE 4 MG/ML VIAL ONE (08:08)
[2018-08-10] MEDS ORDERED: ceFAZolin 2 GM/DEXTROSE 100 ML IV ONE (08:08)
[2018-08-10] MEDS ORDERED: LIDOCAINE 2% 100 MG/5 ML SYR ONE (08:08)
[2018-08-10] MEDS ORDERED: PROPOFOL 200 MG/20 ML VIAL ONE (08:09)
[2018-08-10] MEDS ORDERED: CEFAZOLIN 2 GM/DEXTROSE/100 ML BAG IV ONE (08:09)
[2018-08-10] MEDS ORDERED: fentaNYL 100 MCG/2 ML INJ ONE ×2 (08:09→09:45)
[2018-08-10] MEDS ORDERED: NALOXONE HCL 0.4 MG/ML INJ IVP PRN (08:35)
[2018-08-10] MEDS ORDERED: ACETAMINOPHEN 500 MG TAB PO PRN (08:40)
[2018-08-10] MEDS ORDERED: oxyCODONE IR 5 MG TAB PO PRN (08:40)
[2018-08-10] MEDS ORDERED: DEXAMETHASONE 4 MG/ML VIAL IVP PRN (08:40)
[2018-08-10] MEDS ORDERED: HYDROCODONE/APAP 5/325 TAB PO PRN (08:40)
[2018-08-10] MEDS ORDERED: PROMETHAZINE HCL 25 MG/ML INJ IVP PRN (08:40)
[2018-08-10] MEDS ORDERED: ONDANSETRON 4 MG/2 ML VIAL IVP PRN (08:40)
[2018-08-10] MEDS ORDERED: fentaNYL 100 MCG/2 ML INJ IVP PRN (08:40)
[2018-08-10] MEDS ORDERED: MEPERIDINE 25 MG/0.5 ML AMP IVP PRN (08:40)
--- NOTE | 2018-08-10 08:45 | POSTANESTH ---
Post Anesthetic Evaluation Cardiovascular Status: Similar to Pre-Op Cond Respiratory Status: Similar to Pre-op Cond. Level of Consciousness/Mental Status: Can Participate in Eval, Moderately Sleepy Pain Control: Adequate, Prn Tx Ordered Nausea/Vomiting Control: Adequate, Prn Tx Ordered Complications Possibly Related to Anesthesia: None Noted
--- NOTE | 2018-08-10 09:38 | POSTOPPROG ---
Post Op Note Date of Operation: 08/10/18 Surgeon: Meaghan Mejia Anesthesiologist: lindsay Anesthesia: GET(General Endotracheal) Pre-op Diagnosis: RLE retained hematoma Post-op Diagnosis: same Indication: 72 yo with retained hematoma Procedure: [id number] Findings: Large hematoma to adipose Inf/Abcess present in the surg proc area at time of surgery?: Yes Depth: Superfical (Skin SQ) EBL: Minimal Specimen(s): hematoma
[2018-08-10] MEDS ORDERED: FLUCONAZOLE 150 MG TAB PO ONE (11:06)
--- NOTE | 2018-08-10 11:11 | HOSPPROG ---
Hospitalist Progress Note Assessment/Plan: 72F with a large LLE hematoma s/p debridement, now with wound vac. # hematoma s/p debridement - now has wound vac - likely needs SNF - CM involved # renal transplant, CKD - at baseline SCr, recheck tomorrow - cont imuran, pred and tacrolimus - hold bumex today, likely restart tomorrow # depr - zoloft # JOSE/CPAP # RLS - gabapentin # dvt ppx - would start if not discharging soon and ok with surgery # dispo - possibly tomorrow to SNF Subjective: s/p surgery today; c/o ongoing vaginal pain after her abx Objective: Vital Signs Temp Pulse Resp BP Pulse Ox 37.1 C 61 16 125/63 H 98 08/10/18 10:36 08/10/18 10:36 08/10/18 10:36 08/10/18 10:36 08/10/18 10:36 Laboratory Results 08/10/18 06:53 08/10/18 06:53 08/09/18 08/10/18 08/11/18 05:59 05:59 04:59 Intake Total 450 400 Output Total 10 Balance 450 390 PT 15.9 SEC (12.0-15.0) H 08/09/18 15:00 INR 1.25 (0.83-1.16) H 08/09/18 15:00 chart reviewed op note reviewed high risk post-op - Physical Exam Constitutional: no apparent distress Cardiovascular: regular rate and rhythym, no murmur, rub, or gallop Respiratory: no respiratory distress, no rales or rhonchi, clear to auscultation Gastrointestinal: soft, non-tender abdomen, no palpable masses, No guarding, No rebound, No distension ICD10 Worksheet Patient Problems: Problems Problem Status Onset Intracerebral hematoma Acute Fall Acute Abdominal wall hematoma Acute CKD (chronic kidney disease) Acute Dehydration Acute Anemia Acute Cellulitis of left leg Acute Hypoxemia Acute Fever Acute Cellulitis of right leg Acute Skin tear of right upper extremity Acute Minor head injury Acute
[2018-08-10] MEDS: CARVEDILOL 6.25 MG TAB PO SCH ×2 (11:27→17:15)
[2018-08-10] MEDS: oxyCODONE IR 5 MG TAB PO PRN ×3 (11:28→21:02)
[2018-08-10] MEDS: predniSONE 5 MG TAB PO SCH (11:28)
[2018-08-10] MEDS: CHOLECALCIFEROL VIT D3 2,000 UNITS TAB/CAP PO SCH (11:28)
[2018-08-10] MEDS: DORZOLAMIDE/TIMOLOL 10 ML OPHT.BTL EACHEYE SCH ×2 (11:32→21:57)
[2018-08-10] MEDS: cycloSPORINE 0.05% 30 DROPERETTE/BOX EACHEYE SCH ×2 (11:32→21:57)
[2018-08-10] MEDS: SERTRALINE HCL 50 MG TAB PO SCH (11:37)
[2018-08-10] MEDS: azaTHIOprine 50 MG TAB PO SCH (11:38)
[2018-08-10] MEDS: TACROLIMUS 1 MG CAP PO SCH ×2 (11:38→21:56)
--- NOTE | 2018-08-10 11:49 | PDMN ---
Medical Necessity Medical necessity: Pt meets IP criteria per & [facility] PG-WS (Wound & Skin Management); est los >2 mn for eval/tx of RLE hematoma w/significant pain s/p superficial debridement; requiring surgical debridement, pain management & therapies; hx renal transplant/CKD on chronic immunosuppression, anemia; per H& P & order 08/09/18
--- NOTE | 2018-08-10 12:55 | SOAPPROG ---
SOAP Progress Note Assessment/Plan: Assessment: POD # 0 s/p evacuation large traumatic hematoma Veraflow Will change vac on Sunday and then can likely discharge I took culture of hematoma due to odor. Do not anticipate need for antibiotics at this time Will likely need homecare with vac changes 3x per week. Expect skin graft in 4- 6 weeks/ Plan: 08/10/18 12:53 Objective: Vital Signs Temp Pulse Resp BP Pulse Ox 36.7 C 58 L 16 120/61 97 08/10/18 12:31 08/10/18 12:31 08/10/18 12:31 08/10/18 12:31 08/10/18 12:31 Laboratory Results 08/10/18 06:53 08/10/18 06:53 08/09/18 08/10/18 08/11/18 05:59 05:59 04:59 Intake Total 450 400 Output Total 10 Balance 450 390 PT 15.9 SEC (12.0-15.0) H 08/09/18 15:00 INR 1.25 (0.83-1.16) H 08/09/18 15:00 ICD10 Worksheet Patient Problems: Problems Problem Status Onset Abdominal wall hematoma Acute Anemia Acute CKD (chronic kidney disease) Acute Cellulitis of left leg Acute Cellulitis of right leg Acute Dehydration Acute Fall Acute Fever Acute Hypoxemia Acute Intracerebral hematoma Acute Minor head injury Acute Skin tear of right upper extremity Acute
--- NOTE | 2018-08-10 15:45 | ASMTCMCOM ---
CM Note CM Note Notes: Pt is in [facility], 2 weeks ago she bumped her leg on a coffee table and has not healed. She was taken to the OR and a wound vac was placed. Pt will discharge to [facility] on Sunday, Bessie at notified and they have a wound vac ready. DC Plan: [facility] Date Signed: 08/10/2018 03:44 PM Electronically Signed By:Liudmila Rush RN
[2018-08-10] MEDS: GABAPENTIN 100 MG CAP PO SCH (21:56)
--- NOTE | 2018-08-11 01:23 | GOP ---
DATE OF OPERATION: 08/10/2018 SURGEON: Meaghan Mejia MD ANESTHESIA: General. ANESTHESIOLOGIST: Sandip Odell MD. PREOPERATIVE DIAGNOSIS: Right lower extremity retained hematoma. POSTOPERATIVE DIAGNOSIS: Right lower extremity retained hematoma. PROCEDURE PERFORMED: Evacuation large hematoma, debridement of skin, soft tissue, and adipose tissue . FINDINGS: Large hematoma that went to the adipose tissue. The wound measures 18 x 14 x 1 cm. There were numerous coagulated vessels. SPECIMENS: Hematoma for microbiology. ESTIMATED BLOOD LOSS: Minimal. DESCRIPTION OF PROCEDURE: Patient was brought into the operating room, placed supine on the table, a nd general anesthesia was administered. Her right lower extremity was prepped with Betadine and drap ed in the usual sterile fashion. I used electrocautery to evacuate the large eschar over the wound. I then, used Misonix to remove the hematoma. There were multiple coagulated vessels in the adipose tissue, and I had to debride deep into the adipose tissue before I could find a healthy plane. The w ound measures 18 x 14 x 1 cm. The wound bed was healthy. Hemostasis is achieved. VeraFlo wound VAC with Vashe was placed. She was awakened in the operating room, extubated, transferred to PACU in st able condition. /[id number]/MODL
[2018-08-11] MEDS ORDERED: NS 1,000 ML IV SCH ×2 (06:00→14:45)
[2018-08-11] MEDS: oxyCODONE IR 5 MG TAB PO PRN ×4 (06:57→21:36)
[2018-08-11 07:27] LABS: PLATELET COUNT 203 10^3/uL (150-400)
--- NOTE | 2018-08-11 09:09 | SOAPPROG ---
SOAP Progress Note Assessment/Plan: Assessment: POD # 1 s/p evacuation large traumatic hematoma Veraflow Will change vac on Sunday and then can likely discharge I took culture of hematoma due to odor. Do not anticipate need for antibiotics at this time Wants to go to [facility] at discharge Expect skin graft in 4-6 weeks Can change to NS when vashe runs out S: Pain at leg but tolerable O: WV to suction Plan: 08/10/18 12:53 08/11/18 09:07 Objective: Vital Signs Temp Pulse Resp BP Pulse Ox 36.3 C 59 L 14 115/59 L 89 L 08/11/18 07:45 08/11/18 07:45 08/11/18 07:45 08/11/18 07:45 08/11/18 07:45 Microbiology 08/10/18 09:00 Gram Stain - Final Leg - Other Laboratory Results 08/11/18 04:43 08/11/18 04:41 08/10/18 08/11/18 08/12/18 06:59 05:59 05:59 Intake Total Output Total Balance PT 15.9 SEC (12.0-15.0) H 08/09/18 15:00 INR 1.25 (0.83-1.16) H 08/09/18 15:00 ICD10 Worksheet Patient Problems: Problems Problem Status Onset Abdominal wall hematoma Acute Anemia Acute CKD (chronic kidney disease) Acute Cellulitis of left leg Acute Cellulitis of right leg Acute Dehydration Acute Fall Acute Fever Acute Hypoxemia Acute Intracerebral hematoma Acute Minor head injury Acute Skin tear of right upper extremity Acute
[2018-08-11] MEDS: TACROLIMUS 1 MG CAP PO SCH ×2 (09:31→21:42)
[2018-08-11] MEDS: CALCITRIOL 0.25 MCG CAP PO SCH (09:31)
[2018-08-11] MEDS: CHOLECALCIFEROL VIT D3 2,000 UNITS TAB/CAP PO SCH (09:31)
[2018-08-11] MEDS: azaTHIOprine 50 MG TAB PO SCH (09:31)
[2018-08-11] MEDS: CARVEDILOL 6.25 MG TAB PO SCH (09:31)
[2018-08-11] MEDS: SERTRALINE HCL 50 MG TAB PO SCH (09:31)
[2018-08-11] MEDS: predniSONE 5 MG TAB PO SCH (09:31)
[2018-08-11] MEDS: cycloSPORINE 0.05% 30 DROPERETTE/BOX EACHEYE SCH ×2 (09:32→21:41)
[2018-08-11] MEDS: DORZOLAMIDE/TIMOLOL 10 ML OPHT.BTL EACHEYE SCH ×2 (09:32→21:40)
--- NOTE | 2018-08-11 09:54 | HOSPPROG ---
Hospitalist Progress Note Assessment/Plan: 72F with a large LLE hematoma s/p debridement, now with wound vac. # hematoma s/p debridement - now has wound vac - likely will need SNF tomorrow # renal transplant, CKD - slight worsening of SCr with elevated K today - cont imuran, pred and tacrolimus - recheck BMP now, then decide if we need to restart bumex # depr - zoloft # JOSE/CPAP # RLS - gabapentin # dvt ppx - will hold today given that she had a significant hematoma # dispo - hopefully tomorrow to SNF Subjective: no acute events overnight Objective: Vital Signs Temp Pulse Resp BP Pulse Ox 36.3 C 59 L 14 115/59 L 89 L 08/11/18 07:45 08/11/18 09:31 08/11/18 07:45 08/11/18 09:31 08/11/18 07:45 Microbiology 08/10/18 09:00 Gram Stain - Final Leg - Other Laboratory Results 08/11/18 04:43 08/11/18 04:41 08/10/18 08/11/18 08/12/18 06:59 05:59 05:59 Intake Total Output Total Balance PT 15.9 SEC (12.0-15.0) H 08/09/18 15:00 INR 1.25 (0.83-1.16) H 08/09/18 15:00 high risk - Physical Exam Constitutional: no apparent distress, appears nourished Cardiovascular: regular rate and rhythym, no murmur, rub, or gallop Respiratory: no respiratory distress, no rales or rhonchi, clear to auscultation Gastrointestinal: soft, non-tender abdomen, no palpable masses, No guarding, No rebound, No distension ICD10 Worksheet Patient Problems: Problems Problem Status Onset Intracerebral hematoma Acute Fall Acute Abdominal wall hematoma Acute CKD (chronic kidney disease) Acute Dehydration Acute Anemia Acute Cellulitis of left leg Acute Hypoxemia Acute Fever Acute Cellulitis of right leg Acute Skin tear of right upper extremity Acute Minor head injury Acute
[2018-08-11] MEDS ORDERED: BUMETANIDE 2 MG TAB PO ONE (14:11)
[2018-08-11] MEDS ORDERED: CARVEDILOL 6.25 MG TAB PO SCH (14:41)
[2018-08-11] MEDS ORDERED: ALTEPLASE 2 MG VIAL IVP PRN (19:22)
[2018-08-11] MEDS ORDERED: SODIUM POLY SULF 15 GM/60 ML BOTTLE PO ONE (19:29)
[2018-08-11] MEDS: GABAPENTIN 100 MG CAP PO SCH (21:42)
[2018-08-12 05:48] LABS: PLATELET COUNT 195 10^3/uL (150-400)
[2018-08-12] MEDS: oxyCODONE IR 5 MG TAB PO PRN ×2 (06:31→09:58)
[2018-08-12] MEDS: DORZOLAMIDE/TIMOLOL 10 ML OPHT.BTL EACHEYE SCH ×2 (08:39→20:41)
[2018-08-12] MEDS: TACROLIMUS 1 MG CAP PO SCH ×2 (08:40→20:41)
[2018-08-12] MEDS: SERTRALINE HCL 50 MG TAB PO SCH (08:41)
[2018-08-12] MEDS: ACETAMINOPHEN 325 MG TAB PO PRN ×2 (08:42→14:40)
[2018-08-12] MEDS: azaTHIOprine 50 MG TAB PO SCH (08:43)
[2018-08-12] MEDS: CHOLECALCIFEROL VIT D3 2,000 UNITS TAB/CAP PO SCH (08:43)
[2018-08-12] MEDS: predniSONE 5 MG TAB PO SCH (08:43)
[2018-08-12] MEDS: cycloSPORINE 0.05% 30 DROPERETTE/BOX EACHEYE SCH ×3 (08:46→21:06)
--- NOTE | 2018-08-12 08:52 | WOCRNPDOC ---
WOCRN Advanced Assessment Note - Skin Integrity Problem, Advanced Assess Right Lower Lateral Leg Surgical Wound/Incision Dressing Type: Black Vac Foam (casey foam x2 (cleanse choice)), Wound Vac Dressing Description: Clean/Dry, Intact Exudate Amount: Minimal Exudate Characteristic(s): Serosanguinous Integumentary Issue Intervention: Dressing Changed Sharon Wound Tissue: Erythema, Painful/Tender Sharon Wound Swelling: Moderate Wound Bed Color: Red, Yellow Wound Bed Constitution: Red/[place] - Non Granular Tissue (70%), Adhered Slough (30 %) Skin Integrity Problem Comment: Changed vac with Mark RICO. x2 pieces of medium simplace black foam to wound bed. Sharon wound hair clipped and draped. Vac restarted at -125 mm Hg continuous suction. No leaks. Vac change was quite painful for patient despite pain medication.
--- NOTE | 2018-08-12 09:15 | SOAPPROG ---
SOAP Progress Note Assessment/Plan: Assessment/Plan: 72yo F POD#2 s/p debridement skin/soft tissue and evacuation large RLE traumatic hematoma Veraflo vac changed this am to traditional vac Plan for skin graft in 4-6 weeks. Prelim culture enterobacter - no antibiotics at this time Appreciate hospitalists Dispo: DC to [facility], vac change MWF. FU 10 days S: Pain with vac change O: Lying in bed, comfortable, NAD No increased WOB RLE edema 1+ Min surrounding erythema Tender to palpation around periwound edges Wound bed with healthy granulation. No active bleeding. Objective: Vital Signs Temp Pulse Resp BP Pulse Ox 36.8 C 58 L 18 116/57 L 89 L 08/12/18 08:00 08/12/18 08:00 08/12/18 08:00 08/12/18 08:00 08/12/18 08:00 Microbiology 08/10/18 09:00 Gram Stain - Final Leg - Other Laboratory Results 08/12/18 04:17 08/12/18 04:17 08/11/18 08/12/18 08/13/18 05:59 05:59 05:59 Intake Total 2680 Output Total Balance 2680 PT 15.9 SEC (12.0-15.0) H 08/09/18 15:00 INR 1.25 (0.83-1.16) H 08/09/18 15:00 ICD10 Worksheet Patient Problems: Problems Problem Status Onset Abdominal wall hematoma Acute Anemia Acute CKD (chronic kidney disease) Acute Cellulitis of left leg Acute Cellulitis of right leg Acute Dehydration Acute Fall Acute Fever Acute Hypoxemia Acute Intracerebral hematoma Acute Minor head injury Acute Skin tear of right upper extremity Acute
--- NOTE | 2018-08-12 10:03 | HOSPPROG ---
Hospitalist Progress Note Assessment/Plan: 72F with a large LLE hematoma s/p debridement, now with wound vac. # hematoma s/p debridement - now has wound vac - wound culture with enterobacter - plan short course of abx, currently on rocephin, change to PO abx on dc # renal transplant, CKD - had worsening renal function, now improving - worsening renal function d/t relative hypotension - improved after holding bumex, coreg and starting NS - stop NS this afternoon, recheck function tomorrow - cont imuran, pred and tacrolimus # depr - zoloft # JOSE/CPAP # RLS - gabapentin # dvt ppx - continue to hold for now # dispo - hopefully tomorrow to SNF; would dc if renal function stable; need plan for restarting coreg and bumex at some point based Subjective: s/p wound vac change today - c/o pain at the site Objective: Vital Signs Temp Pulse Resp BP Pulse Ox 36.8 C 58 L 18 116/57 L 89 L 08/12/18 08:00 08/12/18 08:00 08/12/18 08:00 08/12/18 08:00 08/12/18 08:00 Microbiology 08/10/18 09:00 Gram Stain - Final Leg - Other Laboratory Results 08/12/18 04:17 08/12/18 04:17 08/11/18 08/12/18 08/13/18 05:59 05:59 05:59 Intake Total 2680 Output Total Balance 2680 PT 15.9 SEC (12.0-15.0) H 08/09/18 15:00 INR 1.25 (0.83-1.16) H 08/09/18 15:00 high risk - Physical Exam Constitutional: no apparent distress, appears nourished Cardiovascular: regular rate and rhythym, no murmur, rub, or gallop Respiratory: no respiratory distress, no rales or rhonchi Gastrointestinal: soft, non-tender abdomen, no palpable masses, No guarding, No rebound, No distension ICD10 Worksheet Patient Problems: Problems Problem Status Onset Intracerebral hematoma Acute Fall Acute Abdominal wall hematoma Acute CKD (chronic kidney disease) Acute Dehydration Acute Anemia Acute Cellulitis of left leg Acute Hypoxemia Acute Fever Acute Cellulitis of right leg Acute Skin tear of right upper extremity Acute Minor head injury Acute
[2018-08-12] MEDS ORDERED: BUMETANIDE 1 MG TAB PO ONE (14:21)
[2018-08-12] MEDS: GABAPENTIN 100 MG CAP PO SCH (20:41)
[2018-08-13] MEDS: ACETAMINOPHEN 325 MG TAB PO PRN ×2 (00:31→12:09)
[2018-08-13 05:53] LABS: PLATELET COUNT 197 10^3/uL (150-400)
[2018-08-13] MEDS: TACROLIMUS 1 MG CAP PO SCH ×2 (08:54→21:58)
[2018-08-13] MEDS: oxyCODONE IR 5 MG TAB PO PRN ×3 (08:54→22:41)
[2018-08-13] MEDS: azaTHIOprine 50 MG TAB PO SCH (08:55)
[2018-08-13] MEDS: SERTRALINE HCL 50 MG TAB PO SCH (08:55)
[2018-08-13] MEDS: CHOLECALCIFEROL VIT D3 2,000 UNITS TAB/CAP PO SCH (08:56)
[2018-08-13] MEDS: DORZOLAMIDE/TIMOLOL 10 ML OPHT.BTL EACHEYE SCH ×2 (08:56→21:59)
[2018-08-13] MEDS: predniSONE 5 MG TAB PO SCH (08:56)
[2018-08-13] MEDS: CALCITRIOL 0.25 MCG CAP PO SCH (08:56)
[2018-08-13] MEDS: cycloSPORINE 0.05% 30 DROPERETTE/BOX EACHEYE SCH ×2 (08:57→21:59)
--- NOTE | 2018-08-13 10:23 | ASMTCMCOM ---
CM Note CM Note Notes: CM spoke to Dr. Ngo about d/c POC. Pt spiked a fever last night. Pt's kidney functioning is high. Renal has been consulted. CM provided updates to Lian at [facility] and to [facility]. CM to follow. Plan: [facility] Date Signed: 08/13/2018 10:22 AM Electronically Signed By:SAULO Wang
--- NOTE | 2018-08-13 12:06 | GCON ---
NEPHROLOGY CONSULTATION DATE OF CONSULTATION: 08/13/2018 REASON FOR CONSULTATION: Renal transplant, cellulitis, elevated creatinine. HISTORY OF PRESENT ILLNESS: The patient is known to our service from a previous admission in May. She is a pleasant 72-year-old female with a past medical history significant for end-stage renal di sease secondary to hypertension and obesity, status post renal transplant in 2016 at the [facility]. She has had a reasonable posttransplant course in relation to her allograft. Her b aseline creatinine has appeared to be approximately 1.5. The patient now is admitted with a right lo wer extremity soft tissue wound and cellulitis. The patient developed end-stage renal disease and was on dialysis for 6 years in [place], [place]. She initially started with peritoneal dialysis, but was not able to maintain this. She then went to hemodialysis, and was ultimately transplanted in [address] [facility]. She was i nitially treated with CellCept, but did not tolerate this due to gastrointestinal side effects. She has since been maintained on prednisone, azathioprine, and tacrolimus. The tacrolimus level approxim ately 10 days ago was 5.7. The patient moved to [place] approximately 2 years ago to be near family . She has seen Dr. Storm of [facility]. The [facility]. At this point, following bum ping her leg on a coffee table, she developed a right lower extremity soft tissue wound that required debridement. Dr. Mejia has been following her from a surgical standpoint. She has undergone debrid ement, and now has a wound VAC in place. Cultures were obtained, but antibiotics have not been admin istered. The patient ultimately thought to need a skin graft. In reviewing her creatinine levels, they had been running approximately 1.5. Since admission, it has ranged between 1.6 and 1.8. She has had a mild acidosis. She had some hyperkalemia early on in the admission, but her current potassium level is normal. Her white blood cell count is normal. She wells s a macrocytic anemia. Overall, the patient states she is doing okay. Her appetite is stable. She has had some loose stool s. She has received some IV fluids. Her I's and O's marker as being net positive for this admission , but her weight is down from admission. A fractional excretion of sodium has been obtained, which w as low. The remainder of her urinalysis appears okay. As relating to these above issues, we are ask ed by Dr. Ngo to assist the patient's renal diagnosis and management. PAST MEDICAL HISTORY: 1. End-stage renal disease secondary to hypertension and obesity. 2. Status post renal transplant, February 19, 2016, at the [facility]. 3. History of chronic diarrhea and possible lactose intolerance. 4. Obesity, status post gastric bypass. 5. Obstructive sleep apnea, on CPAP. 6. Hypertension. 7. Incontinence. 8. Recurrent urinary tract infections. 9. Secondary hyperparathyroidism. 10. Depression. 11. Past tobacco use. 12. Glaucoma. 13. Cataracts. 14. Skin cancers. 15. Recurrent cellulitis episodes. SURGICAL HISTORY: Includes: 1. Hemodialysis fistula. 2. Peritoneal dialysis catheter placement and removal. 3. Bariatric surgery. 4. Renal transplant. 5. Bilateral knee arthroplasties. 6. Hysterectomy. 7. Appendectomy. CURRENT MEDICATIONS: Tylenol p.r.n. pain, Activase p.r.n., azathioprine 50 mg daily, calcitriol 0.25 mcg every other day, carvedilol 6.25 mg b.i.d., ceftriaxone daily, vitamin D daily, cyclosporine eye drops b.i.d., Cosopt b.i.d., gabapentin 100 q.h.s., oxycodone p.r.n., prednisone 5 mg daily, Zoloft 75 mg daily, Prograf 3 mg b.i.d., trazodone 150 mg q.h.s. FAMILY HISTORY: Noncontributory. SOCIAL HISTORY: The patient lives here to be near her son who lives near [facility]. She lives in [facility]. She has a past tobacco history. She does not drink alcohol. REVIEW OF SYSTEMS: General the patient has had some chills. She has had a chronic left posterior oc cipital headache. She does have macular degeneration and glaucoma and, with this, she has some decre ased vision. She is having a mild sore throat. She denies rhinitis. She denies cough or shortness of breath. She denies chest pain or palpitations. She is not having abdominal pain. She is having some loose stools. She denies dysuria. She has chronic lower extremity edema. She has had the recu rrent episodes of lower extremity cellulitis. She denies symptoms of neuropathy or focal neurologic findings. She denies skin rashes, but has the aforementioned cellulitis episodes. She does not have a history of diabetes or thyroid disease. PHYSICAL EXAM: GENERAL: At time of exam, the patient is alert and oriented. VITAL SIGNS: Temperat ure 36.9, pulse 71, blood pressure 137/64. EYES: Sclerae clear. OROPHARYNX: The patient's throat is slightly injected. NECK: No lymphadenopathy or thyromegaly. LUNGS: Clear to auscultation bilat erally. CARDIOVASCULAR: Regular rate and rhythm. A systolic murmur is noted at the left lower ster nal border. ABDOMEN: Obese. Normoactive bowel sounds. Nontender. No organomegaly. AND RECTAL : Deferred. EXTREMITIES: 1+ ankle edema is noted. The patient does have a wound VAC applied to he r right luna area. NEURO: The patient has no focal findings except for her headache. LABORATORY STUDIES: Sodium 142, potassium 4.7, bicarb 20, creatinine 1.7. White count 6.8, hematocr it 28.9, platelet count 197. Spot urine sodium is 34; spot urine creatinine is 113. Urinalysis is o therwise negative. IMPRESSION AND PLAN: 1. Acute kidney injury and chronic kidney disease and a renal allograft. The patient's creatinine i s slightly increased. Her urinalysis appears relatively unremarkable, and she does have a slightly l ow fractional excretion of sodium. Her systemic blood pressures appear okay. Her ins and outs do no t show her to be net negative, but she is having some loose stools. A recent tacrolimus level was in range. 2. I do not see that the patient has received nephrotoxins. Her volume status appears fairly euvole chary at present. There is no evidence of interstitial nephritis at the moment. For now, we will foll ow conservatively and monitor. I will request a bladder scan to make sure she is emptying her bladde r adequately. I do believe we should see some improvement in her creatinine once her acute illness i mproves. Given her lower extremity cellulitis has worsened with edema, I will not place her on any I V fluids at the present time. She does appear to be eating and drinking normally. 3. Anemia. We will continue to monitor this. 4. Sleep apnea. The patient should be maintained on her continuous positive airway pressure therapy as per home. 5. Hypertension. Her blood pressure appears well controlled. 6. Cellulitis. The patient appears to be responding to her debridement and antibiotics. DISPOSITION: The patient will likely go to a SNF for a period of time. Thank you for allowing us to participate in this lady's care. I will continue following closely with you. /[id number]/MODL
--- NOTE | 2018-08-13 12:24 | CPEKG ---
Test Reason : OPEN Blood Pressure : / mmHG Vent. Rate : 062 BPM Atrial Rate : 062 BPM P-R Int : 174 ms QRS Dur : 090 ms QT Int : 428 ms P-R-T Axes : 057 014 054 degrees QTc Int : 435 ms Sinus rhythm Atrial premature complex Anteroseptal infarct, age indeterminate Confirmed by Everardo Espinoza ([id number]) on 08/13/2018 12:23:46 PM Referred By: Confirmed By:Everardo Espinoza
[2018-08-13] MEDS: SODIUM BICARBONATE 650 MG TAB PO SCH ×2 (13:26→21:58)
--- NOTE | 2018-08-13 14:37 | HOSPPROG ---
Hospitalist Progress Note Assessment/Plan: 72F with renal transplant on immunosuppression who developed LLE hematoma and wound after bumping leg on coffee table. # Fever: x1 last night. Not septic/toxic appearing. - UA/CXR negative, blood cultures pending - Suspect cellulitis as source. Wound cx with enterobacter. Started on CTX yesterday # IRMA on CKD: in setting of renal transplant, UA unremarkable, likely r/t dehydration - renal consulted, check PVR, encourage PO intake - cont imuran, pred, tac (recent level wnl) # LLE hematoma s/p debridement - now has wound vac # depr - zoloft # JOSE/CPAP # RLS - gabapentin # dvt ppx - continue to hold for now # dispo - remain inpatient with fever, uptrending Cr. hopefully dc tomorrow to SNF if renal function stable; need plan for restarting coreg and bumex at some point Subjective: Had fever overnight. Also felt a bit confused at one point but this has resolved. Denies sob, n/v/d. Leg pain ok. Objective: Vital Signs Temp Pulse Resp BP Pulse Ox 36.9 C 71 16 137/64 H 91 L 08/13/18 08:00 08/13/18 08:00 08/13/18 08:00 08/13/18 08:00 08/13/18 08:00 Microbiology 08/10/18 09:00 Gram Stain - Final Leg - Other Laboratory Results 08/13/18 04:46 08/13/18 04:46 08/12/18 08/13/18 08/14/18 05:59 05:59 05:59 Intake Total 2680 0 Output Total 600 400 Balance 2680 -600 -400 PT 15.9 SEC (12.0-15.0) H 08/09/18 15:00 INR 1.25 (0.83-1.16) H 08/09/18 15:00 - Physical Exam Constitutional: no apparent distress, appears nourished, not in pain Eyes: PERRL, anicteric sclera, EOMI Ears, Nose, Mouth, Throat: moist mucous membranes, hearing normal, ears appear normal, no oral mucosal ulcers Cardiovascular: regular rate and rhythym, no murmur, rub, or gallop Respiratory: no respiratory distress, no rales or rhonchi, clear to auscultation Gastrointestinal: normoactive bowel sounds, soft, non-tender abdomen, no palpable masses Genitourinary: no bladder fullness, no bladder tenderness, no renal bruits Skin: other (LLE wound vac in place, some erythema extending medially on lower leg) Musculoskeletal: full muscle strength, no muscle tenderness, normal joint ROM Neurologic: AAOx3, sensation intact bilaterally Psychiatric: interacting appropriately, not anxious, not encephalopathic, thought process linear ICD10 Worksheet Patient Problems: Problems Problem Status Onset Abdominal wall hematoma Acute Anemia Acute CKD (chronic kidney disease) Acute Cellulitis of left leg Acute Cellulitis of right leg Acute Dehydration Acute Fall Acute Fever Acute Hypoxemia Acute Intracerebral hematoma Acute Minor head injury Acute Skin tear of right upper extremity Acute
[2018-08-13] MEDS ORDERED: MAGNESIUM HYDROXIDE 30 ML UDCUP PO PRN (19:42)
[2018-08-13] MEDS ORDERED: LACTULOSE 20 GM/30 ML UDCUP PO PRN (19:42)
[2018-08-13] MEDS ORDERED: POLYETHYLENE GLYCOL 3350 17 GM PKT PO PRN (19:42)
[2018-08-13] MEDS ORDERED: BISACODYL 10 MG SUPP PR PRN (19:42)
[2018-08-13] MEDS: SENNOSIDES/DOCUSATE SODIUM TAB PO SCH (21:58)
[2018-08-13] MEDS: GABAPENTIN 100 MG CAP PO SCH (21:58)
--- NOTE | 2018-08-14 07:47 | SOAPPROG ---
SOAP Progress Note Assessment/Plan: Assessment: IRMA, creat near baseline kidney transplant, baseline creat about 1.5, creat yesterday 1.7 Anemia, following immunosuppression, tacro, pred, imuran infected R leg, wound vac in place, rocephin Plan: continue abx continue immunosuppression continue wound care possible transfer to rehab for continued care will need outpatient renal follow up when wound issues addressed 08/14/18 07:44 Subjective: slept well no cp sob nausea or vomiting voiding OK not very active spirits good appetite OK Objective: Vital Signs Temp Pulse Resp BP Pulse Ox 36.9 C 64 17 132/60 H 94 08/14/18 05:24 08/14/18 05:24 08/14/18 05:24 08/14/18 05:24 08/14/18 05:24 Microbiology 08/10/18 09:00 Gram Stain - Final Leg - Other Laboratory Results 08/13/18 04:46 08/13/18 04:46 08/13/18 08/14/18 08/15/18 05:59 05:59 05:59 Intake Total 0 1250 Output Total 600 910 Balance -600 340 PT 15.9 SEC (12.0-15.0) H 08/09/18 15:00 INR 1.25 (0.83-1.16) H 08/09/18 15:00 Physical Exam - Physical Exam General Appearance: alert, obese Respiratory: No rhonchi, No wheezing, No pleural rub Abdomen: normal bowel sounds, non-tender, soft, other (allograft RLQ, NT, no bruit) Skin: other (wound vac in place RLE) Neuro/Psych: alert, normal mood/affect, oriented x 3 ICD10 Worksheet Patient Problems: Problems Problem Status Onset Abdominal wall hematoma Acute Anemia Acute CKD (chronic kidney disease) Acute Cellulitis of left leg Acute Cellulitis of right leg Acute Dehydration Acute Fall Acute Fever Acute Hypoxemia Acute Intracerebral hematoma Acute Minor head injury Acute Skin tear of right upper extremity Acute
[2018-08-14] MEDS: SENNOSIDES/DOCUSATE SODIUM TAB PO SCH ×2 (08:43→21:23)
[2018-08-14] MEDS: TACROLIMUS 1 MG CAP PO SCH ×2 (08:43→21:24)
[2018-08-14] MEDS: oxyCODONE IR 5 MG TAB PO PRN ×3 (08:44→20:08)
[2018-08-14] MEDS: SERTRALINE HCL 50 MG TAB PO SCH (08:44)
[2018-08-14] MEDS: azaTHIOprine 50 MG TAB PO SCH (08:45)
[2018-08-14] MEDS: predniSONE 5 MG TAB PO SCH (08:45)
[2018-08-14] MEDS: CHOLECALCIFEROL VIT D3 2,000 UNITS TAB/CAP PO SCH (08:45)
[2018-08-14] MEDS: SODIUM BICARBONATE 650 MG TAB PO SCH ×2 (08:45→21:24)
--- NOTE | 2018-08-14 09:10 | SOAPPROG ---
SOAP Progress Note Assessment/Plan: Assessment/Plan: 72yo F POD#4 s/p debridement skin/soft tissue and evacuation large RLE traumatic hematoma Veraflo reapplied Plan for skin graft in 4-6 weeks. Culture - enterobacter, MRSA - will adjust abx to cover MRSA. Will consult ID Appreciate hospitalists, nephrology [facility] MWF S: Pain with vac change O: Lying in bed, comfortable, NAD No increased WOB RLE edema 1+ Erythema slightly increased compared to yesterday Tender to palpation around periwound edges Wound bed with healthy granulation. No active bleeding. Objective: Vital Signs Temp Pulse Resp BP Pulse Ox 36.9 C 59 L 18 130/63 H 94 08/14/18 08:00 08/14/18 08:00 08/14/18 08:00 08/14/18 08:00 08/14/18 08:00 Microbiology 08/10/18 09:00 Gram Stain - Final Leg - Other Laboratory Results 08/13/18 04:46 08/13/18 04:46 08/13/18 08/14/18 08/15/18 05:59 05:59 05:59 Intake Total 0 1250 Output Total 600 910 Balance -600 340 PT 15.9 SEC (12.0-15.0) H 08/09/18 15:00 INR 1.25 (0.83-1.16) H 08/09/18 15:00 ICD10 Worksheet Patient Problems: Problems Problem Status Onset Abdominal wall hematoma Acute Anemia Acute CKD (chronic kidney disease) Acute Cellulitis of left leg Acute Cellulitis of right leg Acute Dehydration Acute Fall Acute Fever Acute Hypoxemia Acute Intracerebral hematoma Acute Minor head injury Acute Skin tear of right upper extremity Acute
[2018-08-14] MEDS ORDERED: HYDROmorphONE/DILAUDID 2 MG/ML INJ ONE (09:41)
[2018-08-14] MEDS ORDERED: LIDOCAINE HCL 4% TOPICAL SOLN 50ML TP PRN (09:44)
[2018-08-14] MEDS ORDERED: HYDROmorphONE/DILAUDID 1 MG/ML INJ IVP ONE (09:44)
[2018-08-14] MEDS: DORZOLAMIDE/TIMOLOL 10 ML OPHT.BTL EACHEYE SCH ×2 (09:46→21:26)
[2018-08-14] MEDS: cycloSPORINE 0.05% 30 DROPERETTE/BOX EACHEYE SCH ×2 (09:46→21:23)
[2018-08-14] MEDS ORDERED: HYDROmorphONE/DILAUDID 2 MG/ML INJ IVP ONE (10:00)
--- NOTE | 2018-08-14 10:40 | WOCRNPDOC ---
WOCRN Advanced Assessment Note - Skin Integrity Problem, Advanced Assess Right Lower Lateral Leg Surgical Wound/Incision Dressing Type: Black Vac Foam (x2), Wound Vac Dressing Description: Clean/Dry, Intact Exudate Amount: Minimal Exudate Characteristic(s): Serosanguinous Integumentary Issue Intervention: Dressing Changed Sharon Wound Tissue: Erythema, Hot, Painful/Tender Wound Bed Constitution: Granulation Tissue, Red/[place] - Non Granular Tissue, Loose Slough (30%) Wound Edges: Attached Site Measurement - Head-to-Toe Length X Width X Depth (cm): 14.5x14.5x0.3 Skin Integrity Problem Comment: Cleaned with ns and gauze. Initial dressing removal was paused due to extensive pain during foam removal. 4% liquid lidocaine to wound bed which helped. x2 pieces of casey perforated cleanse choice foam to bed covered by x2 thin choice foam. Vashe instillation of 85 ml q3 hours for a dwell time of 6 min initiated.
--- NOTE | 2018-08-14 16:45 | HOSPPROG ---
Hospitalist Progress Note Assessment/Plan: 72F with renal transplant on immunosuppression who developed LLE hematoma and wound after bumping leg on coffee table. # LLE hematoma s/p debridement now with surrounding cellulitis - Wound vac in place - Wound cx (intra-op) with Enterobacter and now MRSA and rare Bacillus cereus - Consult ID for help with antibiotic management - Continue ceftriaxone 1g IV daily - Appreciate ID help re: abx coverage for MRSA given her renal history. Favoring dapto over vanco - No indication for imaging at present # Fever: Overnight 08/12. Not septic/toxic appearing. Suspect wound/skin source. - Abx as above, follow blood cultures/wound/fever curve # IRMA on CKD: in setting of renal transplant, UA unremarkable, likely r/t dehydration. Cr at baseline 1.5 today. - renal consulted, suspect related to fluid shifts with surgery, encourage PO intake - cont imuran, pred, tac (recent level wnl) - hold bumex, coreg # Left foot pain: at arch of foot, c/w muscle strain vs plantar fasciitis; no concern for DVT - supportive care # depr - zoloft # JOSE/CPAP # RLS - gabapentin # dvt ppx - continue to hold for now # dispo - remain inpatient for management of infection with IV antibiotics, wound vac, close monitoring of renal function. hopefully dc in coming days, need plan for restarting coreg and bumex at some point Subjective: Had lots of pain in left foot when trying to work with therapy. Also ongoing pain at right leg wound. No fevers. No dyspnea. Frustrated that she 's still here. Objective: Vital Signs Temp Pulse Resp BP Pulse Ox 36.9 C 59 L 18 130/63 H 94 08/14/18 08:00 08/14/18 08:00 08/14/18 08:00 08/14/18 08:00 08/14/18 08:00 Microbiology 08/10/18 09:00 Gram Stain - Final Leg - Other Laboratory Results 08/13/18 04:46 08/14/18 12:03 08/13/18 08/14/18 08/15/18 05:59 05:59 05:59 Intake Total 0 1250 Output Total 600 910 Balance -600 340 PT 15.9 SEC (12.0-15.0) H 08/09/18 15:00 INR 1.25 (0.83-1.16) H 08/09/18 15:00 - Physical Exam Constitutional: no apparent distress, appears nourished, not in pain Eyes: PERRL, anicteric sclera, EOMI Ears, Nose, Mouth, Throat: moist mucous membranes, hearing normal, ears appear normal, no oral mucosal ulcers Cardiovascular: regular rate and rhythym, no murmur, rub, or gallop, edema (RLE) Respiratory: no respiratory distress, no rales or rhonchi, clear to auscultation Gastrointestinal: normoactive bowel sounds, soft, non-tender abdomen, no palpable masses Genitourinary: no bladder fullness, no bladder tenderness, no renal bruits Skin: other (wound vac on RLE with surrounding erythema that is stable) Musculoskeletal: full muscle strength, no muscle tenderness, normal joint ROM, other (exquisite tenderness at arch of left foot) Neurologic: AAOx3, sensation intact bilaterally Psychiatric: interacting appropriately, not anxious, not encephalopathic, thought process linear ICD10 Worksheet Patient Problems: Problems Problem Status Onset Abdominal wall hematoma Acute Anemia Acute CKD (chronic kidney disease) Acute Cellulitis of left leg Acute Cellulitis of right leg Acute Dehydration Acute Fall Acute Fever Acute Hypoxemia Acute Intracerebral hematoma Acute Minor head injury Acute Skin tear of right upper extremity Acute
[2018-08-14] MEDS ORDERED: DAPTOmycin 550 MG in NS 100 ML IV SCH (17:30)
[2018-08-14] MEDS: ERTAPENEM 0.5 GM in NS 50 ML IV SCH (17:56)
--- NOTE | 2018-08-14 20:09 | PCMIDPN ---
Assessment/Plan: Assessment/Plan: * Right lower extremity cellulitis associated with infected hematoma status post incision and drainage: Cultures from hematoma are polymicrobial including growth of Enterobacter, MRSA, and Bacillus cereus. Significance of bacillus is unclear. Given underlying renal insufficiency and prior transplantation, will utilize daptomycin for therapy targeting MRSA. Will change ceftriaxone to ertapenem as enterobacter has capacity to produce inducible beta lactamase in the setting of beta-lactam exposure. Will follow clinical response to above measures. Daptomycin and ertapenem both dose adjusted for underlying renal insufficiency. Will check baseline CPK with use of daptomycin. * History of C difficile: Patient describes last episode over summer. During my prior visit with patient in May, she described severe illness 2 years previous. Will provide oral vancomycin 125 mg twice daily for suppressive therapy in the setting of broad-spectrum antibiotic use. * History of ESBL producing Klebsiella pneumoniae Time spent, greater than 35 min, of which greater than half was spent in education/counseling/coordination of care related to right lower extremity cellulitis associated with infected hematoma including plan of care and antibiotic management. 08/14/18 20:05 08/14/18 20:13 Subjective: Asked to see patient in consultation by Dr. Mejia for right lower extremity cellulitis associated with infected hematoma which has been drained/debrided. Patient initially injured right lower extremity when cane fell onto leg and subsequently she bumped her leg on a bathtub. She developed a large hematoma which required debridement on 08/10/2018. Hematoma was noted to have malodor prompting cultures. Gram stain showed gram-negative rods and cultures have grown Enterobacter cloacae, Bacillus cereus group and MRSA. Patient complains of pain along right lower extremity. No active diarrhea. Wound VAC management is being utilized for patient's right lower extremity wound. Patient known to me from prior care in May at which point in time she had E coli bacteremia associated with urinary etiology. Patient also has undergone prior renal transplantation. She also complains of left foot pain which is new and has hampered ability to bear weight. Past medical/past surgical/medications/allergies/social history: All reviewed from my prior consultation in May. Objective: Vital Signs Temp Pulse Resp BP Pulse Ox 36.8 C 63 18 149/56 H 91 L 08/14/18 16:00 08/14/18 16:00 08/14/18 16:00 08/14/18 16:00 08/14/18 16:00 Microbiology 08/10/18 09:00 Gram Stain - Final Leg - Other Laboratory Results 08/13/18 04:46 08/14/18 12:03 08/13/18 08/14/18 08/15/18 05:59 05:59 05:59 Intake Total 0 1250 Output Total 600 910 500 Balance -600 340 -500 Ceftriaxone # 3 Blood cultures x2 pending Microbiology 08/10/18 09:00 Leg - Other Gram Stain - Final 08/10/18 09:00 Leg - Other Anaerobic Culture - Preliminary Enterobacter Cloacae Bacillus Cereus Group MRSA - Physical Exam General Appearance: alert, no apparent distress, non-toxic EENT: No scleral icterus, No thrush, No conjunctival petechiae Respiratory: lungs clear, No respiratory distress Cardiac/Chest: regular rate, rhythm Extremities: inflammation (Right lower extremity with erythema extending below wound VAC and medially with warmth and tenderness; this does not extend over posterior calf; wound VAC in place; left foot with exquisite tenderness over dorsum and with range of motion of ankle) Abdomen: non-tender, No distended Skin: rash (Scattered ecchymoses present) Neuro/Psych: No confused ICD10 Worksheet Patient Problems: Problems Problem Status Onset Abdominal wall hematoma Acute Anemia Acute CKD (chronic kidney disease) Acute Cellulitis of left leg Acute Cellulitis of right leg Acute Dehydration Acute Fall Acute Fever Acute Hypoxemia Acute Intracerebral hematoma Acute Minor head injury Acute Skin tear of right upper extremity Acute
[2018-08-14] MEDS: VANCOMYCIN 125 MG/2.5 ML UDL PO SCH (21:25)
[2018-08-14] MEDS: GABAPENTIN 100 MG CAP PO SCH (21:25)
[2018-08-14 21:33] LABS: CREATINE KINASE 24 IU/L (0-156)
[2018-08-15] MEDS: oxyCODONE IR 5 MG TAB PO PRN ×2 (05:28→09:48)
--- NOTE | 2018-08-15 09:12 | SOAPPROG ---
SOAP Progress Note Assessment/Plan: Assessment: IRMA, creat near baseline kidney transplant, baseline creat about 1.5, creat 1.5 yesterday Anemia, following immunosuppression, tacro, pred, imuran infected R leg, wound vac in place, ABX changed to Dapto and Ertapenem with PO Vanco for C-diff prophylaxis Plan: continue abx continue immunosuppression continue wound care possible transfer to rehab for continued care will need outpatient renal follow up when wound issues addressed 08/14/18 07:44 08/15/18 09:15 Subjective: tired feels about the same no cp or SOB not eating much energy poor leg is sore not getting up and around Objective: Vital Signs Temp Pulse Resp BP Pulse Ox 37.1 C 64 16 119/55 L 88 L 08/15/18 08:00 08/15/18 08:00 08/15/18 08:00 08/15/18 08:00 08/15/18 08:00 Microbiology 08/10/18 09:00 Gram Stain - Final Leg - Other Laboratory Results 08/13/18 04:46 08/14/18 12:03 08/14/18 08/15/18 08/16/18 05:59 05:59 05:59 Intake Total 1250 Output Total 910 1100 Balance 340 -1100 PT 15.9 SEC (12.0-15.0) H 08/09/18 15:00 INR 1.25 (0.83-1.16) H 08/09/18 15:00 Physical Exam - Physical Exam General Appearance: alert, other (affect flat) Neck: normal inspection Respiratory: No rales, No wheezing, No pleural rub Cardiac/Chest: regular rate, rhythm, edema, No friction rub Abdomen: normal bowel sounds, non-tender, soft, other (allograft RLQ nt, no bruit) Skin: warm/dry, other (VAC in place RLE) Neuro/Psych: alert, oriented x 3, depressed affect ICD10 Worksheet Patient Problems: Problems Problem Status Onset Abdominal wall hematoma Acute Anemia Acute CKD (chronic kidney disease) Acute Cellulitis of left leg Acute Cellulitis of right leg Acute Dehydration Acute Fall Acute Fever Acute Hypoxemia Acute Intracerebral hematoma Acute Minor head injury Acute Skin tear of right upper extremity Acute
[2018-08-15] MEDS: SODIUM BICARBONATE 650 MG TAB PO SCH ×2 (09:48→21:46)
[2018-08-15] MEDS: SENNOSIDES/DOCUSATE SODIUM TAB PO SCH ×2 (09:48→21:45)
[2018-08-15] MEDS: TACROLIMUS 1 MG CAP PO SCH ×2 (09:48→21:46)
[2018-08-15] MEDS: azaTHIOprine 50 MG TAB PO SCH (09:48)
[2018-08-15] MEDS: SERTRALINE HCL 50 MG TAB PO SCH (09:49)
[2018-08-15] MEDS: predniSONE 5 MG TAB PO SCH (09:49)
[2018-08-15] MEDS: CHOLECALCIFEROL VIT D3 2,000 UNITS TAB/CAP PO SCH (09:49)
[2018-08-15] MEDS: CALCITRIOL 0.25 MCG CAP PO SCH (09:51)
[2018-08-15] MEDS: DORZOLAMIDE/TIMOLOL 10 ML OPHT.BTL EACHEYE SCH ×2 (09:52→21:49)
[2018-08-15] MEDS: cycloSPORINE 0.05% 30 DROPERETTE/BOX EACHEYE SCH ×2 (09:52→21:49)
[2018-08-15] MEDS: VANCOMYCIN 125 MG/2.5 ML UDL PO SCH ×2 (09:53→21:47)
[2018-08-15] MEDS: ERTAPENEM 0.5 GM in NS 50 ML IV SCH (09:53)
--- NOTE | 2018-08-15 10:19 | PCMIDPN ---
Assessment/Plan: 1. Right lower extremity cellulitis with polymicrobial infected hematoma status post debridement with VAC placement: Surrounding soft tissues are still extremely tender. This is my 1st day seeing her; hopefully will not require additional debridement. Continue antibiotics in the form of daptomycin and ertapenem, both dose adjusted for renal insufficiency, but will repeat serum creatinine today, along with liver function tests. 2. Left foot pain: The patient has some subtle erythema on the dorsum of her left great toe with no swelling. Agree that this could be sales representative health insurance of a crystalline arthropathy. Given increased risk of hyperuricemic gout particularly in renal transplant patients, will check uric acid level. 3. History of C difficile colitis in the past: Now on suppressive vancomycin 125 mg twice daily. Over 25 min spent with this patient today. Subjective: Patient says she slept better last night. No diarrhea. Fairly laconic today, but admits to ongoing left foot pain when I asked her about it. Also reports ongoing pain in the right lower extremity. Objective: Daptomycin 550 mg Q 48 hr day 2 (antibiotics day 4) Ertapenem 0.5 g IV daily day 2 (antibiotics day 4) Vancomycin 125 mg p. O. Twice daily T-max 37.1 degrees Vital Signs Temp Pulse Resp BP Pulse Ox 37.1 C 64 16 119/55 L 88 L 08/15/18 08:00 08/15/18 08:00 08/15/18 08:00 08/15/18 08:00 08/15/18 08:00 Microbiology 08/10/18 09:00 Gram Stain - Final Leg - Other Laboratory Results 08/13/18 04:46 08/14/18 12:03 08/14/18 08/15/18 08/16/18 05:59 05:59 05:59 Intake Total 1250 Output Total 910 1100 Balance 340 -1100 Blood cultures negative - Physical Exam General Appearance: other (Looks chronically ill.) EENT: pharynx normal, No thrush Respiratory: lungs clear Cardiac/Chest: regular rate, rhythm Abdomen: non-tender, soft Skin: other (Large wound VAC in place right lower extremity with surrounding pinkish erythema and significant tenderness to palpation. No bullae. Patient' s left great toe has some subtle erythema at the base of the toe, dorsum. No obvious swelling. It is significantly tender to palpation. The rest of her foot really is not tender.) ICD10 Worksheet Patient Problems: Problems Problem Status Onset Abdominal wall hematoma Acute Anemia Acute CKD (chronic kidney disease) Acute Cellulitis of left leg Acute Cellulitis of right leg Acute Dehydration Acute Fall Acute Fever Acute Hypoxemia Acute Intracerebral hematoma Acute Minor head injury Acute Skin tear of right upper extremity Acute
--- NOTE | 2018-08-15 14:20 | HOSPPROG ---
Hospitalist Progress Note Assessment/Plan: Assessment/Plan: * Right lower extremity cellulitis associated with infected hematoma status post incision and drainage: Cultures from hematoma are polymicrobial including growth of Enterobacter, MRSA, and Bacillus cereus. Significance of bacillus is unclear. * Acute kidney injury inpatient with kidney transplant * immunosuppression, tacro, pred, imuran * History of C difficile: last episode over summer. * History of ESBL producing Klebsiella pneumoniae Given underlying renal insufficiency and prior transplantation, will utilize daptomycin for therapy targeting MRSA. Will change ceftriaxone to ertapenem as enterobacter has capacity to produce inducible beta lactamase in the setting of beta-lactam exposure. Will follow clinical response to above measures. Daptomycin and ertapenem both dose adjusted for underlying renal insufficiency. Will check baseline CPK with use of daptomycin. During my prior visit with patient in May, she described severe illness 2 years previous. Will provide oral vancomycin 125 mg twice daily for suppressive therapy in the setting of broad-spectrum antibiotic use. Objective: Vital Signs Temp Pulse Resp BP Pulse Ox 37.1 C 64 16 119/55 L 88 L 08/15/18 08:00 08/15/18 08:00 08/15/18 08:00 08/15/18 08:00 08/15/18 08:00 Microbiology 08/10/18 09:00 Gram Stain - Final Leg - Other Laboratory Results 08/13/18 04:46 08/15/18 10:09 08/14/18 08/15/18 08/16/18 06:59 06:59 06:59 Intake Total 1250 Output Total 910 1100 Balance 340 -1100 PT 15.9 SEC (12.0-15.0) H 08/09/18 15:00 INR 1.25 (0.83-1.16) H 08/09/18 15:00 ICD10 Worksheet Patient Problems: Problems Problem Status Onset Abdominal wall hematoma Acute Anemia Acute CKD (chronic kidney disease) Acute Cellulitis of left leg Acute Cellulitis of right leg Acute Dehydration Acute Fall Acute Fever Acute Hypoxemia Acute Intracerebral hematoma Acute Minor head injury Acute Skin tear of right upper extremity Acute
--- NOTE | 2018-08-15 14:47 | HOSPPROG ---
Hospitalist Progress Note Assessment/Plan: New patient to me today Assessment: * Right lower extremity cellulitis associated with infected hematoma status post incision and drainage: Cultures from hematoma are polymicrobial including growth of Enterobacter, MRSA, and Bacillus cereus. Significance of bacillus is unclear. 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 ; has bilateral knee pain and tenderness but has chronic knee issues uncertain if these are involved in the acute process -cause of this is uncertain and it will be difficult to determine in the midst of an acute inflammatory infectious illness in this woman on immune suppression therapies -appearance of joints is suspicious for rheumatoid arthritis or similar illness; doubt serologies will be very helpful at this time -determining treatment in the setting of immune suppression and infection needs careful consideration * immunosuppression, tacro, pred, imuran * Anemia, macrocytic, with normal B12 levels -notably more anemic and somewhat more macrocytic than she was here in June -anemia may be worse due to her infection, or potentially due to an inflammatory illness like RA * Constipation here, multifactorial -patient has not received aggressive bowel measures via the protocol at this time * History of C difficile: last episode over summer. * History of ESBL producing Klebsiella pneumoniae Plans: * Continue current daptomycin and ertapenem, wound VAC and other wound care measures * Continue C diff prophylactic therapy and contact isolation * Will get x-rays of hands to look at her PIP these for possible rheumatoid type changes * Will request a rheumatology consult if available * Consider a course of prednisone at higher doses for managing her arthritis but will review with Rheumatology infectious disease and nephrology * Increase use of bowel protocol measures * Will begin further assessment of her anemia and follow for stability over time SUBJECTIVE: Her main discomfort today is multiple toe finger and hand joint pain symmetrically Still some pain at her leg No chills or sweats Also has had no bowel movement for 6 days here OBJECTIVE Vitals reviewed: Intermittently with mild hypertension otherwise stable without fever Exam: alert oriented looks somewhat uncomfortable skin warm dry color ok resps not labored lungs clear BSs heart regular abd soft nondistended nontender, bowel sounds present limbs warm, no edema iv site ok Laboratory data: Chemistries order today are still pending, renal function has been improving so far here but she may be very near her baseline So far CBCs here have shown a macrocytic anemia hemoglobin 9+. Notably she was 11+ in June here and her MCV was at 101 but it is now closer to 104 range Objective: Vital Signs Temp Pulse Resp BP Pulse Ox 37.1 C 64 16 119/55 L 88 L 08/15/18 08:00 08/15/18 08:00 08/15/18 08:00 08/15/18 08:00 08/15/18 08:00 Microbiology 08/10/18 09:00 Gram Stain - Final Leg - Other Laboratory Results 08/13/18 04:46 08/15/18 10:09 08/14/18 08/15/18 08/16/18 06:59 06:59 06:59 Intake Total 1250 Output Total 910 1100 Balance 340 -1100 PT 15.9 SEC (12.0-15.0) H 08/09/18 15:00 INR 1.25 (0.83-1.16) H 08/09/18 15:00 - Time Spent With Patient Time Spent with Patient: greater than 35 minutes Time Spent with Patient: Greater than 35 minutes spent on this patients care, greater than 50% of time spent counseling, educating, and coordinating care regarding the above mentioned plan. ICD10 Worksheet Patient Problems: Problems Problem Status Onset Abdominal wall hematoma Acute Anemia Acute CKD (chronic kidney disease) Acute Cellulitis of left leg Acute Cellulitis of right leg Acute Dehydration Acute Fall Acute Fever Acute Hypoxemia Acute Intracerebral hematoma Acute Minor head injury Acute Skin tear of right upper extremity Acute
[2018-08-15] MEDS ORDERED: DAPTOmycin 550 MG in NS 100 ML IV SCH (17:30)
--- NOTE | 2018-08-15 17:57 | SOAPPROG ---
SOAP Progress Note Assessment/Plan: Assessment: s/p evacuation large traumatic hematoma Acute renal insufficiency Polymicrobial infection - appreciate ID Immunosupression Continue wound VAC changes 3 times per week. If continues to have healthy granulation tissue will be able to skin graft in 4- 6 weeks Much more painful today. Extreme calf tenderness. Ordered ultrasound to rule out DVT. No DVT. S: Pain at leg is worsening O: [place] to suction Plan: 08/10/18 12:53 08/11/18 09:07 08/15/18 17:56 Objective: Vital Signs Temp Pulse Resp BP Pulse Ox 36.8 C 66 16 138/60 H 91 L 08/15/18 16:00 08/15/18 16:00 08/15/18 16:00 08/15/18 16:00 08/15/18 16:00 Microbiology 08/10/18 09:00 Gram Stain - Final Leg - Other Laboratory Results 08/13/18 04:46 08/14/18 08/15/18 08/16/18 05:59 05:59 05:59 Intake Total 1250 500 Output Total 910 1100 300 Balance 340 -1100 200 PT 15.9 SEC (12.0-15.0) H 08/09/18 15:00 INR 1.25 (0.83-1.16) H 08/09/18 15:00 ICD10 Worksheet Patient Problems: Problems Problem Status Onset Abdominal wall hematoma Acute Anemia Acute CKD (chronic kidney disease) Acute Cellulitis of left leg Acute Cellulitis of right leg Acute Dehydration Acute Fall Acute Fever Acute Hypoxemia Acute Intracerebral hematoma Acute Minor head injury Acute Skin tear of right upper extremity Acute
[2018-08-15] MEDS ORDERED: predniSONE 20 MG TAB PO ONE (19:55)
[2018-08-15] MEDS: GABAPENTIN 100 MG CAP PO SCH (21:46)
[2018-08-16] MEDS ORDERED: ERTAPENEM 1 GM in NS 50 ML IV SCH (09:00)
[2018-08-16] MEDS: TACROLIMUS 1 MG CAP PO SCH ×2 (09:21→21:01)
[2018-08-16] MEDS: VANCOMYCIN 125 MG/2.5 ML UDL PO SCH ×2 (09:21→21:01)
[2018-08-16] MEDS: CALCITRIOL 0.25 MCG CAP PO SCH (09:22)
[2018-08-16] MEDS: predniSONE 5 MG TAB PO SCH (09:22)
[2018-08-16] MEDS: SENNOSIDES/DOCUSATE SODIUM TAB PO SCH ×2 (09:22→20:59)
[2018-08-16] MEDS: azaTHIOprine 50 MG TAB PO SCH (09:22)
[2018-08-16] MEDS: CHOLECALCIFEROL VIT D3 2,000 UNITS TAB/CAP PO SCH (09:23)
[2018-08-16] MEDS: ACETAMINOPHEN 325 MG TAB PO PRN (09:55)
[2018-08-16] MEDS: cycloSPORINE 0.05% 30 DROPERETTE/BOX EACHEYE SCH ×2 (09:56→21:02)
[2018-08-16] MEDS: DORZOLAMIDE/TIMOLOL 10 ML OPHT.BTL EACHEYE SCH ×2 (09:57→21:02)
--- NOTE | 2018-08-16 10:09 | SOAPPROG ---
SOAP Progress Note Assessment/Plan: Assessment: IRMA, creat near baseline kidney transplant, baseline creat about 1.5, creat 1.5 yesterday Anemia, following hyperkalemia today non gap acidosis, better with bicarb immunosuppression, tacro, pred, imuran infected R leg, wound vac in place, ABX changed to Dapto and Ertapenem with PO Vanco for C-diff prophylaxis Plan: continue abx continue immunosuppression continue wound care increase bicarb repeat K possible transfer to rehab for continued care will need outpatient renal follow up when wound issues addressed 08/14/18 07:44 08/15/18 09:15 08/16/18 10:06 Subjective: spirits good only compalint is she needs to have a BM no cp sob nausea or vomitin appetite not great slept well last night Objective: Vital Signs Temp Pulse Resp BP Pulse Ox 36.5 C 66 18 163/68 H 93 08/16/18 08:00 08/16/18 08:00 08/16/18 08:00 08/16/18 08:00 08/16/18 08:00 Microbiology 08/10/18 09:00 Gram Stain - Final Leg - Other Laboratory Results 08/13/18 04:46 08/16/18 05:10 08/15/18 08/16/18 08/17/18 05:59 05:59 05:59 Intake Total 500 Output Total 1100 650 Balance -1100 -150 PT 15.9 SEC (12.0-15.0) H 08/09/18 15:00 INR 1.25 (0.83-1.16) H 08/09/18 15:00 Physical Exam - Physical Exam General Appearance: alert, other (chronically ill appearing) Neck: normal inspection Respiratory: No rhonchi, No wheezing Cardiac/Chest: regular rate, rhythm, edema, systolic murmur, No friction rub Abdomen: non-tender, soft, other (allograft RLQ, nt, no bruit) Skin: other (wound vac RLE, cellulitis looks better) Extremities: pedal edema Neuro/Psych: alert, normal mood/affect ICD10 Worksheet Patient Problems: Problems Problem Status Onset Abdominal wall hematoma Acute Anemia Acute CKD (chronic kidney disease) Acute Cellulitis of left leg Acute Cellulitis of right leg Acute Dehydration Acute Fall Acute Fever Acute Hypoxemia Acute Intracerebral hematoma Acute Minor head injury Acute Skin tear of right upper extremity Acute
[2018-08-16] MEDS ORDERED: METHYLNALTREXONE BROMIDE 12 MG/0.6 ML INJ SC ONE (10:25)
[2018-08-16] MEDS ORDERED: predniSONE 20 MG TAB PO ONE (10:31)
--- NOTE | 2018-08-16 10:33 | HOSPPROG ---
Hospitalist Progress Note Assessment/Plan: New patient to me today Assessment: * Right lower extremity cellulitis associated with infected hematoma status post incision and drainage: Cultures from hematoma are polymicrobial including growth of Enterobacter, MRSA, and Bacillus cereus. Significance of bacillus is unclear. * Acute kidney injury inpatient with kidney transplant -worse today, not sure why -some hyperkalemia with that * Acute symmetric inflammatory polyarthropathy involving primarily small joints ; has bilateral knee pain and tenderness but has chronic knee issues uncertain if these are involved in the acute process -cause of this is uncertain and it will be difficult to determine in the midst of an acute inflammatory infectious illness in this woman on immune suppression therapies -appearance of joints is suspicious for rheumatoid arthritis or similar illness; doubt serologies will be very helpful at this time -has responded to 1 dose of the 40 mg prednisone given yesterday with decreased pain and improved range of motion * immunosuppression, tacro, pred, imuran * Anemia, macrocytic, with normal B12 levels -notably more anemic and somewhat more macrocytic than she was here in June -anemia may be worse due to her infection, or potentially due to an inflammatory illness like RA * Constipation here, multifactorial -remains with no bowel movement in 1 week, need increase the therapy for this * History of C difficile: last episode over summer. * History of ESBL producing Klebsiella pneumoniae Plans: * Continue current daptomycin and ertapenem, wound VAC and other wound care measures * Continue C diff prophylactic therapy and contact isolation * Will give another dose of prednisone today * Change bowel treatment to scheduled medicines instead of protocol, and at some methyl naltrexone today; avoid potassium containing and magnesium containing preparations * Will follow anemia for stability over time SUBJECTIVE: PCP MCP and MTP joints all somewhat better today with less pain and better mobility, but still with significant pain Still some pain at her leg wound but better No chills or sweats Also has had no bowel movement for 7 days here, feels bloated and mild pain right lower quadrant OBJECTIVE Vitals reviewed: Intermittently with mild hypertension otherwise stable without fever Exam: alert oriented looks somewhat uncomfortable skin warm dry color ok resps not labored lungs clear BSs heart regular abd soft nondistended some focal right lower quadrant tenderness without rebound , bowel sounds present limbs her MCPs and PIP is on both hands are somewhat improved from yesterday, and she now can make a normal fist with the right hand and get snf there with the left hand neither of which she could do yesterday. Her left foot MTPs are also improved today with less tenderness in better range of motion. The less swelling and erythema is present at all these joints today. iv site ok Laboratory data: Creatinine up to 1.6 today with rise in BUN and potassium up to 5.6 Radiology: I reviewed images from X-rays of hands which did show some mild periarticular soft tissue swelling at PIPs and MCPs but no more chronic changes Objective: Vital Signs Temp Pulse Resp BP Pulse Ox 36.5 C 66 18 163/68 H 93 08/16/18 08:00 08/16/18 08:00 08/16/18 08:00 08/16/18 08:00 08/16/18 08:00 Microbiology 08/10/18 09:00 Gram Stain - Final Leg - Other Laboratory Results 08/13/18 04:46 08/16/18 05:10 08/15/18 08/16/18 08/17/18 06:59 06:59 06:59 Intake Total 500 Output Total 1100 650 Balance -1100 -150 PT 15.9 SEC (12.0-15.0) H 08/09/18 15:00 INR 1.25 (0.83-1.16) H 08/09/18 15:00 - Time Spent With Patient Time Spent with Patient: greater than 35 minutes Time Spent with Patient: Greater than 35 minutes spent on this patients care, greater than 50% of time spent counseling, educating, and coordinating care regarding the above mentioned plan. ICD10 Worksheet Patient Problems: Problems Problem Status Onset Abdominal wall hematoma Acute Anemia Acute CKD (chronic kidney disease) Acute Cellulitis of left leg Acute Cellulitis of right leg Acute Dehydration Acute Fall Acute Fever Acute Hypoxemia Acute Intracerebral hematoma Acute Minor head injury Acute Skin tear of right upper extremity Acute
--- NOTE | 2018-08-16 10:41 | PCMIDPN ---
Assessment/Plan: 1. Right lower extremity cellulitis with polymicrobial infected hematoma status post debridement with VAC placement: Lower extremity much less painful today compared with yesterday. Margins around wound VAC are less erythematous as well. There is clearly improvement compared with yesterday. Continue daptomycin and ertapenem, but given that creatinine is back to previous, will dose adjust with Q 48 daptomycin and ertapenem 0.5 g daily. 2. Left foot pain: Much better today with increased dose of prednisone. Apparently yesterday afternoon patient was having pain in her hands, which is also resolving. 3. History of C difficile colitis in the past: Now on suppressive vancomycin 125 mg twice daily. 08/16/18 10:38 Subjective: Patient is complaining of constipation. Left great toe pain is gone. Objective: Daptomycin 550 mg IV daily day 3 (antibiotics day 5) Ertapenem 1 g IV daily day 3 (antibiotics day 5) Oral vancomycin 125 mg twice daily Vital Signs Temp Pulse Resp BP Pulse Ox 36.5 C 66 18 163/68 H 93 08/16/18 08:00 08/16/18 08:00 08/16/18 08:00 08/16/18 08:00 08/16/18 08:00 Microbiology 08/10/18 09:00 Gram Stain - Final Leg - Other Laboratory Results 08/13/18 04:46 08/16/18 05:10 08/15/18 08/16/18 08/17/18 05:59 05:59 05:59 Intake Total 500 Output Total 1100 650 Balance -1100 -150 Laboratory Tests 08/14/18 08/14/18 08/15/18 12:03 12:03 16:00 Creatinine 1.5 H Uric Acid 7.0 H Creatine Kinase 24 08/16/18 05:10 Creatinine 1.6 H Uric Acid Creatine Kinase Previous leg cultures with Enterobacter cloacae, MRSA, and bacillus cereus - Physical Exam General Appearance: alert, no apparent distress, other (Tired, but making more conversation with me today compared with yesterday) EENT: No thrush Respiratory: lungs clear Extremities: other (Right lower extremity: Wound VAC in place. Surrounding soft tissues with less prominent erythema and tenderness. Swelling has also improved with notable skin wrinkling. Left great toe is no longer erythematous and she is able to flex and extend it without pain.) Skin: No rash, No embolic lesions ICD10 Worksheet Patient Problems: Problems Problem Status Onset Abdominal wall hematoma Acute Anemia Acute CKD (chronic kidney disease) Acute Cellulitis of left leg Acute Cellulitis of right leg Acute Dehydration Acute Fall Acute Fever Acute Hypoxemia Acute Intracerebral hematoma Acute Minor head injury Acute Skin tear of right upper extremity Acute
[2018-08-16] MEDS: SERTRALINE HCL 50 MG TAB PO SCH (10:55)
[2018-08-16] MEDS: oxyCODONE IR 5 MG TAB PO PRN ×2 (11:34→21:00)
[2018-08-16] MEDS: SODIUM BICARBONATE 650 MG TAB PO SCH ×3 (13:35→21:01)
--- NOTE | 2018-08-16 13:39 | WOCRNPDOC ---
WOCRShelia Advanced Assessment Note - Skin Integrity Problem, Advanced Assess Right Lower Lateral Leg Surgical Wound/Incision Dressing Type: Wound Vac, Other Other Dressing Type: casey foam, casey perforated foam Dressing Description: Clean/Dry, Intact Closure Description: Not Approximated Exudate Amount: Scant Exudate Characteristic(s): Serosanguinous Integumentary Issue Intervention: Dressing Changed Sharon Wound Tissue: Intact, Painful/Tender Wound Bed Color: Humble, Red Wound Bed Constitution: Red/Humble - Non Granular Tissue (60%), Undermining (9-10 , 1cm), Adhered Slough (40%) Wound Edges: Attached, Well Defined Site Measurement - Head-to-Toe Length X Width X Depth (cm): [id number] Skin Integrity Problem Comment: Patient medicated by ANGELO Jewell prior to dressing change. Dressing removed by TRISHA Chong using lidocaine to wound bed. Wound bed cleaned with NS and gauze. Skin prep applied to sharon-wound tissue and draped. After a brief discussion with Dr. Friend r/t discharge plan, plan to continue with Veraflo and use of Vashe thru the weekend. Perforated casey foam applied to immediate wound bed (x3), followed by thin casey cleanse foam (x2). Patient tolerated well. Vac settings resumed - instill 85ml vashe Q3H for a dwell time of 6 minutes with vac set to -125mmHg suction. This RN remained at bedside through one instillation and dwell cycle to verify no leaks. Dressing remained intact and patient tolerated well. Wound care will round again on Sunday for planned vac change. Plan reviewed with ANGELO Jewell and all questions answered.
--- NOTE | 2018-08-16 14:21 | ASMTLACE ---
TIMAE Length of stay for Answers: 7-13 days current admission Acuity / Level of Answers: Yes Care: Did the patient have an inpatient admission? Comorbidities - select Answers: Moderate or severe liver all that apply or renal disease Other Notes: Glaucoma # of Emergency department Answers: 3-4 visits in the last 6 months Social determinants Answers: Mental health diagnosis (anxiety, depression, pers onality disorders, etc.) Score: 19 Date Signed: 08/16/2018 02:17 PM Electronically Signed By:Liudmila Rush RN
--- NOTE | 2018-08-16 14:31 | ASMTCMCOM ---
CM Note CM Note Notes: Spoke w/RN, pt will be here through the weekend. Wound vac changed today, Bessie at [facility] and Lian ([phone]) at [facility] notified. DC Plan: [facility] Date Signed: 08/16/2018 02:25 PM Electronically Signed By:Liudmila Rush RN
--- NOTE | 2018-08-16 17:40 | SOAPPROG ---
SOAP Progress Note Assessment/Plan: Assessment/Plan: 72yo F POD#4 s/p debridement skin/soft tissue and evacuation large RLE traumatic hematoma. IRMA, s/p kidney transplant on immunosuppression Veraflo reapplied today Plan for skin graft in 4-6 weeks. IV antibiotics - enterobacter, MRSA - ID following Appreciate hospitalists, nephrology Dispo: will stay through sunday, then re-eval for [facility] when [facility], vac change MWF S: Much less pain today compared to yesterday O: Lying in bed, comfortable, NAD No increased WOB RLE edema 1+ Erythema significantly improved Min tender to palpation Wound bed with healthy granulation. Some sharp debridement performed. No active bleeding. Objective: Vital Signs Temp Pulse Resp BP Pulse Ox 36.4 C 59 L 18 148/82 H 94 08/16/18 14:55 08/16/18 14:55 08/16/18 14:55 08/16/18 14:55 08/16/18 14:55 Microbiology 08/10/18 09:00 Gram Stain - Final Leg - Other Laboratory Results 08/13/18 04:46 08/16/18 15:15 08/15/18 08/16/18 08/17/18 05:59 05:59 05:59 Intake Total 500 Output Total 1100 650 Balance -1100 -150 PT 15.9 SEC (12.0-15.0) H 08/09/18 15:00 INR 1.25 (0.83-1.16) H 08/09/18 15:00 ICD10 Worksheet Patient Problems: Problems Problem Status Onset Abdominal wall hematoma Acute Anemia Acute CKD (chronic kidney disease) Acute Cellulitis of left leg Acute Cellulitis of right leg Acute Dehydration Acute Fall Acute Fever Acute Hypoxemia Acute Intracerebral hematoma Acute Minor head injury Acute Skin tear of right upper extremity Acute
[2018-08-16] MEDS: GABAPENTIN 100 MG CAP PO SCH (21:00)
[2018-08-17] MEDS: SODIUM BICARBONATE 650 MG TAB PO SCH ×4 (05:44→21:10)
[2018-08-17] MEDS: TACROLIMUS 1 MG CAP PO SCH ×2 (08:16→21:10)
[2018-08-17] MEDS: POLYETHYLENE GLYCOL 3350 17 GM PKT PO SCH (08:16)
[2018-08-17] MEDS: SERTRALINE HCL 50 MG TAB PO SCH (08:17)
[2018-08-17] MEDS: CHOLECALCIFEROL VIT D3 2,000 UNITS TAB/CAP PO SCH (08:17)
[2018-08-17] MEDS: SENNOSIDES/DOCUSATE SODIUM TAB PO SCH ×2 (08:18→21:10)
[2018-08-17] MEDS: predniSONE 5 MG TAB PO SCH (08:18)
[2018-08-17] MEDS: azaTHIOprine 50 MG TAB PO SCH (08:18)
[2018-08-17] MEDS: VANCOMYCIN 125 MG/2.5 ML UDL PO SCH ×2 (08:19→21:09)
[2018-08-17] MEDS: DORZOLAMIDE/TIMOLOL 10 ML OPHT.BTL EACHEYE SCH ×2 (08:21→21:09)
[2018-08-17] MEDS: cycloSPORINE 0.05% 30 DROPERETTE/BOX EACHEYE SCH ×2 (08:23→21:13)
--- NOTE | 2018-08-17 09:19 | PCMIDPN ---
Assessment/Plan: # RLE cellulitis associated w hematoma s/p evacuation, pain much improved today , only faint erythema remains --plan 10 days of antibiotics, not good oral option, no IV access today, unfortunately need to put in PICC line for 4-5 more days of abx --daptomycin for MRSA coverage in patient w renal transplant & high risk of renal toxicity (vs IV vancomycin) --ertapenem being utilized bc known ESBL Klebs in the past although current isolate enterobacter --awaiting labs for today, will adjust abx --dapto + ertapenem, 08/22/18 STOP DATE # H/o Renal transplant: Cr was 1.6 yesterday # MRSA, ESBL E coli: Contact isolation Meds Daptomycin 550 mg IV q48h day 4 (antibiotics day 6) Ertapenem 0.5 g IV daily day 4 (antibiotics day 6) Oral vancomycin 125 mg twice daily Microbiology 08/13/18 10:15 Blood Cx (2)ngtd 08/10/18 09:00 Leg - Enterobacter Cloacae; Bacillus Cereus Group; MRSA Subjective: unable to get IV access Objective: Vital Signs Temp Pulse Resp BP Pulse Ox 35.9 C L 58 L 14 133/74 H 94 08/17/18 08:00 08/17/18 08:00 08/17/18 08:00 08/17/18 08:00 08/17/18 08:00 Microbiology 08/10/18 09:00 Gram Stain - Final Leg - Other Laboratory Results 08/13/18 04:46 08/16/18 15:15 08/16/18 08/17/18 08/18/18 05:59 05:59 05:59 Intake Total 500 1500 Output Total 650 400 Balance -150 1100 - Physical Exam General Appearance: alert, no apparent distress, other (alopecia) EENT: dry mucous membranes, No thrush Respiratory: lungs clear, No accessory muscle use Neck: supple Cardiac/Chest: regular rate, rhythm, systolic murmur Extremities: other (R lateral wound vac in place w faint erythema over anterior luna; ankle ROM intact, no crepitis, pulse 1+, cap refil slightly slow) Skin: warm/dry, other (scattered bruising), No rash Neuro/Psych: alert, normal mood/affect, oriented x 3 - Time Spent With Patient Time Spent with Patient: greater than 35 minutes Time Spent with Patient: Greater than 35 minutes spent on this patients care, greater than 50% of time spent counseling, educating, and coordinating care regarding the above mentioned plan. ICD10 Worksheet Patient Problems: Problems Problem Status Onset Abdominal wall hematoma Acute Anemia Acute CKD (chronic kidney disease) Acute Cellulitis of left leg Acute Cellulitis of right leg Acute Dehydration Acute Fall Acute Fever Acute Hypoxemia Acute Intracerebral hematoma Acute Minor head injury Acute Skin tear of right upper extremity Acute
[2018-08-17] MEDS ORDERED: ALTEPLASE 2 MG VIAL IVP PRN (09:23)
--- NOTE | 2018-08-17 10:03 | SOAPPROG ---
SOAP Progress Note Assessment/Plan: Assessment: s/p evacuation large traumatic hematoma Acute renal insufficiency - resolved Polymicrobial infection - appreciate ID Immunosupression Continue wound VAC changes 3 times per week. If continues to have healthy granulation tissue will be able to skin graft after Thanksgiving. If vera flow has problems, can change to regular vac settings S: Pain is much improved O: WV to suction Plan: 08/10/18 12:53 08/11/18 09:07 08/15/18 17:56 08/17/18 10:02 Objective: Vital Signs Temp Pulse Resp BP Pulse Ox 35.9 C L 58 L 14 133/74 H 94 08/17/18 08:00 08/17/18 08:00 08/17/18 08:00 08/17/18 08:00 08/17/18 08:00 Microbiology 08/10/18 09:00 Gram Stain - Final Leg - Other Laboratory Results 08/13/18 04:46 08/16/18 15:15 08/16/18 08/17/18 08/18/18 05:59 05:59 05:59 Intake Total 500 1500 Output Total 650 400 Balance -150 1100 PT 15.9 SEC (12.0-15.0) H 08/09/18 15:00 INR 1.25 (0.83-1.16) H 08/09/18 15:00 ICD10 Worksheet Patient Problems: Problems Problem Status Onset Abdominal wall hematoma Acute Anemia Acute CKD (chronic kidney disease) Acute Cellulitis of left leg Acute Cellulitis of right leg Acute Dehydration Acute Fall Acute Fever Acute Hypoxemia Acute Intracerebral hematoma Acute Minor head injury Acute Skin tear of right upper extremity Acute
--- NOTE | 2018-08-17 10:45 | HOSPPROG ---
Hospitalist Progress Note Assessment/Plan: Assessment: * Right lower extremity cellulitis associated with infected hematoma, status post incision and drainage: Cultures from hematoma are polymicrobial including growth of Enterobacter, MRSA, and Bacillus cereus. Significance of bacillus is unclear. * Acute kidney injury inpatient with kidney transplant -labs for today pending; uncertain why creat increased yesterday -some hyperkalemia with that * Acute symmetric inflammatory polyarthropathy involving all MCPs, all PIPs, and most of her MTPs; also bilateral knee pain is more chronic so may not be part of this process -cause of this is uncertain and it will be difficult to determine in the midst of an acute inflammatory infectious illness in this woman on immune suppression therapies -appearance of joints is suspicious for rheumatoid arthritis or similar illness; doubt serologies will be very helpful at this time -has responded to 1 dose of the 40 mg prednisone given yesterday with decreased pain and improved range of motion * immunosuppression, tacrolimus, prednisone, imuran * Anemia, macrocytic, with normal B12 levels -notably more anemic and somewhat more macrocytic than she was here in June - -anemia may be worse due to her infection, or potentially due to an inflammatory illness like RA * Constipation here, multifactorial -effective relief w relistor 08/16 * History of C difficile: last episode over summer, on preventive vanco here * History of ESBL producing Klebsiella pneumoniae Plans: * Continue current daptomycin and ertapenem 4 more days, wound VAC and other wound care measures * PICC ordered as she has no IV or blood draw access at this moment * Continue C diff prophylactic therapy and contact isolation * Will give another dose of 20 mg prednisone today, start 15 mg tomorrow and see if her joints tolerate tapering off over 7-10 days (so far has had 1 dose of 40 mg and 1 dose of 20 mg prednisone) * Await today's creatinine and potassium numbers, reassess when those are available * MiraLax at this time to prevent recurrence of severe constipation * Will follow anemia for stability over time * contact isolation for hx of recent esbl I have reviewed care plan today with Dr Villar and Dr Mejia SUBJECTIVE: Continued improvement in her acute joint pains of MCPs, PIPs, MTPs, after 2 doses of steroid Continued improvement in pain at leg wound No chills or sweats Did have very large bowel evacuation yesterday after methyl naltrexone; starting to eat better after that OBJECTIVE Vitals reviewed: Stable without fever Exam: alert oriented looks a bit more relaxed and comfortable today skin warm dry color ok resps not labored lungs clear BSs heart regular abd soft less distended, nontender, bowel sounds present limbs continued improvement in swelling and pain of MCPs PIPs MTPs, now full range of motion of joints at right hand, still not able to make fist normally with left hand but better, moving toes okay; right leg wound has wound VAC in place looks excellent iv site ok Laboratory data: currently today's labs pending due to unable to obtain sample / PICC placement is pending Objective: Vital Signs Temp Pulse Resp BP Pulse Ox 35.9 C L 58 L 14 133/74 H 94 08/17/18 08:00 08/17/18 08:00 08/17/18 08:00 08/17/18 08:00 08/17/18 08:00 Microbiology 08/10/18 09:00 Gram Stain - Final Leg - Other Laboratory Results 08/13/18 04:46 08/16/18 15:15 08/16/18 08/17/18 08/18/18 06:59 06:59 06:59 Intake Total 500 1500 Output Total 650 400 Balance -150 1100 PT 15.9 SEC (12.0-15.0) H 08/09/18 15:00 INR 1.25 (0.83-1.16) H 08/09/18 15:00 ICD10 Worksheet Patient Problems: Problems Problem Status Onset Abdominal wall hematoma Acute Anemia Acute CKD (chronic kidney disease) Acute Cellulitis of left leg Acute Cellulitis of right leg Acute Dehydration Acute Fall Acute Fever Acute Hypoxemia Acute Intracerebral hematoma Acute Minor head injury Acute Skin tear of right upper extremity Acute
[2018-08-17] MEDS: oxyCODONE IR 5 MG TAB PO PRN ×4 (11:13→21:10)
--- NOTE | 2018-08-17 11:27 | SOAPPROG ---
SOAP Progress Note Assessment/Plan: Assessment/Plan: h/o renal transplant: continue her IS regimen. CKD 3: baseline Cr around 1.5 post-transplant, close to baseline at 1.6 yesterday. - Will continue to monitor, awaiting labs today. - Avoid hypotension and nephrotoxins. Hyperkalemia: improved yesterday with increasing bicarb tabs, will continue to monitor. Metabolic acidosis: on bicarb tabs, will continue to monitor. Subjective: No acute events overnight. Pt states she did not sleep well. Objective: Vital Signs Temp Pulse Resp BP Pulse Ox 35.9 C L 58 L 14 133/74 H 94 08/17/18 08:00 08/17/18 08:00 08/17/18 08:00 08/17/18 08:00 08/17/18 08:00 Microbiology 08/10/18 09:00 Gram Stain - Final Leg - Other Laboratory Results 08/13/18 04:46 08/16/18 15:15 08/16/18 08/17/18 08/18/18 05:59 05:59 05:59 Intake Total 500 1500 Output Total 650 400 Balance -150 1100 PT 15.9 SEC (12.0-15.0) H 08/09/18 15:00 INR 1.25 (0.83-1.16) H 08/09/18 15:00 General: alert and oriented, no acute distress Eyes; EOMI, PERRL OP: Clear CV: RRR Resp: nonlabored respirations Abd: Soft, NT Ext: +1 edema BLE Neuro: CN II-XII grossly intact, no asterixis ICD10 Worksheet Patient Problems: Problems Problem Status Onset Abdominal wall hematoma Acute Anemia Acute CKD (chronic kidney disease) Acute Cellulitis of left leg Acute Cellulitis of right leg Acute Dehydration Acute Fall Acute Fever Acute Hypoxemia Acute Intracerebral hematoma Acute Minor head injury Acute Skin tear of right upper extremity Acute
[2018-08-17] MEDS ORDERED: predniSONE 20 MG TAB PO ONE (11:34)
[2018-08-17] MEDS: HEPARIN 5,000 UNIT/0.5 ML INJ SC SCH ×3 (14:56→21:11)
[2018-08-17] MEDS: ERTAPENEM 0.5 GM in NS 50 ML IV SCH (16:07)
[2018-08-17] MEDS: DAPTOmycin 550 MG in NS 100 ML IV SCH (16:47)
[2018-08-17 17:27] LABS: PLATELET COUNT 252 10^3/uL (150-400)
[2018-08-17] MEDS: GABAPENTIN 100 MG CAP PO SCH (21:10)
[2018-08-18] MEDS: SODIUM BICARBONATE 650 MG TAB PO SCH ×4 (05:42→21:30)
[2018-08-18] MEDS: HEPARIN 5,000 UNIT/0.5 ML INJ SC SCH ×3 (05:42→21:30)
[2018-08-18] MEDS: SENNOSIDES/DOCUSATE SODIUM TAB PO SCH ×3 (10:32→21:58)
[2018-08-18] MEDS: VANCOMYCIN 125 MG/2.5 ML UDL PO SCH ×2 (10:32→21:30)
[2018-08-18] MEDS: ERTAPENEM 0.5 GM in NS 50 ML IV SCH (10:32)
[2018-08-18] MEDS: CALCITRIOL 0.25 MCG CAP PO SCH (10:33)
[2018-08-18] MEDS: TACROLIMUS 1 MG CAP PO SCH ×2 (10:34→21:30)
[2018-08-18] MEDS: CHOLECALCIFEROL VIT D3 2,000 UNITS TAB/CAP PO SCH (10:34)
[2018-08-18] MEDS: azaTHIOprine 50 MG TAB PO SCH (10:34)
[2018-08-18] MEDS: predniSONE 5 MG TAB PO SCH ×2 (10:35→11:00)
[2018-08-18] MEDS: SERTRALINE HCL 50 MG TAB PO SCH (10:36)
[2018-08-18] MEDS: POLYETHYLENE GLYCOL 3350 17 GM PKT PO SCH (10:43)
[2018-08-18] MEDS: cycloSPORINE 0.05% 30 DROPERETTE/BOX EACHEYE SCH ×2 (10:44→21:32)
[2018-08-18] MEDS: DORZOLAMIDE/TIMOLOL 10 ML OPHT.BTL EACHEYE SCH ×2 (10:44→21:32)
--- NOTE | 2018-08-18 11:24 | SOAPPROG ---
SOAP Progress Note Assessment/Plan: Assessment: s/p evacuation large traumatic hematoma Acute renal insufficiency - resolved Polymicrobial infection - appreciate ID Immunosupression Contact isolation for MRSA, ESBL E coli Continue wound VAC changes 3 times per week. If continues to have healthy granulation tissue will plan to skin graft after Thanksgiving. If vera flow has problems, can change to regular vac settings S: Sleeping, opened eyes to exam and quickly fell back to sleep O: WV in place and suctioning well. Plan: 08/10/18 12:53 08/11/18 09:07 08/15/18 17:56 08/17/18 10:02 08/18/18 11:23 08/18/18 11:24 08/18/18 11:44 Objective: Vital Signs Temp Pulse Resp BP Pulse Ox 36.5 C 63 16 162/73 H 94 08/18/18 08:00 08/18/18 08:00 08/18/18 08:00 08/18/18 08:00 08/18/18 08:00 Laboratory Results 08/17/18 10:40 08/18/18 05:40 08/17/18 08/18/18 08/19/18 05:59 05:59 05:59 Intake Total 1500 1700 Output Total 400 700 Balance 1100 1000 PT 15.9 SEC (12.0-15.0) H 08/09/18 15:00 INR 1.25 (0.83-1.16) H 08/09/18 15:00 ICD10 Worksheet Patient Problems: Problems Problem Status Onset Abdominal wall hematoma Acute Anemia Acute CKD (chronic kidney disease) Acute Cellulitis of left leg Acute Cellulitis of right leg Acute Dehydration Acute Fall Acute Fever Acute Hypoxemia Acute Intracerebral hematoma Acute Minor head injury Acute Skin tear of right upper extremity Acute
--- NOTE | 2018-08-18 11:51 | HOSPPROG ---
Hospitalist Progress Note Assessment/Plan: 72 yo F w infected hematoma, renal transplant * Right lower extremity cellulitis associated with infected hematoma, status post incision and drainage: Cultures from hematoma are polymicrobial including growth of Enterobacter, MRSA, and Bacillus cereus. Significance of bacillus is unclear. 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, all PIPs, and most of her MTPs; also bilateral knee pain is more chronic so may not be part of this process -cause of this is uncertain and it will be difficult to determine in the midst of an acute inflammatory infectious illness in this woman on immune suppression therapies -appearance of joints is suspicious for rheumatoid arthritis or similar illness; doubt serologies will be very helpful at this time -has responded to 1 dose of the 40 mg prednisone given yesterday with decreased pain and improved range of motion will do five days total pred (61-92-20-15-15) last day 08/20 * immunosuppression, tacrolimus, prednisone, imuran * Anemia, macrocytic, with normal B12 levels -notably more anemic and somewhat more macrocytic than she was here in June - -anemia may be worse due to her infection, or potentially due to an inflammatory illness like RA * Constipation here, multifactorial -effective relief w relistor 08/16 still w diarrhea follow- h/o cdiff noted * History of C difficile: last episode over summer, on preventive vanco here * History of ESBL producing Klebsiella pneumoniae proph: sc heparin Subjective: case d/w lei connolly. diarrhea Objective: Vital Signs Temp Pulse Resp BP Pulse Ox 36.5 C 63 16 162/73 H 94 08/18/18 08:00 08/18/18 08:00 08/18/18 08:00 08/18/18 08:00 08/18/18 08:00 Laboratory Results 08/17/18 10:40 08/18/18 05:40 08/17/18 08/18/18 08/19/18 05:59 05:59 05:59 Intake Total 1500 1700 Output Total 400 700 Balance 1100 1000 PT 15.9 SEC (12.0-15.0) H 08/09/18 15:00 INR 1.25 (0.83-1.16) H 08/09/18 15:00 - Physical Exam Constitutional: no apparent distress, appears nourished Eyes: PERRL, anicteric sclera Ears, Nose, Mouth, Throat: moist mucous membranes, hearing normal Cardiovascular: regular rate and rhythym, no murmur, rub, or gallop Respiratory: no respiratory distress, no rales or rhonchi Gastrointestinal: normoactive bowel sounds, soft, non-tender abdomen Genitourinary: no bladder fullness, No brooks in urethra Skin: warm, normal color Musculoskeletal: No full muscle strength Neurologic: AAOx3 Psychiatric: interacting appropriately ICD10 Worksheet Patient Problems: Problems Problem Status Onset Abdominal wall hematoma Acute Anemia Acute CKD (chronic kidney disease) Acute Cellulitis of left leg Acute Cellulitis of right leg Acute Dehydration Acute Fall Acute Fever Acute Hypoxemia Acute Intracerebral hematoma Acute Minor head injury Acute Skin tear of right upper extremity Acute
[2018-08-18] MEDS: ACETAMINOPHEN 325 MG TAB PO PRN ×2 (12:49→18:42)
--- NOTE | 2018-08-18 14:31 | PCMIDPN ---
Assessment/Plan: # RLE cellulitis associated w hematoma s/p evacuation, pain much improved today , only faint erythema remains --plan 10 days of antibiotics, not good oral option, PICC line placed yesterday to finish few more days of Abx --daptomycin for MRSA coverage in patient w renal transplant & high risk of renal toxicity (vs IV vancomycin) --ertapenem being utilized bc known ESBL Klebs in the past although current isolate Enterobacter --dapto + ertapenem, 08/22/18 STOP DATE --check CK in AM # H/o Renal transplant: Cr was 1.8 now, no change in renal dosing of antibiotics # MRSA, ESBL E coli: Contact isolation # H/o Cdiff --continue vancomycin 1 week after antibiotic discontinued Meds Daptomycin 550 mg IV q48h day 5 (antibiotics day 7) Ertapenem 0.5 g IV daily day 5 (antibiotics day 7) Oral vancomycin 125 mg twice daily Microbiology 08/13/18 10:15 Blood Cx (2)ngtd 08/10/18 09:00 Leg - Enterobacter Cloacae; Bacillus Cereus Group; MRSA Subjective: c/o LO today Objective: Vital Signs Temp Pulse Resp BP Pulse Ox 36.5 C 63 16 162/73 H 94 08/18/18 08:00 08/18/18 08:00 08/18/18 08:00 08/18/18 08:00 08/18/18 08:00 Laboratory Results 08/17/18 10:40 08/18/18 05:40 08/17/18 08/18/18 08/19/18 05:59 05:59 05:59 Intake Total 1500 1700 Output Total 400 700 Balance 1100 1000 General Appearance: alert, no apparent distress, alopecia EENT: dry mucous membranes, No thrush Respiratory: lungs clear, No accessory muscle use Neck: supple Cardiac/Chest: regular rate, rhythm, systolic murmur Extremities: R lateral wound vac in place w faint erythema over anterior luna - fainter than yesterday; ankle ROM intact, no crepitus, pulse 1+, cap refill slightly slow Skin: warm/dry, scattered bruising, No rash Neuro/Psych: alert, normal mood/affect, oriented x 3 RUE PICC c/d/i Time Spent with Patient: Greater than 25 minutes spent on this patients care, greater than 50% of time spent counseling, educating, and coordinating care regarding the above mentioned plan. ICD10 Worksheet Patient Problems: Problems Problem Status Onset Abdominal wall hematoma Acute Anemia Acute CKD (chronic kidney disease) Acute Cellulitis of left leg Acute Cellulitis of right leg Acute Dehydration Acute Fall Acute Fever Acute Hypoxemia Acute Intracerebral hematoma Acute Minor head injury Acute Skin tear of right upper extremity Acute
[2018-08-18] MEDS ORDERED: oxyCODONE IR 5 MG TAB PO PRN (14:54)
[2018-08-18] MEDS ORDERED: 1/2 NS 1,000 ML IV SCH (17:00)
--- NOTE | 2018-08-18 17:04 | SOAPPROG ---
SOAP Progress Note Assessment/Plan: Assessment/Plan: h/o renal transplant: continue her IS regimen. IRMA on CKD 3: baseline Cr around 1.5 post-transplant, Cr now up to 1.8. - Will give some gentle IVFs, 1/2NS. - Will continue to monitor. - Avoid hypotension and nephrotoxins. Hyperkalemia: improving with bicarb tabs and on low K diet, will continue to monitor. Metabolic acidosis: improving on bicarb tabs, will continue to monitor. Subjective: No acute events overnight. Pt states that she is feeling better, more mobility today, no dyspnea or chest pain. Objective: Vital Signs Temp Pulse Resp BP Pulse Ox 36.7 C 63 16 141/68 H 94 08/18/18 15:12 08/18/18 15:12 08/18/18 15:12 08/18/18 15:12 08/18/18 15:12 Laboratory Results 08/17/18 10:40 08/18/18 05:40 08/17/18 08/18/18 08/19/18 05:59 05:59 05:59 Intake Total 1500 1700 Output Total 400 700 300 Balance 1100 1000 -300 PT 15.9 SEC (12.0-15.0) H 08/09/18 15:00 INR 1.25 (0.83-1.16) H 08/09/18 15:00 General: alert and oriented, no acute distress Eyes: EOMI, PERRL OP: Clear CV: RRR Resp: nonlabored respirations on RA Abd: Soft, NT/ND Ext: no edema LLE, RLE with wound vac in place Neuro: CN II-XII Grossly intact, no asterxis Psych: cooperative ICD10 Worksheet Patient Problems: Problems Problem Status Onset Abdominal wall hematoma Acute Anemia Acute CKD (chronic kidney disease) Acute Cellulitis of left leg Acute Cellulitis of right leg Acute Dehydration Acute Fall Acute Fever Acute Hypoxemia Acute Intracerebral hematoma Acute Minor head injury Acute Skin tear of right upper extremity Acute
[2018-08-18] MEDS: GABAPENTIN 100 MG CAP PO SCH (21:30)
[2018-08-19] MEDS: HEPARIN 5,000 UNIT/0.5 ML INJ SC SCH ×2 (05:39→15:48)
[2018-08-19] MEDS: SODIUM BICARBONATE 650 MG TAB PO SCH (05:39)
[2018-08-19 06:18] LABS: CREATINE KINASE < 20 IU/L (0-156)
--- NOTE | 2018-08-19 08:29 | SOAPPROG ---
SOAP Progress Note Assessment/Plan: Assessment: s/p renal transplant: continue current immunosuppression regimen of imuran/pred/ tacrolimus. To f/u Dr. Storm as outpt- I discussed with pt. Will need to check prograf level given antibiotics this week. IRMA on CKD 3: baseline Cr around 1.5 post-transplant. Cr up to 1.8, improved to 1.5 today with IVF overnight. Taking good po and denies n/v, diarrhea. Ok from our standpoint to d/c today with need for labs with our office later in week ( we will arrange) Hyperkalemia: improving with bicarb tabs and on low K diet- needs to continue these as outpt and recheck labs this week. Metabolic acidosis: improving on bicarb tabs, continue Leg wound- cellulitis with hematoma evacuation. Antibiotics per ID. Check prograf level. On po vanco given h/o C diff. I discussed with Dr. Aleksandr Greenwood MD [facility] pager [phone] 08/19/18 09:58 Subjective: Feeling well, wants to go home. Denies n/v, diarrhea, abd pain. Taking good po. Cr better. discussed need for labs and reviewed transplant meds. Objective: Vital Signs Temp Pulse Resp BP Pulse Ox 36.4 C 62 12 155/65 H 93 08/19/18 07:30 08/19/18 07:30 08/19/18 07:30 08/19/18 07:30 08/19/18 07:30 Microbiology 08/13/18 10:15 Blood Culture - Final Blood 08/13/18 10:15 Blood Culture - Final Blood Laboratory Results 08/17/18 10:40 08/19/18 05:30 08/18/18 08/19/18 08/20/18 05:59 05:59 05:59 Intake Total 1700 1500 Output Total 700 450 Balance 1000 1050 PT 15.9 SEC (12.0-15.0) H 08/09/18 15:00 INR 1.25 (0.83-1.16) H 08/09/18 15:00 Physical Exam - Physical Exam General Appearance: alert, no apparent distress, other (sitting upright) EENT: other (mmm) Neck: supple Respiratory: lungs clear Cardiac/Chest: regular rate, rhythm Abdomen: normal bowel sounds, non-tender, soft, other (no tenderness over allograft) Skin: warm/dry Extremities: other (no edema) Neuro/Psych: alert, oriented x 3 ICD10 Worksheet Patient Problems: Problems Problem Status Onset Abdominal wall hematoma Acute Anemia Acute CKD (chronic kidney disease) Acute Cellulitis of left leg Acute Cellulitis of right leg Acute Dehydration Acute Fall Acute Fever Acute Hypoxemia Acute Intracerebral hematoma Acute Minor head injury Acute Skin tear of right upper extremity Acute
--- NOTE | 2018-08-19 09:39 | WOCRNPDOC ---
WOCRN Advanced Assessment Note - Skin Integrity Problem, Advanced Assess Right Lower Lateral Leg Surgical Wound/Incision Dressing Type: Black Vac Foam (x4 (casey cleanse)), Wound Vac Dressing Description: Clean/Dry, Intact Exudate Amount: Minimal Exudate Characteristic(s): Serosanguinous Integumentary Issue Intervention: Dressing Changed Ximena Wound Tissue: Erythema (minimal to 0.5 cm ximena wound), Painful/Tender (but less so than Wed last week. ) Wound Bed Constitution: Granulation Tissue (85%), Loose Slough (15%) Wound Edges: Epithelizing, Attached Site Measurement - Head-to-Toe Length X Width X Depth (cm): 14.8x14x0.4 Skin Integrity Problem Comment: Cleaned with ns and gauze. Skin prep and drape ximena wound. 500 mg of amniofill skin tissue substitute applied to wound bed by Arlette RICO. Covered with Black foam medium simplace x 2 pieces. Vac restarted at -125 mm Hg continuous suction with no leaks noted. Next vac change due Sunday.
--- NOTE | 2018-08-19 10:29 | HOSPPROG ---
Hospitalist Progress Note Assessment/Plan: 72 yo F w infected hematoma, renal transplant * Right lower extremity cellulitis associated with infected hematoma, status post incision and drainage: Cultures from hematoma are polymicrobial including growth of Enterobacter, MRSA, and Bacillus cereus. Significance of bacillus is unclear. 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, all PIPs, and most of her MTPs; also bilateral knee pain is more chronic so may not be part of this process -cause of this is uncertain and it will be difficult to determine in the midst of an acute inflammatory infectious illness in this woman on immune suppression therapies -appearance of joints is suspicious for rheumatoid arthritis or similar illness; doubt serologies will be very helpful at this time -has responded to 1 dose of the 40 mg prednisone given yesterday with decreased pain and improved range of motion will do five days total pred (29-62-42-15-15) last day 08/20 * immunosuppression, tacrolimus, prednisone, imuran * Anemia, macrocytic, with normal B12 levels -notably more anemic and somewhat more macrocytic than she was here in June - -anemia may be worse due to her infection, or potentially due to an inflammatory illness like RA * Constipation here, multifactorial -effective relief w relistor 08/16 still w diarrhea follow- h/o cdiff noted * History of C difficile: last episode over summer, on preventive vanco here * History of ESBL producing Klebsiella pneumoniae proph: sc heparin dispo: home today > 30 minutes Subjective: cr at baseline. wound vac change today. d/w Dr Allison Objective: Vital Signs Temp Pulse Resp BP Pulse Ox 36.4 C 62 12 155/65 H 93 08/19/18 07:30 08/19/18 07:30 08/19/18 07:30 08/19/18 07:30 08/19/18 07:30 Microbiology 08/13/18 10:15 Blood Culture - Final Blood 08/13/18 10:15 Blood Culture - Final Blood Laboratory Results 08/17/18 10:40 08/19/18 05:30 08/18/18 08/19/18 08/20/18 05:59 05:59 05:59 Intake Total 1700 1500 Output Total 700 450 Balance 1000 1050 PT 15.9 SEC (12.0-15.0) H 08/09/18 15:00 INR 1.25 (0.83-1.16) H 08/09/18 15:00 - Physical Exam Constitutional: no apparent distress, appears nourished Eyes: PERRL, anicteric sclera Ears, Nose, Mouth, Throat: moist mucous membranes, hearing normal Cardiovascular: regular rate and rhythym, no murmur, rub, or gallop Respiratory: no respiratory distress, no rales or rhonchi Gastrointestinal: normoactive bowel sounds, soft, non-tender abdomen Genitourinary: no bladder fullness, No brooks in urethra Skin: warm, normal color, other (wound c/d/i) Musculoskeletal: full muscle strength Neurologic: AAOx3 ICD10 Worksheet Patient Problems: Problems Problem Status Onset Abdominal wall hematoma Acute Anemia Acute CKD (chronic kidney disease) Acute Cellulitis of left leg Acute Cellulitis of right leg Acute Dehydration Acute Fall Acute Fever Acute Hypoxemia Acute Intracerebral hematoma Acute Minor head injury Acute Skin tear of right upper extremity Acute
[2018-08-19] MEDS: CALCITRIOL 0.25 MCG CAP PO SCH (11:01)
[2018-08-19] MEDS: SERTRALINE HCL 50 MG TAB PO SCH (11:01)
[2018-08-19] MEDS: azaTHIOprine 50 MG TAB PO SCH (11:02)
[2018-08-19] MEDS: predniSONE 5 MG TAB PO SCH (11:02)
[2018-08-19] MEDS: CHOLECALCIFEROL VIT D3 2,000 UNITS TAB/CAP PO SCH (11:02)
[2018-08-19] MEDS: SENNOSIDES/DOCUSATE SODIUM TAB PO SCH (11:03)
[2018-08-19] MEDS: TACROLIMUS 1 MG CAP PO SCH (11:03)
[2018-08-19] MEDS: POLYETHYLENE GLYCOL 3350 17 GM PKT PO SCH (11:03)
[2018-08-19] MEDS: cycloSPORINE 0.05% 30 DROPERETTE/BOX EACHEYE SCH (11:04)
[2018-08-19] MEDS: DORZOLAMIDE/TIMOLOL 10 ML OPHT.BTL EACHEYE SCH (11:04)
[2018-08-19] MEDS: ERTAPENEM 0.5 GM in NS 50 ML IV SCH (11:05)
[2018-08-19] MEDS: VANCOMYCIN 125 MG/2.5 ML UDL PO SCH (11:05)
--- NOTE | 2018-08-19 11:57 | PDIAF ---
- Diagnosis Diagnosis: Right lower extremity cellulitis/infected hematoma Code Status: Full Code - Medication Management Custodial Antibiotics: Daptomycin 550 mg IV Q 48 hr, ertapenem 500 mg IV Q 24 hr Custodial Antibiotic Stop Date: 08/23/18 Additional Medication Instructions: Continue oral vancomycin 125 mg po Twice daily through 08/30/2018 (C diff prevention) Discharge Medications: electronically signed and located in the Home Medication List. PICC Care - Routine: Yes - Orders Isolation Type: Contact Isolation (MRSA) Additional Instructions: Next vac change due Sunday 08/26; black foam.. -125 mm Hg continuous suction. Do not get vac wet in shower FU 1-[address] Mejia's office for dressing change and wound check. schedule for a M, W or F. please provide supplies to patient for dressing change. - Follow Up Care Current Providers and Referrals: Meaghan Mejia MD [Medical Doctor] - Patient,NotPresent [Primary Care Provider] -
--- NOTE | 2018-08-19 13:13 | PCMIDPN ---
Assessment/Plan: Assessment/Plan: * Right lower extremity cellulitis associated with infected hematoma status post incision and drainage: Cellulitis resolved post drainage of infected hematoma and with daptomycin and ertapenem. Will complete 4 additional days of daptomycin and ertapenem which will make 10 days of therapy in total. CPK remains normal. Antibiotics are dose adjusted for renal insufficiency. * History of C difficile: Plan suppressive oral vancomycin 125 mg twice daily x1 week post completion of antibiotic therapy. * History of ESBL producing Klebsiella pneumoniae 08/19/18 13:10 Subjective: Patient with significant decrease in right lower extremity pain. Erythema has resolved. Objective: Vital Signs Temp Pulse Resp BP Pulse Ox 36.4 C 62 12 155/65 H 93 08/19/18 07:30 08/19/18 07:30 08/19/18 07:30 08/19/18 07:30 08/19/18 07:30 Microbiology 08/10/18 09:00 Gram Stain - Final Leg - Other Anaerobic Culture - Final Enterobacter Cloacae Bacillus Cereus Group MRSA 08/13/18 10:15 Blood Culture - Final Blood 08/13/18 10:15 Blood Culture - Final Blood Laboratory Results 08/17/18 10:40 08/19/18 05:30 08/18/18 08/19/18 08/20/18 05:59 05:59 05:59 Intake Total 1700 1500 Output Total 700 450 Balance 1000 1050 Daptomycin # 6 Ertapenem # 6 Oral vancomycin 125 twice daily Laboratory Tests 08/19/18 05:30 Creatine Kinase < 20 - Physical Exam General Appearance: alert, no apparent distress EENT: No scleral icterus, No thrush Respiratory: lungs clear, No respiratory distress Cardiac/Chest: regular rate, rhythm Extremities: inflammation (Wound VAC in place over right lower extremity; cellulitic area present previously has fully resolved) Abdomen: non-tender, No distended - Line/s RUE PICC Lines: No drainage, No erythema ICD10 Worksheet Patient Problems: Problems Problem Status Onset Abdominal wall hematoma Acute Anemia Acute CKD (chronic kidney disease) Acute Cellulitis of left leg Acute Cellulitis of right leg Acute Dehydration Acute Fall Acute Fever Acute Hypoxemia Acute Intracerebral hematoma Acute Minor head injury Acute Skin tear of right upper extremity Acute
--- NOTE | 2018-08-19 14:15 | PDIAF ---
- Diagnosis Diagnosis: Right lower extremity cellulitis/infected hematoma Code Status: Full Code - Medication Management Nursing Home Antibiotics: Daptomycin 550 mg IV Q 48 hr, ertapenem 500 mg IV Q 24 hr Marketing Analytics Manager Antibiotic Stop Date: 08/23/18 Additional Medication Instructions: Continue oral vancomycin 125 mg po Twice daily through 08/30/2018 (C diff prevention) Discharge Medications: electronically signed and located in the Home Medication List. PICC Care - Routine: Yes - Orders Services needed: Registered Nurse, Certified Granular Operator, Master Electrical Laboratory Technician , Physical Therapy, Occupational Therapy Isolation Type: Contact Isolation (MRSA) Additional Instructions: Next vac change due Sunday 08/26; black foam.. -125 mm Hg continuous suction. Then change MWF starting 08/26. FU at Dr. Mejia's office Sunday09/03/18 - call to make appt and set up transportation Do not get vac wet in shower - Labs/Radiology BMP Date: 08/21/18 (weekly. renal transplant patient. [facility]) - Follow Up Care Current Providers and Referrals: Meaghan Mejia MD [Medical Doctor] - 09/03/18 Patient,NotPresent [Primary Care Provider] -
--- NOTE | 2018-08-19 14:29 | GDS ---
DISCHARGE DIAGNOSES: 1. Infected hematoma of the right leg. 2. History of kidney transplant, on chronic immunosuppression. 3. Glaucoma. 4. Skin cancer. 5. Depression. 6. Recurrent urinary tract infections. 7. Obstructive sleep apnea on CPAP. 8. Restless leg syndrome. 9. Obesity. 10. Inflammatory arthritis. 11. Left upper extremity fistula. 12. Bilateral total knee arthroplasty. Please see admission history and physical by Dr. Robert Madrid. The patient presented on the 2nd after having failed outpatient management of this hematoma. She is not anticoagulated, but she was o n an aspirin. She underwent incision and drainage in the operating room. Cultures grew out MRSA sebastien illus and Enterobacter cloacae. Given multiple drug allergies, she was managed on daptomy bryan and ertapenem. The patient is seen locally by wound care. I observed the wound over the last co uple days and it is healing well. She did have some issues with inflammatory arthritis that responde d well to a couple doses of oral prednisone. Her creatinine was a little bit labile and actually elias t up to 1.8 a couple of times during this hospitalization and then came down to her baseline of 1.5. Sodium bicarbonate was added given a fairly persistent hyperkalemia. [facility] /[id number]/MODL
--- NOTE | 2018-08-19 15:17 | ASDISCHSUM ---
Discharge Information Plan Status:SNF Medically Cleared to Leave:08/18/2018 Discharge Date:08/18/2018 CM D/C Disposition: ADT D/C Disposition:Home, Routine, Self-Care Projected Discharge Date:08/19/2018 11:00 AM Transportation at D/C: Discharge Delay Reason: Follow-Up Date:08/19/2018 11:00 AM Discharge Slot: Final Diagnosis: Placement Information Referral Type:*Detention/SNF Referral ID:[id number] Provider Name:[facility] Address 1:[address] Address 2: City:[place] Selection Factors: State:[place] Patient Contact Information Contact Name:EMI Relationship:Son Address:[address] [id number] City:[place] Alternate Phone: State/Zip Code:[place] [address] Email: Financial Information Financial Class:HMO and PPO Plans Primary Plan Desc:[facility] Primary Plan Number:[id number] Secondary Plan Desc: Secondary Plan Number: Assessment Information LACE LACE Length of stay for Answers: 7-13 days current admission Acuity / Level of Answers: Yes Care: Did the patient have an inpatient admission? Comorbidities - select Answers: Moderate or severe liver all that apply or renal disease Other Notes: Glaucoma # of Emergency department Answers: 3-4 visits in the last 6 months Social determinants Answers: Mental health diagnosis (anxiety, depression, pers onality disorders, etc.) Score: 19 Date Signed: 08/16/2018 02:17 PM Electronically Signed By:Liudmila Rush RN [facility] Progress Note CM Note CM Note Notes: Pt is in the [facility] program, 2 weeks ago she bumped her leg on a coffee table and has not healed. She was taken to the OR and a wound vac was placed. Pt will discharge to [facility] on Sunday, Bessie at notified and they have a wound vac ready. DC Plan: [facility] Date Signed: 08/10/2018 03:44 PM Electronically Signed By:Liudmila Rush RN [facility] Progress Note CM Note CM Note Notes: CM spoke to Dr. Ngo about d/c POC. Pt spiked a fever last night. Pt's kidney functioning is high. Renal has been consulted. CM provided updates to Lian at [facility] and to [facility]. CM to follow. Plan: [facility] Signed: 08/13/2018 10:22 AM Electronically Signed By:SAULO Wang [facility] Progress Note CM Note NIGEL Note Notes: Spoke w/RN, pt will be here through the weekend. Wound vac changed today, Bessie at [facility] and Lian ([phone]) at [facility] notified. DC Plan: [facility] Date Signed: 08/16/2018 02:25 PM Electronically Signed By:Liudmila Rush RN Case Management Discharge Plan Note Case Management Discharge Discharge Order Complete? Answers: Yes Patient to Obtain Answers: Other Notes: [facility] Medications Transportation Arranged Answers: Other Notes: [facility] W/C Transport will Pick (Date 08/19/2018 05:00 PM & Time) EMTALA Complete Answers: No Case Management Transport Answers: No Form Complete Faxed Final Orders Answers: Yes Agency/Facility Transfer Answers: Yes Report Printed & Faxed to Receiving Agency Family Notified Answers: No Discharge Comments Notes: CM spoke to TRISHA Hannah regarding d/c POC. Arlette is requesting that the wound vac is brought over from [facility] and for it to be attached to pt before she discharges. Pt is being discharged today to [facility]. CM notified Doreen Noble w/ [facility]. CM sent dc orders to [facility] and to [facility]. CM provided ANGELO Santana w/ phone number to give report. CM available for changes. Plan: [facility] Date Signed: 08/19/2018 03:15 PM Electronically Signed By:SAULO Wang Intervention Information Intervention Type:*Incorrect Registration Date of Service:08/09/2018 03:28 PM Patient Type:Observation Staff Member:Ericka Bhat Hours: Discipline: Severity: Comment:
[2018-08-19] MEDS: DAPTOmycin 550 MG in NS 100 ML IV SCH (15:49)
[2018-08-19] MEDS: ACETAMINOPHEN 325 MG TAB PO PRN (15:55)
[2018-08-19 16:11] VITALS: BP 142/61
--- NOTE | 2018-08-19 18:05 | SOAPPROG ---
SOAP Progress Note Assessment/Plan: Assessment/Plan: 72yo F POD#4 s/p debridement skin/soft tissue and evacuation large RLE traumatic hematoma. IRMA, s/p kidney transplant on immunosuppression Wound vac change with amniofill in base of wound - next vac change 1 week Plan for skin graft after thanksgiving IV antibiotics - enterobacter, MRSA - ID following Appreciate hospitalists, nephrology Dispo: DC to [facility]. FU 2 weeks S: leg less painful, less swollen and less red. Great improvement. O: Lying in bed, comfortable, NAD No increased WOB RLE edema 1+ Erythema significantly improved Min tender to palpation Wound bed with healthy granulation. No debridement required, 100% healthy granulation tissue. Applied amniofill 500mg [id number] exp 12/06/22 followed by wound vac Objective: Vital Signs Temp Pulse Resp BP Pulse Ox 36.6 C 65 12 142/61 H 94 08/19/18 16:00 08/19/18 16:00 08/19/18 16:00 08/19/18 16:00 08/19/18 16:00 Microbiology 08/10/18 09:00 Gram Stain - Final Leg - Other Anaerobic Culture - Final Enterobacter Cloacae Bacillus Cereus Group MRSA 08/13/18 10:15 Blood Culture - Final Blood 08/13/18 10:15 Blood Culture - Final Blood Laboratory Results 08/17/18 10:40 08/19/18 05:30 08/18/18 08/19/18 08/20/18 05:59 05:59 05:59 Intake Total 1700 1500 250 Output Total 700 450 500 Balance 1000 1050 -250 PT 15.9 SEC (12.0-15.0) H 08/09/18 15:00 INR 1.25 (0.83-1.16) H 08/09/18 15:00 ICD10 Worksheet Patient Problems: Problems Problem Status Onset Abdominal wall hematoma Acute Anemia Acute CKD (chronic kidney disease) Acute Cellulitis of left leg Acute Cellulitis of right leg Acute Dehydration Acute Fall Acute Fever Acute Hypoxemia Acute Intracerebral hematoma Acute Minor head injury Acute Skin tear of right upper extremity Acute
[2018-08-19] MEDS ORDERED: SODIUM BICARBONATE 650 MG TAB PO SCH (21:00)
== END 2018-08-19 17:29 | DRG 580 ==
LOC: F3E 12:52 → OBSVTOIN 14:03
PROVIDERS: ADMIT Student in an Organized Health Care Education/Training Program; ATTEND Student in an Organized Health Care Education/Training Program
PROC: 0KCS0ZZ Extirpation of Matter from Right Lower Leg Muscle, Open Approach (ICD-10-PCS; principal; 2018-08-10 08:00)
PROC: 0JDN0ZZ Extraction of Right Lower Leg Subcutaneous Tissue and Fascia, Open Approach (ICD-10-PCS; principal; 2018-08-10 08:00)
PROC: 02HV33Z Insertion of Infusion Device into Superior Vena Cava, Percutaneous Approach (ICD-10-PCS; 2018-08-17)
DX: S80.11XA Contusion of right lower leg, initial encounter (principal); L03.115 Cellulitis of right lower limb; N17.9 Acute kidney failure, unspecified; I12.9 Hypertensive chronic kidney disease with stage 1 through stage 4 chronic kidney disease, or unspecified chronic kidney disease; N18.3 Chronic kidney disease, stage 3 (moderate); B95.62 Methicillin resistant Staphylococcus aureus infection as the cause of diseases classified elsewhere; M13.0 Polyarthritis, unspecified; K59.00 Constipation, unspecified; E87.5 Hyperkalemia; E87.2 Acidosis; G25.81 Restless legs syndrome; N25.81 Secondary hyperparathyroidism of renal origin; G47.33 Obstructive sleep apnea (adult) (pediatric); G47.00 Insomnia, unspecified; H35.30 Unspecified macular degeneration; Z94.0 Kidney transplant status; Z98.84 Bariatric surgery status; Z87.891 Personal history of nicotine dependence; Z96.653 Presence of artificial knee joint, bilateral
CPT/HCPCS: 97110-GP; 97116-GP; 97162-GP; 97165-GO; 97530-GO; 97530-GP; 97535-GO; C1751; G8978-GP-CL; G8979-GP-CI; G8987-GO-CL; G8988-GO-CI; J0690; J0696; J0878; J1100; J1170; J1335; J1644; J2001; J2212; J2405; J2704; J3010; J7500; J7507; J7512

== ENCOUNTER 2018-09-17 13:21 | Inpatient (IN) | payer MEDICAID, OTHER ==
[2018-09-17] MEDS ORDERED: ceFAZolin 2 GM/DEXTROSE 100 ML IV ONE (13:25)
--- NOTE | 2018-09-17 14:21 | PDHPUP ---
History & Physical Update H&P update statement: This history and physical update is based on an assessment of the patient which was completed after admission or registration (within 24 hours), but prior to the surgery/procedure. H&P update: H&P reviewed & patient examined, no change in patient's condition since H&P completed
[2018-09-17] MEDS ORDERED: THROMBIN (BOVINE) 20,000 UNIT SPRAY TP ONE (14:33)
[2018-09-17] MEDS ORDERED: MINERAL OIL 10 ML VIAL ONE (14:33)
[2018-09-17] MEDS ORDERED: EPINEPHrine 1 MG/ML INJ ONE (14:34)
[2018-09-17] MEDS ORDERED: DEXAMETHASONE 4 MG/ML VIAL ONE ×2 (14:39→14:40)
[2018-09-17] MEDS ORDERED: LIDOCAINE 2% 100 MG/5 ML SYR ONE (14:39)
[2018-09-17] MEDS ORDERED: fentaNYL 250 MCG/5 ML INJ ONE (14:39)
[2018-09-17] MEDS ORDERED: ONDANSETRON 4 MG/2 ML VIAL ONE (14:39)
[2018-09-17] MEDS ORDERED: ROCURONIUM 50 MG/5 ML VIAL ONE (14:39)
[2018-09-17] MEDS ORDERED: PROPOFOL 200 MG/20 ML VIAL ONE (14:39)
[2018-09-17] MEDS ORDERED: MIDAZOLAM 2 MG/2 ML VIAL ONE (14:55)
[2018-09-17] MEDS ORDERED: MIDAZOLAM 2 MG/2 ML VIAL IVP ONE (14:59)
[2018-09-17] MEDS ORDERED: MEPERIDINE 25 MG/0.5 ML AMP IVP PRN (15:00)
[2018-09-17] MEDS ORDERED: PROMETHAZINE HCL 25 MG/ML INJ IVP PRN (15:00)
[2018-09-17] MEDS ORDERED: fentaNYL 100 MCG/2 ML INJ IVP PRN (15:00)
[2018-09-17] MEDS ORDERED: NALOXONE HCL 0.4 MG/ML INJ IVP PRN (15:00)
[2018-09-17] MEDS ORDERED: METOCLOPRAMIDE 10 MG/2 ML VIAL IVP PRN (15:00)
[2018-09-17] MEDS ORDERED: HYDROmorphONE/DILAUDID 2 MG/ML INJ IVP PRN (15:00)
[2018-09-17] MEDS ORDERED: PHENYLEPHRINE HCL 100 MCG/ML SYR IVP PRN (15:00)
[2018-09-17] MEDS ORDERED: ONDANSETRON 4 MG/2 ML VIAL IVP PRN (15:00)
--- NOTE | 2018-09-17 15:02 | PDANEPAE ---
ANE Past Medical History - Cardiovascular History Hx Hypertension: Yes Hx Arrhythmias: No Hx Chest Pain: No Hx Coronary Artery / Peripheral Vascular Disease: No Hx CHF / Valvular Disease: No Hx Palpitations: No Cardiovascular History Comment: murmur - Pulmonary History Hx COPD: No Hx Asthma/Reactive Airway Disease: No Hx Recent Upper Respiratory Infection: No Hx Oxygen in Use at Home: No Hx Sleep Apnea: Yes Sleep Apnea Screening Result - Last Documented: Positive Pulmonary History Comment: recent pneumaonia - Neurologic History Hx Cerebrovascular Accident: No Hx Seizures: No Hx Dementia: No Neurologic History Comment: recent falls, hit head - Endocrine History Hx Diabetes: No Endocrine History Comment: pt denies diabetes - Renal History Hx Renal Disorders: Yes Renal History Comment: transplant. 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 c-diff hx, e-coli 05-11-18. chronic pain earaches, headaches, anemia, - Chronic Pain History Chronic Pain: Yes (Ear ache/ Head ache) - Surgical History Prior Surgeries: bilat TKS. gastric bypass, hysterectomy, appy, renal transplant ANE Review of Systems Review of Systems: - Exercise capacity METS (RN): 1 METS ANE Patient History - Allergies Allergies/Adverse Reactions: gluten Allergy (Verified 08/09/18 13:32) metronidazole [From Flagyl] Allergy (Verified 07/30/18 20:18) Rash sulfamethoxazole [From Bactrim] Allergy (Verified 07/30/18 20:18) Rash trimethoprim [From Bactrim] Allergy (Verified 07/30/18 20:18) Rash wheat Allergy (Verified 07/30/18 20:18) - Home Medications Home Medications: azaTHIOprine [Imuran 50 mg (*)] 50 mg PO DAILY 03/02/18 [Last Taken 08/09/18] predniSONE 5 mg PO DAILY 03/02/18 [Last Taken 08/09/18] traZODone [traZODone 150MG (*)] 150 mg PO HS 03/02/18 [Last Taken 08/08/18] Bumetanide [Bumex (*)] 1 mg PO BID 05/11/18 [Last Taken 08/09/18] C/E/Zn/Cu/OM3/DHA/EPA/LUT/ZEAX [Preservision Areds 2 Softgel] 1 each PO DAILY [Last Taken 08/09/18] Cholecalciferol (Vitamin D3) [Vitamin D3] 2,000 unit PO DAILY 05/11/18 [Last Taken 08/09/18] Tacrolimus [Prograf] 3 mg PO BID 05/11/18 [Last Taken 08/09/18] Dorzolamide/Timolol [Cosopt (*)] 1 drops EACHEYE BID 05/12/18 [Last Taken ] cycloSPORINE 0.05% [Restasis Opht Drops(*)] 1 drop EACHEYE BID 05/12/18 [Last Taken 08/09/18] Calcitriol [Calcitriol (*)] 0.25 mcg PO Q2D 08/09/18 [Last Taken 08/09/18] Carvedilol [Coreg (*)] 12.5 mg PO BIDMEAL 08/09/18 [Last Taken 08/09/18] Gabapentin [Neurontin 100 MG (*)] 150 mg PO BID 08/09/18 [Last Taken 08/08/18] Sertraline HCl [Zoloft 50mg (*)] 75 mg PO DAILY 08/09/18 [Last Taken 08/09/18] Acetaminophen [Tylenol 325mg (*)] 650 mg PO Q6HRS 09/17/18 [Last Taken Unknown] Carboxymethylcellulose 1% [Refresh Celluvisc (*)] 1 drop EACHEYE QID 09/17/18 [ Last Taken Unknown] Diclofenac Sodium 1% [Voltaren Gel (*)] 1 gabriel TP Q8HRS PRN 09/17/18 [Last Taken Unknown] Docusate Sodium [Colace 100 MG (*)] 100 mg PO BID PRN 09/17/18 [Last Taken Unknown] morphINE IR [morphINE IR 15 mg (*)] 7.5 mg PO Q3HRS PRN 09/17/18 [Last Taken Unknown] - NPO status NPO Since - Liquids (Date): 09/16/18 NPO Since - Liquids (Time): 21:30 NPO Since - Solids (Date): 09/16/18 NPO Since - Solids (Time): 19:30 - Smoking Hx Smoking Status: Former smoker - Family Anes Hx Family Hx Anesthesia Complications: none ANE Labs/Vital Signs - Vital Signs Blood Pressure: 120/54 Heart Rate: 57 Respiratory Rate: 10 O2 Sat (%): 92 Height: 172.72 cm Weight: 94.347 kg ANE Physical Exam - Airway Neck exam: FROM Mallampati Score: Class 1 Mouth exam: poor dentition - Pulmonary Pulmonary: no respiratory distress, no rales or rhonchi, clear to auscultation - Cardiovascular Cardiovascular: regular rate and rhythym, no murmur, rub, or gallop - ASA Status ASA Status: III ANE Anesthesia Plan Anesthesia Plan: GA w LMA
--- NOTE | 2018-09-17 15:25 | PDGENHP ---
History and Physical - Chief Complaint Here for Skin Graft - History of Present Illness This is a 72-year-old female with past medical history significant for end- stage renal disease status post transplant on chronic immunosuppressive therapy with, depression, recurring urinary tract infections, hypertension, DVT, restless legs syndrome, insomnia, obstructive sleep apnea he was last treated at [facility] 06/21 through 06/24 2018 for treatment of a right lower extremity cellulitis. Patient was seen today in preop awaiting to undergo skin graft procedure to her right leg. Patient states that at [facility] they have been decreasing her pain medication. She has been having some pain in her right lower leg. She denies any fevers or chills. She denies any acute medical complaints. During her last hospitalization she developed acute on chronic renal failure. I have been asked to co manage Mrs. Wiggins by her surgeon Dr. Meaghan Mejia given her multiple medical comorbidities. History Information - Allergies/Home Medication List Allergies/Adverse Reactions: gluten Allergy (Verified 08/09/18 13:32) metronidazole [From Flagyl] Allergy (Verified 07/30/18 20:18) Rash sulfamethoxazole [From Bactrim] Allergy (Verified 07/30/18 20:18) Rash trimethoprim [From Bactrim] Allergy (Verified 07/30/18 20:18) Rash wheat Allergy (Verified 07/30/18 20:18) Home Medications: azaTHIOprine [Imuran 50 mg (*)] 50 mg PO DAILY 03/02/18 [Last Taken 08/09/18] predniSONE 5 mg PO DAILY 03/02/18 [Last Taken 08/09/18] traZODone [traZODone 150MG (*)] 150 mg PO HS 03/02/18 [Last Taken 08/08/18] Bumetanide [Bumex (*)] 1 mg PO BID 05/11/18 [Last Taken 08/09/18] C/E/Zn/Cu/OM3/DHA/EPA/LUT/ZEAX [Preservision Areds 2 Softgel] 1 each PO DAILY [Last Taken 08/09/18] Cholecalciferol (Vitamin D3) [Vitamin D3] 2,000 unit PO DAILY 05/11/18 [Last Taken 08/09/18] Tacrolimus [Prograf] 3 mg PO BID 05/11/18 [Last Taken 08/09/18] Dorzolamide/Timolol [Cosopt (*)] 1 drops EACHEYE BID 05/12/18 [Last Taken ] cycloSPORINE 0.05% [Restasis Opht Drops(*)] 1 drop EACHEYE BID 05/12/18 [Last Taken 08/09/18] Calcitriol [Calcitriol (*)] 0.25 mcg PO Q2D 08/09/18 [Last Taken 08/09/18] Carvedilol [Coreg (*)] 12.5 mg PO BIDMEAL 08/09/18 [Last Taken 08/09/18] Gabapentin [Neurontin 100 MG (*)] 150 mg PO BID 08/09/18 [Last Taken 08/08/18] Sertraline HCl [Zoloft 50mg (*)] 75 mg PO DAILY 08/09/18 [Last Taken 08/09/18] Acetaminophen [Tylenol 325mg (*)] 650 mg PO Q6HRS 09/17/18 [Last Taken Unknown] Carboxymethylcellulose 1% [Refresh Celluvisc (*)] 1 drop EACHEYE QID 09/17/18 [ Last Taken Unknown] Diclofenac Sodium 1% [Voltaren Gel (*)] 1 gabriel TP Q8HRS PRN 09/17/18 [Last Taken Unknown] Docusate Sodium [Colace 100 MG (*)] 100 mg PO BID PRN 09/17/18 [Last Taken Unknown] morphINE IR [morphINE IR 15 mg (*)] 7.5 mg PO Q3HRS PRN 09/17/18 [Last Taken Unknown] I have personally reviewed and updated: family history, medical history, social history, surgical history - Past Medical History hypertension Additional medical history: CKD s/p transplant on chronic immunosuppressive therapy. Secondary hypoparathyroidism. Glaucoma. Skin cancer. Depression. Recurrent UTI most recently 05/27/2018 hospitalization for UTI and bacteremia. E coli/ESBL. JOSE on CPAP at [facility]. Restless leg syndrome. Insomnia. Obesity ( BMI 31.9) status post gastric bypass. Chronic non infectious diarrhea with a remote history of C diff. - Surgical History Additional surgical history: Renal transplant. Left upper extremity fistula. History peritoneal dialysis catheter. Bilateral TKA. Hysterectomy. Appendectomy. Gastric bypass. Bilateral cataract extraction with lens placement - Family History Additional family history: Denies family hx of kidney disease - Social History Smoking Status: Former smoker Additional social history: Patient is from [place]. 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 Patient utilizes a cane occasionally a walker for mobilization. She wears CPAP at . Cor status is full Review of Systems Review of Systems: ROS: 10pt was reviewed & negative except for what was stated in HPI & below Physical Exam Physical Exam: Temp Pulse Resp BP Pulse Ox 36.8 C 57 L 10 L 120/54 L 92 09/17/18 14:44 09/17/18 15:02 09/17/18 15:02 09/17/18 15:02 09/17/18 15:02 Constitutional: no apparent distress, appears nourished, not in pain Eyes: PERRL, anicteric sclera, EOMI Ears, Nose, Mouth, Throat: moist mucous membranes, hearing normal, ears appear normal, no oral mucosal ulcers Cardiovascular: regular rate and rhythym, no murmur, rub, or gallop, No edema Respiratory: no respiratory distress, no rales or rhonchi, clear to auscultation Gastrointestinal: normoactive bowel sounds, soft, non-tender abdomen, no palpable masses Genitourinary: no bladder fullness, no bladder tenderness Skin: warm, normal color, no rashes or abrasions, no fluctuance, no induration, other (Right leg wound is dressed with a clean dry dressing), No mottled Musculoskeletal: full muscle strength, no muscle tenderness, normal joint ROM, no joint effusions Neurologic: AAOx3, CN II-XII Intact, No facial droop Psychiatric: interacting appropriately, not anxious, not encephalopathic, thought process linear Lymph, Heme, Immunologic: no cervical LAD, no supraclavicular LAD Assessment & Plan Assessment: This is a 72-year-old female scheduled to undergo right lower extremity skin graft with: # CKD status post transplant on chronic immunosuppressive therapy Plan: Monitor renal function daily # immune suppression due to above with history of MRSA and ESBL E coli bacteremia Plan: Monitor for signs symptoms of infection # Obstructive sleep apnea Plan: Continue CPAP # anemia of chronic disease (chronic) Plan: Will obtain a CBC and monitor # essential hypertension Plan: Monitor blood pressure and continue medications # restless leg syndrome Plan: Continue gabapentin (renal dosing) # depression Plan: Continue home medications # history of DVT not on anticoagulation Plan: Start DVT prophylaxis postoperatively
[2018-09-17] MEDS ORDERED: DICLOFENAC SODIUM 1% 100 GM GEL TP PRN (15:33)
[2018-09-17] MEDS ORDERED: DOCUSATE SODIUM 100 MG CAP PO PRN (15:33)
[2018-09-17] MEDS ORDERED: ePHEDrine SULFATE 25 MG/5 ML SYR ONE (15:41)
--- NOTE | 2018-09-17 16:12 | POSTOPPROG ---
Post Op Note Date of Operation: 09/17/18 Surgeon: Meaghan Mejia Chemistry Technician: scot Anesthesiologist: rocael Anesthesia: GET(General Endotracheal) Pre-op Diagnosis: traumatic wound RLE Post-op Diagnosis: same Indication: 72 yo with traumatic wound rle Procedure: debride and stsg Findings: wound measures 15x13 Inf/Abcess present in the surg proc area at time of surgery?: No EBL: Minimal Drains: Wound Vac
--- NOTE | 2018-09-17 16:59 | GOP ---
DATE OF OPERATION: 09/17/2018 SURGEON: Meaghan Mejia MD PRE ALGEBRA TEACHER: Arlette Patel, JOHN ANESTHESIA: General. ANESTHESIOLOGIST: Dr. Robles PREOPERATIVE DIAGNOSIS: Right lower extremity traumatic wound. POSTOPERATIVE DIAGNOSIS: Right lower extremity traumatic wound. PROCEDURE PERFORMED: Debridement skin, soft tissue, right lower extremity to the level of subcutaneous tissue 15 x 13 x 0.2 cm and split-thickness skin graft. FINDINGS: Wound measures 15 x 13 x 0.2 cm. SPECIMENS: None. ESTIMATED BLOOD LOSS: 5 cc. INDICATIONS: The patient is a 72-year-old woman who sustained an injury to her right lower extremity. I debrided this and placed a wound VAC. She is ready for skin grafting. DESCRIPTION OF PROCEDURE: Patient was brought into the operating room, placed supine on the table, and general anesthesia was administered. Her right lower extremity was prepped with Betadine and draped in the usual sterile fashion. I non-selectively debrided the wound on the right lower extremity. It measures 15 x 13 x 0.2 cm. I took a split-thickness skin graft at1/43586mc of an inch from her right thigh I performed hand pie crusting and stapled this into place on the right lower extremity. An epinephrine-soaked sponge was placed on the right thigh. Adaptic Touch, followed by wound VAC on the right lower extremity over the graft. Hemostasis achieved with electrocautery on the right thigh. Mepilex transfer, ABD, and Tegaderm applied. She was awakened in the operating room, extubated, transferred to PACU in stable condition. /[id number]/MODL MTDD
[2018-09-17] MEDS: CARBOXYMETHYLCELLULOSE 1% 0.4 ML DROPERETTE EACHEYE SCH ×2 (19:02→20:56)
[2018-09-17] MEDS: ACETAMINOPHEN 325 MG TAB PO SCH ×2 (19:03→23:37)
[2018-09-17] MEDS: CARVEDILOL 6.25 MG TAB PO SCH (19:04)
[2018-09-17 19:40] LABS: PLATELET COUNT 209 10^3/uL (150-400)
[2018-09-17] MEDS: cycloSPORINE 0.05% 30 DROPERETTE/BOX EACHEYE SCH (20:55)
[2018-09-17] MEDS: DORZOLAMIDE/TIMOLOL 10 ML OPHT.BTL EACHEYE SCH (20:55)
[2018-09-17] MEDS: TACROLIMUS 1 MG CAP PO SCH (20:56)
[2018-09-17] MEDS: BUMETANIDE 1 MG TAB PO SCH (20:56)
[2018-09-17] MEDS: GABAPENTIN 100 MG CAP PO SCH (20:56)
[2018-09-18] MEDS: CARBOXYMETHYLCELLULOSE 1% 0.4 ML DROPERETTE EACHEYE SCH ×5 (05:01→20:19)
[2018-09-18] MEDS: ACETAMINOPHEN 325 MG TAB PO SCH ×3 (05:01→18:27)
[2018-09-18 06:10] LABS: PLATELET COUNT 233 10^3/uL (150-400)
--- NOTE | 2018-09-18 08:40 | SOAPPROG ---
SOAP Progress Note Assessment/Plan: Assessment/Plan: 72yo F POD#1 s/p STSG RLE originally traumatic wound. Multiple comorbidities including kidney transplant on immunosuppression Change donor site dressing PRN - mepilex transfer, ABD, tegaderm Wound vac continuous without change x 5 days Appreciate hospitalist management of comorbidities Dispo: will remain inpatient x 5 days for wound vac therapy before returning to [facility] Seen with Dr. diaz S: no complaints this am O: laying in bed, comfortable, NAD No increased WOB RLE wound vac intact to suction RLE thigh donor site dressing intact Objective: Vital Signs Temp Pulse Resp BP Pulse Ox 36.4 C 62 12 140/83 H 94 09/18/18 07:38 09/18/18 07:38 09/18/18 07:38 09/18/18 07:38 09/18/18 07:38 Laboratory Results 09/18/18 05:18 09/18/18 05:18 09/17/18 09/18/18 09/19/18 05:59 05:59 05:59 Intake Total 890 250 Output Total 1010 Balance -120 250 ICD10 Worksheet Patient Problems: Problems Problem Status Onset Abdominal wall hematoma Acute Anemia Acute CKD (chronic kidney disease) Acute Cellulitis of left leg Acute Cellulitis of right leg Acute Dehydration Acute Fall Acute Fever Acute Hypoxemia Acute Intracerebral hematoma Acute Minor head injury Acute Skin tear of right upper extremity Acute
[2018-09-18] MEDS: CHOLECALCIFEROL VIT D3 2,000 UNITS TAB/CAP PO SCH (08:42)
[2018-09-18] MEDS: BUMETANIDE 1 MG TAB PO SCH ×2 (08:42→20:20)
[2018-09-18] MEDS: TACROLIMUS 1 MG CAP PO SCH ×2 (08:42→20:40)
[2018-09-18] MEDS: SERTRALINE HCL 50 MG TAB PO SCH (08:43)
[2018-09-18] MEDS: PRESERVISION AREDS2 FORMULA EYE VIT 1 EACH PO SCH (08:43)
[2018-09-18] MEDS: predniSONE 5 MG TAB PO SCH (08:43)
[2018-09-18] MEDS: CARVEDILOL 6.25 MG TAB PO SCH ×2 (08:43→18:40)
[2018-09-18] MEDS: DORZOLAMIDE/TIMOLOL 10 ML OPHT.BTL EACHEYE SCH ×2 (08:44→20:23)
[2018-09-18] MEDS: cycloSPORINE 0.05% 30 DROPERETTE/BOX EACHEYE SCH ×2 (08:44→20:22)
[2018-09-18] MEDS: POLYETHYLENE GLYCOL 3350 17 GM PKT PO SCH (08:45)
[2018-09-18] MEDS: azaTHIOprine 50 MG TAB PO SCH (09:27)
--- NOTE | 2018-09-18 09:41 | HOSPPROG ---
Hospitalist Progress Note Assessment/Plan: This is a 72-year-old female who has undergone right lower extremity skin graft. Chart reviewed. # CKD status post transplant on chronic immunosuppressive therapy -Monitor renal function daily -Cr 1.6, stable # immune suppression due to above with history of MRSA and ESBL E coli bacteremia -Monitor for signs symptoms of infection -doing well # Obstructive sleep apnea -Continue CPAP # anemia of chronic disease (chronic) -Stable # essential hypertension -Monitor blood pressure and continue medications # restless leg syndrome -Continue gabapentin (renal dosing) # depression -Continue home medications # history of DVT not on anticoagulation - DVT prophylaxis postoperatively #Dispo -unclear -needs close monitoring in hospital Subjective: Feeling well. No pain currently. No issues. Objective: Vital Signs Temp Pulse Resp BP Pulse Ox 36.4 C 62 12 140/83 H 94 09/18/18 07:38 09/18/18 08:43 09/18/18 07:38 09/18/18 08:43 09/18/18 07:38 Laboratory Results 09/18/18 05:18 09/18/18 05:18 09/17/18 09/18/18 09/19/18 05:59 05:59 05:59 Intake Total 890 250 Output Total 1010 Balance -120 250 - Physical Exam Constitutional: appears nourished, not in pain, chronically ill appearing Eyes: PERRL, anicteric sclera, EOMI Ears, Nose, Mouth, Throat: moist mucous membranes, hearing normal, ears appear normal Cardiovascular: No JVD, No tachycardia, No edema Respiratory: no respiratory distress, no rales or rhonchi, reduced air movement Gastrointestinal: normoactive bowel sounds, No tenderness, No ascites Skin: warm, no fluctuance, No normal color Musculoskeletal: pain with ROM, muscular tenderness, abnormal gait, generalized weakness Neurologic: AAOx3 Psychiatric: interacting appropriately, not anxious, not encephalopathic, thought process linear ICD10 Worksheet Patient Problems: Problems Problem Status Onset Intracerebral hematoma Acute Fall Acute Abdominal wall hematoma Acute CKD (chronic kidney disease) Acute Dehydration Acute Anemia Acute Cellulitis of left leg Acute Hypoxemia Acute Fever Acute Cellulitis of right leg Acute Skin tear of right upper extremity Acute Minor head injury Acute
--- NOTE | 2018-09-18 10:04 | ASMTCMCOM ---
CM Note CM Note Notes: CM spoke to ANGELO Rizzo regarding d/c POC. Pt is a 72 y/o female admitted for a planned surgery w/ Dr. Mejia. Pt received a skin graph. Pt will have a wound vac on for the next 5 days inpatient. Pt currently getting rehab at [facility]. Pt is a [facility] member. CM spoke w/ Ivory w/ [facility] and confirmed the plan for her to return back to [facility]. Pt lives at [facility]. Updates sent to [facility] and [facility]. CM to follow. Date Signed: 09/18/2018 10:03 AM Electronically Signed By:SAULO Wang
--- NOTE | 2018-09-18 10:16 | PDMN ---
Medical Necessity Medical necessity: Pt meets IP criteria as of 10/18/2017 per and [facility] ( wound and skin management); est los > 2 mn for skin graft d/t infected hematoma of R leg in a chronically immunosuppressed pt; requiring serial labs, IV ABX, pain management, wound vac, and therapies. Comorbid advanced age, ESRD post transplant, DVT, and HTN.
[2018-09-18] MEDS: GABAPENTIN 100 MG CAP PO SCH (20:18)
[2018-09-19] MEDS: ACETAMINOPHEN 325 MG TAB PO SCH ×4 (00:16→17:37)
[2018-09-19] MEDS: CARBOXYMETHYLCELLULOSE 1% 0.4 ML DROPERETTE EACHEYE SCH ×4 (05:44→20:21)
--- NOTE | 2018-09-19 06:27 | POSTANESTH ---
Post Anesthetic Evaluation Cardiovascular Status: Normal, Stable Respiratory Status: Normal, Stable Level of Consciousness/Mental Status: Can Participate in Eval Pain Control: Adequate, Prn Tx Ordered Nausea/Vomiting Control: Adequate, Prn Tx Ordered Complications Possibly Related to Anesthesia: None Noted
--- NOTE | 2018-09-19 08:10 | SOAPPROG ---
SOAP Progress Note Assessment/Plan: Assessment: POD # 2 s/p stsg to traumatic wound RLE Donor site: Change mepilex transfer and ABD and tegaderm prn Graft site: Vac in place until Sunday and then can discharge S: Sleeping, open eyes Donor site dressing is dry Wound vac to suction Plan: 09/19/18 08:09 Objective: Vital Signs Temp Pulse Resp BP Pulse Ox 36.7 C 50 L 17 132/60 H 95 09/19/18 04:00 09/19/18 04:00 09/19/18 04:00 09/19/18 04:00 09/19/18 04:00 Laboratory Results 09/18/18 05:18 09/18/18 05:18 09/18/18 09/19/18 09/20/18 05:59 05:59 05:59 Intake Total 890 1780 Output Total 1010 Balance -120 1780 ICD10 Worksheet Patient Problems: Problems Problem Status Onset Abdominal wall hematoma Acute Anemia Acute CKD (chronic kidney disease) Acute Cellulitis of left leg Acute Cellulitis of right leg Acute Dehydration Acute Fall Acute Fever Acute Hypoxemia Acute Intracerebral hematoma Acute Minor head injury Acute Skin tear of right upper extremity Acute
[2018-09-19] MEDS: PRESERVISION AREDS2 FORMULA EYE VIT 1 EACH PO SCH (09:47)
[2018-09-19] MEDS: CALCITRIOL 0.25 MCG CAP PO SCH (09:47)
[2018-09-19] MEDS: TACROLIMUS 1 MG CAP PO SCH ×2 (09:47→20:19)
[2018-09-19] MEDS: predniSONE 5 MG TAB PO SCH (09:48)
[2018-09-19] MEDS: CHOLECALCIFEROL VIT D3 2,000 UNITS TAB/CAP PO SCH (09:48)
[2018-09-19] MEDS: azaTHIOprine 50 MG TAB PO SCH (09:48)
[2018-09-19] MEDS: SERTRALINE HCL 50 MG TAB PO SCH (09:48)
[2018-09-19] MEDS: DORZOLAMIDE/TIMOLOL 10 ML OPHT.BTL EACHEYE SCH ×2 (09:49→20:20)
[2018-09-19] MEDS: cycloSPORINE 0.05% 30 DROPERETTE/BOX EACHEYE SCH ×2 (09:49→20:20)
[2018-09-19] MEDS: CARVEDILOL 6.25 MG TAB PO SCH ×2 (10:02→17:37)
[2018-09-19] MEDS: BUMETANIDE 1 MG TAB PO SCH (10:02)
[2018-09-19] MEDS: POLYETHYLENE GLYCOL 3350 17 GM PKT PO SCH (10:08)
--- NOTE | 2018-09-19 13:42 | HOSPPROG ---
Hospitalist Progress Note Assessment/Plan: This is a 72-year-old female who has undergone right lower extremity skin graft. # CKD status post transplant on chronic immunosuppressive therapy -Monitor renal function -Cr 1.6, stable -labs in am # immune suppression due to above with history of MRSA and ESBL E coli bacteremia -Monitor for signs symptoms of infection -doing well # Obstructive sleep apnea -Continue CPAP # anemia of chronic disease (chronic) -Stable # essential hypertension -Monitor blood pressure and continue medications # restless leg syndrome -Continue gabapentin (renal dosing) # depression -Continue home medications # history of DVT not on anticoagulation - DVT prophylaxis postoperatively #Dispo -unclear -needs close monitoring in hospital -wound vac through Sunday Subjective: Feeling well. No pain. No issues. Objective: Vital Signs Temp Pulse Resp BP Pulse Ox 36.3 C 60 16 105/55 L 94 09/19/18 08:00 09/19/18 11:08 09/19/18 11:08 09/19/18 11:08 09/19/18 11:08 Laboratory Results 09/18/18 05:18 09/18/18 05:18 09/18/18 09/19/18 09/20/18 05:59 05:59 05:59 Intake Total 890 1780 Output Total 1010 Balance -120 1780 - Physical Exam Constitutional: appears nourished, chronically ill appearing Eyes: PERRL, anicteric sclera Ears, Nose, Mouth, Throat: moist mucous membranes, hearing normal Cardiovascular: No JVD, No edema Respiratory: no respiratory distress, reduced air movement Gastrointestinal: No tenderness, No ascites Skin: warm, No mottled Musculoskeletal: muscular tenderness, abnormal gait, generalized weakness Neurologic: AAOx3 Psychiatric: not anxious, not encephalopathic, thought process linear ICD10 Worksheet Patient Problems: Problems Problem Status Onset Intracerebral hematoma Acute Fall Acute Abdominal wall hematoma Acute CKD (chronic kidney disease) Acute Dehydration Acute Anemia Acute Cellulitis of left leg Acute Hypoxemia Acute Fever Acute Cellulitis of right leg Acute Skin tear of right upper extremity Acute Minor head injury Acute
[2018-09-19] MEDS: GABAPENTIN 100 MG CAP PO SCH (20:20)
[2018-09-20] MEDS: BUMETANIDE 1 MG TAB PO SCH ×3 (00:04→21:37)
[2018-09-20] MEDS: ACETAMINOPHEN 325 MG TAB PO SCH ×4 (00:12→17:37)
[2018-09-20] MEDS: CARBOXYMETHYLCELLULOSE 1% 0.4 ML DROPERETTE EACHEYE SCH ×4 (06:33→20:30)
[2018-09-20] MEDS: CARVEDILOL 6.25 MG TAB PO SCH ×2 (09:58→17:35)
[2018-09-20] MEDS: PRESERVISION AREDS2 FORMULA EYE VIT 1 EACH PO SCH (09:58)
[2018-09-20] MEDS: TACROLIMUS 1 MG CAP PO SCH ×2 (10:02→20:29)
[2018-09-20] MEDS: predniSONE 5 MG TAB PO SCH (10:02)
[2018-09-20] MEDS: azaTHIOprine 50 MG TAB PO SCH (10:02)
[2018-09-20] MEDS: SERTRALINE HCL 50 MG TAB PO SCH (10:03)
[2018-09-20] MEDS: CHOLECALCIFEROL VIT D3 2,000 UNITS TAB/CAP PO SCH (10:03)
[2018-09-20] MEDS: DORZOLAMIDE/TIMOLOL 10 ML OPHT.BTL EACHEYE SCH ×2 (10:04→20:30)
[2018-09-20] MEDS: cycloSPORINE 0.05% 30 DROPERETTE/BOX EACHEYE SCH ×2 (10:04→20:30)
[2018-09-20] MEDS: POLYETHYLENE GLYCOL 3350 17 GM PKT PO SCH (10:04)
--- NOTE | 2018-09-20 12:21 | HOSPPROG ---
Hospitalist Progress Note Assessment/Plan: This is a 72-year-old female who has undergone right lower extremity skin graft. # CKD status post transplant on chronic immunosuppressive therapy -Monitor renal function -Cr 1.6, stable -labs in am # immune suppression due to above with history of MRSA and ESBL E coli bacteremia -Monitor for signs symptoms of infection -doing well # Obstructive sleep apnea -Continue CPAP # anemia of chronic disease (chronic) -Stable # essential hypertension -Monitor blood pressure and continue medications # restless leg syndrome -Continue gabapentin (renal dosing) # depression -Continue home medications # history of DVT not on anticoagulation - DVT prophylaxis -heparin sq #Dispo -unclear -needs close monitoring in hospital -wound vac through Sunday Subjective: Feeling well today. No specific complaints. Objective: Vital Signs Temp Pulse Resp BP Pulse Ox 36.3 C 68 16 127/62 H 96 09/20/18 11:13 09/20/18 11:13 09/20/18 11:13 09/20/18 11:13 09/20/18 11:13 Laboratory Results 09/18/18 05:18 09/18/18 05:18 09/19/18 09/20/18 09/21/18 05:59 05:59 05:59 Intake Total 1780 250 Output Total 400 Balance 1780 -150 - Physical Exam Constitutional: appears nourished, chronically ill appearing Eyes: PERRL, anicteric sclera Ears, Nose, Mouth, Throat: moist mucous membranes, hearing normal Cardiovascular: No JVD, No edema Respiratory: no respiratory distress, reduced air movement Gastrointestinal: No tenderness, No ascites Skin: warm, No erythema Musculoskeletal: muscular tenderness, abnormal gait, generalized weakness Neurologic: AAOx3 Psychiatric: interacting appropriately, not anxious, not encephalopathic ICD10 Worksheet Patient Problems: Problems Problem Status Onset Intracerebral hematoma Acute Fall Acute Abdominal wall hematoma Acute CKD (chronic kidney disease) Acute Dehydration Acute Anemia Acute Cellulitis of left leg Acute Hypoxemia Acute Fever Acute Cellulitis of right leg Acute Skin tear of right upper extremity Acute Minor head injury Acute
[2018-09-20] MEDS: HEPARIN 5,000 UNIT/0.5 ML INJ SC SCH ×2 (14:51→22:54)
--- NOTE | 2018-09-20 15:26 | ASMTCMCOM ---
CM Note CM Note Notes: CM reviewed pts chart. Pt will d/c to [facility] once wound vac is removed. Pt has 2 more days as of tomorrow. Updates sent to [facility]. CM to follow. Plan: [facility] Date Signed: 09/20/2018 03:25 PM Electronically Signed By:SAULO Wang
[2018-09-20] MEDS: HYDROCODONE/APAP 5/325 TAB PO PRN (17:34)
--- NOTE | 2018-09-20 17:51 | SOAPPROG ---
SOAP Progress Note Assessment/Plan: Assessment/Plan: POD # 2 s/p stsg to traumatic wound RLE Donor site: Change mepilex transfer and ABD and tegaderm prn Graft site: Vac in place until Sunday and then can discharge Appreciate hospitalists Seen c Dr Mejia S: Doing well, no complaints Donor site dressing is dry Wound vac to suction. Inferior drape changed d/t drainage Objective: Vital Signs Temp Pulse Resp BP Pulse Ox 36.8 C 61 16 146/74 H 95 09/20/18 16:00 09/20/18 17:35 09/20/18 16:00 09/20/18 17:35 09/20/18 16:00 Laboratory Results 09/18/18 05:18 09/18/18 05:18 09/19/18 09/20/18 09/21/18 05:59 05:59 05:59 Intake Total 1780 250 Output Total 400 Balance 1780 -150 ICD10 Worksheet Patient Problems: Problems Problem Status Onset Abdominal wall hematoma Acute Anemia Acute CKD (chronic kidney disease) Acute Cellulitis of left leg Acute Cellulitis of right leg Acute Dehydration Acute Fall Acute Fever Acute Hypoxemia Acute Intracerebral hematoma Acute Minor head injury Acute Skin tear of right upper extremity Acute
[2018-09-20] MEDS: GABAPENTIN 100 MG CAP PO SCH (20:29)
[2018-09-21] MEDS: ACETAMINOPHEN 325 MG TAB PO SCH ×4 (00:53→18:00)
[2018-09-21] MEDS: CARBOXYMETHYLCELLULOSE 1% 0.4 ML DROPERETTE EACHEYE SCH ×4 (05:54→20:20)
[2018-09-21] MEDS: HEPARIN 5,000 UNIT/0.5 ML INJ SC SCH ×3 (05:54→20:21)
[2018-09-21] MEDS: POLYETHYLENE GLYCOL 3350 17 GM PKT PO SCH (09:00)
[2018-09-21] MEDS: SERTRALINE HCL 50 MG TAB PO SCH (09:00)
[2018-09-21] MEDS: BUMETANIDE 1 MG TAB PO SCH ×2 (09:01→20:17)
[2018-09-21] MEDS: PRESERVISION AREDS2 FORMULA EYE VIT 1 EACH PO SCH (09:01)
[2018-09-21] MEDS: CHOLECALCIFEROL VIT D3 2,000 UNITS TAB/CAP PO SCH (09:01)
[2018-09-21] MEDS: CARVEDILOL 6.25 MG TAB PO SCH ×2 (09:01→18:00)
[2018-09-21] MEDS: predniSONE 5 MG TAB PO SCH (09:02)
[2018-09-21] MEDS: azaTHIOprine 50 MG TAB PO SCH (09:02)
[2018-09-21] MEDS: CALCITRIOL 0.25 MCG CAP PO SCH (09:02)
[2018-09-21] MEDS: TACROLIMUS 1 MG CAP PO SCH ×2 (09:02→20:17)
[2018-09-21] MEDS: cycloSPORINE 0.05% 30 DROPERETTE/BOX EACHEYE SCH ×2 (09:03→20:19)
[2018-09-21] MEDS: DORZOLAMIDE/TIMOLOL 10 ML OPHT.BTL EACHEYE SCH ×2 (09:03→20:20)
--- NOTE | 2018-09-21 11:34 | SOAPPROG ---
SOAP Progress Note Assessment/Plan: Assessment: 72yo F s/p STSG to RLE - VSS, HDs - leg looks good, VAC holding suction. Leave until Sunday - ambulate - IM assisting with management of medical issues, assistance appreciated. Plan: 09/21/18 11:33 Subjective: no complaints Objective: Vital Signs Temp Pulse Resp BP Pulse Ox 36.6 C 66 18 113/56 L 96 09/21/18 11:18 09/21/18 11:18 09/21/18 11:18 09/21/18 11:18 09/21/18 11:18 Laboratory Results 09/18/18 05:18 09/21/18 04:50 09/20/18 09/21/18 09/22/18 05:59 05:59 05:59 Intake Total 250 450 Output Total 400 350 Balance -150 100 ICD10 Worksheet Patient Problems: Problems Problem Status Onset Abdominal wall hematoma Acute Anemia Acute CKD (chronic kidney disease) Acute Cellulitis of left leg Acute Cellulitis of right leg Acute Dehydration Acute Fall Acute Fever Acute Hypoxemia Acute Intracerebral hematoma Acute Minor head injury Acute Skin tear of right upper extremity Acute
--- NOTE | 2018-09-21 15:04 | HOSPPROG ---
Hospitalist Progress Note Assessment/Plan: This is a 72-year-old female with MMI including s/p renal transplant on chronic immune suppression pw traumatic leg wound requiring skin graft # lower extremity wound: traumatic injury now s/p split thickness skin graft with wound vac in place, surgery notes wound appears to be healing and no concerns with graft, will need to monitor through Sunday # CKD: s/p renal transplant on chronic immune suppression, creatinine generally in the mid 1's and currently stable, continue immune suppressants-tacrolimus, prednisone and azathioprine # immune suppression due to above with history of MRSA and ESBL E coli bacteremia # Obstructive sleep apnea: cpap # anemia of chronic disease (chronic) # essential hypertension: continue carvedilol and lasix # restless leg syndrome-Continue gabapentin (renal dosing) # depression-Continue home medications # history of DVT not on chronic anticoagulation anylonger #Dispo--TBD, will need wound vac in house through Sunday ppx HSC IP status Patient new to my care. Old records reviewed and summarized as above. Subjective: no significant overnight events, patient states she is doing well, she is able to ambulate and overall feels well Objective: Vital Signs Temp Pulse Resp BP Pulse Ox 36.6 C 66 18 113/56 L 96 09/21/18 11:18 09/21/18 11:18 09/21/18 11:18 09/21/18 11:18 09/21/18 11:18 Laboratory Results 09/18/18 05:18 09/21/18 04:50 09/20/18 09/21/18 09/22/18 05:59 05:59 05:59 Intake Total 250 450 Output Total 400 350 100 Balance -150 100 -100 awake alert chronically ill appearing anicteric op clear rrr no mrg cta b soft nt nd lle wound vac in place oriented ICD10 Worksheet Patient Problems: Problems Problem Status Onset Intracerebral hematoma Acute Fall Acute Abdominal wall hematoma Acute CKD (chronic kidney disease) Acute Dehydration Acute Anemia Acute Cellulitis of left leg Acute Hypoxemia Acute Fever Acute Cellulitis of right leg Acute Skin tear of right upper extremity Acute Minor head injury Acute
[2018-09-21] MEDS: GABAPENTIN 100 MG CAP PO SCH (20:17)
[2018-09-21] MEDS ORDERED: GABAPENTIN 100 MG CAP PO ONE (22:45)
[2018-09-22] MEDS: ACETAMINOPHEN 325 MG TAB PO SCH ×5 (05:43→18:13)
[2018-09-22] MEDS: CARBOXYMETHYLCELLULOSE 1% 0.4 ML DROPERETTE EACHEYE SCH ×3 (05:44→20:13)
[2018-09-22] MEDS: HEPARIN 5,000 UNIT/0.5 ML INJ SC SCH ×3 (05:45→20:14)
[2018-09-22] MEDS: TACROLIMUS 1 MG CAP PO SCH ×2 (08:55→20:11)
[2018-09-22] MEDS: SERTRALINE HCL 50 MG TAB PO SCH (08:56)
[2018-09-22] MEDS: PRESERVISION AREDS2 FORMULA EYE VIT 1 EACH PO SCH (08:56)
[2018-09-22] MEDS: predniSONE 5 MG TAB PO SCH (08:56)
[2018-09-22] MEDS: azaTHIOprine 50 MG TAB PO SCH (08:56)
[2018-09-22] MEDS: CHOLECALCIFEROL VIT D3 2,000 UNITS TAB/CAP PO SCH (08:57)
[2018-09-22] MEDS: CARVEDILOL 6.25 MG TAB PO SCH ×2 (08:57→18:10)
[2018-09-22] MEDS: BUMETANIDE 1 MG TAB PO SCH ×2 (08:57→20:21)
[2018-09-22] MEDS: POLYETHYLENE GLYCOL 3350 17 GM PKT PO SCH (08:58)
[2018-09-22] MEDS: cycloSPORINE 0.05% 30 DROPERETTE/BOX EACHEYE SCH ×2 (09:01→20:12)
[2018-09-22] MEDS: DORZOLAMIDE/TIMOLOL 10 ML OPHT.BTL EACHEYE SCH ×2 (09:01→20:13)
--- NOTE | 2018-09-22 13:20 | HOSPPROG ---
Hospitalist Progress Note Assessment/Plan: This is a 72-year-old female with MMI including s/p renal transplant on chronic immune suppression pw traumatic leg wound requiring skin graft # lower extremity wound: traumatic injury now s/p split thickness skin graft with wound vac in place, surgery notes wound appears to be healing and no concerns with graft, will need to monitor through Sunday # CKD: s/p renal transplant on chronic immune suppression, creatinine generally in the mid 1's and currently stable, continue immune suppressants-tacrolimus, prednisone and azathioprine # immune suppression due to above with history of MRSA and ESBL E coli bacteremia # diarrhea: new from this am and persistent, very foul smelling, will check c diff # anemia of chronic disease (chronic) # essential hypertension: continue carvedilol and lasix # restless leg syndrome-Continue gabapentin (renal dosing) # depression-Continue home medications # history of DVT not on chronic anticoagulation anylonger #Dispo--TBD, will need wound vac in house through Sunday ppx HSC IP status Subjective: this am patient has developed diarrhea, no other changes overnight Objective: Vital Signs Temp Pulse Resp BP Pulse Ox 36.9 C 63 16 136/61 H 96 09/22/18 08:00 09/22/18 08:00 09/22/18 08:00 09/22/18 08:00 09/22/18 08:00 Laboratory Results 09/18/18 05:18 09/21/18 04:50 09/21/18 09/22/18 09/23/18 05:59 05:59 05:59 Intake Total 450 350 Output Total 350 250 Balance 100 100 awake alert chronically ill appearing anicteric op clear rrr no mrg cta b soft nt nd lle wound vac in place oriented ICD10 Worksheet Patient Problems: Problems Problem Status Onset Abdominal wall hematoma Acute Anemia Acute CKD (chronic kidney disease) Acute Cellulitis of left leg Acute Cellulitis of right leg Acute Dehydration Acute Fall Acute Fever Acute Hypoxemia Acute Intracerebral hematoma Acute Minor head injury Acute Skin tear of right upper extremity Acute
[2018-09-22] MEDS: GABAPENTIN 100 MG CAP PO SCH (20:11)
[2018-09-23] MEDS: ACETAMINOPHEN 325 MG TAB PO SCH ×2 (00:52→05:22)
[2018-09-23] MEDS: CARBOXYMETHYLCELLULOSE 1% 0.4 ML DROPERETTE EACHEYE SCH (05:23)
[2018-09-23] MEDS: HEPARIN 5,000 UNIT/0.5 ML INJ SC SCH (05:24)
[2018-09-23 08:22] VITALS: BP 139/62
[2018-09-23] MEDS: HYDROCODONE/APAP 5/325 TAB PO PRN (08:23)
[2018-09-23] MEDS: CHOLECALCIFEROL VIT D3 2,000 UNITS TAB/CAP PO SCH (08:25)
[2018-09-23] MEDS: CARVEDILOL 6.25 MG TAB PO SCH (08:25)
[2018-09-23] MEDS: PRESERVISION AREDS2 FORMULA EYE VIT 1 EACH PO SCH (08:25)
[2018-09-23] MEDS: predniSONE 5 MG TAB PO SCH (08:26)
[2018-09-23] MEDS: BUMETANIDE 1 MG TAB PO SCH (08:26)
[2018-09-23] MEDS: TACROLIMUS 1 MG CAP PO SCH (08:26)
[2018-09-23] MEDS: CALCITRIOL 0.25 MCG CAP PO SCH (08:26)
[2018-09-23] MEDS: SERTRALINE HCL 50 MG TAB PO SCH (08:27)
[2018-09-23] MEDS: azaTHIOprine 50 MG TAB PO SCH (08:27)
[2018-09-23] MEDS: POLYETHYLENE GLYCOL 3350 17 GM PKT PO SCH (08:27)
[2018-09-23] MEDS: DORZOLAMIDE/TIMOLOL 10 ML OPHT.BTL EACHEYE SCH (08:28)
[2018-09-23] MEDS: cycloSPORINE 0.05% 30 DROPERETTE/BOX EACHEYE SCH (08:30)
--- NOTE | 2018-09-23 08:48 | PDIAF ---
- Diagnosis Diagnosis: RLE traumatic wound Code Status: Full Code - Medication Management Discharge Medications: electronically signed and located in the Home Medication List. - Orders Services needed: Home Care, Registered Nurse, Certified Apparel Patternmaker, Physical Therapy, Occupational Therapy Home Care Face to Face: I certify that this patient was under my care and that I had the required pldv-my-epth encounter meeting the encounter requirements on the discharge day. My findings support the fact that the patient is homebound as defined in Home Care Face to Face Continued: CMS Chapter 7 Medicare Benefits Manual 30.1.1 , The condition of the patient is such that there exists a normal inability to leave home and consequently, leaving home would require a considerable and taxing effort. Isolation Type: Chemotherapy Isolation, Contact Isolation Diet Recommendation: no restrictions on diet Diet Texture: Regular Texture Diet Wound Care Instructions: Wound care: 1. Thigh donor site: mepilex transfer, ABDs, tegaderm. Change q2-3 days or sooner if saturated. 2. RLE graft site: Adaptic touch, fluffed 4x4s, kerlix gauze wrap. Change q1-2 days or sooner if saturated Additional Instructions: Wound care: 1. Thigh donor site: mepilex transfer, ABDs, tegaderm. Change q2-3 days or sooner if saturated 2. RLE graft site: Adaptic touch, fluffed 4x4s, kerlix gauze wrap. Change q1-2 days or sooner if saturated Keep LE elevated Do not get wounds wet in the shower (recommend sponge bath only) FU with Dr. Mejia in 1 week for staple removal and wound check. Call with any worsening symptoms, questions or concerns - Follow Up Care Current Providers and Referrals: Noelle Reid MD [Primary Care Provider] - Meaghan Mejia MD [Medical Doctor] - 09/30/18
--- NOTE | 2018-09-23 09:02 | HOSPPROG ---
Hospitalist Progress Note Assessment/Plan: This is a 72-year-old female with MMI including s/p renal transplant on chronic immune suppression pw traumatic leg wound requiring skin graft # lower extremity wound: -traumatic injury now s/p split thickness skin graft -wound vac DC'd -D/W surgery at bedside, wound appears to be healing and no concerns with graft # CKD: -s/p renal transplant on chronic immune suppression, -creatinine generally in the mid 1's and currently stable, -continue immune suppressants-tacrolimus,prednisone and azathioprine # immune suppression due to above with history of MRSA and ESBL E coli bacteremia # diarrhea: -new -c diff negative # anemia of chronic disease (chronic) # essential hypertension: -continue carvedilol and lasix # restless leg syndrome: -Continue gabapentin (renal dosing) # depression: -Continue home medications # history of DVT not on chronic anticoagulation #Dispo-today to SNF Subjective: Feeling well. No pain. No current issues. Objective: Vital Signs Temp Pulse Resp BP Pulse Ox 36.4 C 66 16 139/62 H 94 09/23/18 08:00 09/23/18 08:00 09/23/18 08:00 09/23/18 08:00 09/23/18 08:00 Laboratory Results 09/18/18 05:18 09/21/18 04:50 09/22/18 09/23/18 09/24/18 05:59 05:59 05:59 Intake Total 350 400 Output Total 250 300 Balance 100 100 - Physical Exam Constitutional: appears nourished, chronically ill appearing Eyes: PERRL, anicteric sclera Ears, Nose, Mouth, Throat: moist mucous membranes, hearing normal Cardiovascular: No JVD, No edema Respiratory: no respiratory distress, reduced air movement Gastrointestinal: No tenderness, No ascites Skin: warm, No erythema Musculoskeletal: no joint effusions, generalized weakness Neurologic: AAOx3 Psychiatric: not anxious, not encephalopathic, thought process linear ICD10 Worksheet Patient Problems: Problems Problem Status Onset Abdominal wall hematoma Acute Anemia Acute CKD (chronic kidney disease) Acute Cellulitis of left leg Acute Cellulitis of right leg Acute Dehydration Acute Fall Acute Fever Acute Hypoxemia Acute Intracerebral hematoma Acute Minor head injury Acute Skin tear of right upper extremity Acute
--- NOTE | 2018-09-23 10:39 | SOAPPROG ---
SOAP Progress Note Assessment/Plan: Assessment/Plan: 72yo F s/p stsg to traumatic wound RLE Donor site: Change mepilex transfer and ABD and tegaderm prn Graft site: Vac removed this am, graft intact. Adaptic touch, fluffed 4x4s, and kerlix applied Appreciate hospitalists Dispo: [facility] instructions provided. FU in 1 week for wound check and staple removal. Call with worsening symptoms, questions or concerns S: Doing well, no complaints. Ready for discharge O: Laying in bed, no acute distress, comfortable Resp no increased WOB CV no peripheral edema Donor site dressing intact without staining, dry. Graft site 100% intact. No erythema or evidence of infection. Dressings placed Objective: Vital Signs Temp Pulse Resp BP Pulse Ox 36.4 C 66 16 139/62 H 94 09/23/18 08:00 09/23/18 08:00 09/23/18 08:00 09/23/18 08:00 09/23/18 08:00 Laboratory Results 09/18/18 05:18 09/21/18 04:50 09/22/18 09/23/18 09/24/18 05:59 05:59 05:59 Intake Total 350 400 Output Total 250 300 Balance 100 100 ICD10 Worksheet Patient Problems: Problems Problem Status Onset Abdominal wall hematoma Acute Anemia Acute CKD (chronic kidney disease) Acute Cellulitis of left leg Acute Cellulitis of right leg Acute Dehydration Acute Fall Acute Fever Acute Hypoxemia Acute Intracerebral hematoma Acute Minor head injury Acute Skin tear of right upper extremity Acute
--- NOTE | 2018-09-23 14:21 | ASDISCHSUM ---
Discharge Information Plan Status:SNF Medically Cleared to Leave:09/22/2018 Discharge Date:09/23/2018 11:21 AM CM D/C Disposition: ADT D/C Disposition:Half-Way Facility Projected Discharge Date:09/23/2018 11:00 AM Transportation at D/C: Discharge Delay Reason: Follow-Up Date:09/23/2018 11:00 AM Discharge Slot: Final Diagnosis: Placement Information Referral Type:*Fdc/SNF Referral ID:[id number] Provider Name:[facility] Address 1:[address] Address 2: City:[place] Selection Factors: State:[place] Patient Contact Information Contact Name:EMI Relationship:Son Address:[address] [id number] City:[place] Alternate Phone: State/Zip Code:[place] [address] Email: Financial Information Financial Class:HMO and PPO Plans Primary Plan Desc:[facility] DUFFY Primary Plan Number:[id number] Secondary Plan Desc: Secondary Plan Number: Assessment Information LACE LACE Length of stay for Answers: 4-6 days current admission Acuity / Level of Answers: Yes Care: Did the patient have an inpatient admission? Comorbidities - select Answers: History of falls all that apply Opioid dependence / Chronic pain Other Notes: HTN # of Emergency department Answers: 3-4 visits in the last 6 months Score: 18 Date Signed: 09/23/2018 11:29 AM Electronically Signed By:SAULO Wang [facility] CM Progress Note CM Note CM Note Notes: CM spoke to ANGELO Rizzo regarding d/c POC. Pt is a 72 y/o female admitted for a planned surgery w/ Dr. Mejia. Pt received a skin graph. Pt will have a wound vac on for the next 5 days inpatient. Pt currently getting rehab at [facility]. Pt is a [facility] member. CM spoke w/ Ivory w/ [facility] and confirmed the plan for her to return back to [facility]. Pt lives at [facility]. Updates sent to [facility] and [facility]. CM to follow. Date Signed: 09/18/2018 10:03 AM Electronically Signed By:SAULO Wang [facility] CM Progress Note CM Note CM Note Notes: CM reviewed pts chart. Pt will d/c to [facility] once wound vac is removed. Pt has 2 more days as of tomorrow. Updates sent to [facility]. CM to follow. Plan: [facility] Date Signed: 09/20/2018 03:25 PM Electronically Signed By:SAULO Wang [facility] CM Progress Note CM Note CM Note Notes: CM discussed with ANGELO Salas. Wound vac and assessment tomorrow/Sun. CM to follow. Plan: [facility], TBD. Date Signed: 09/22/2018 03:52 PM Electronically Signed By:Isabell Brunner Case Management Discharge Plan Note Case Management Discharge Discharge Order Complete? Answers: Yes Patient to Obtain Answers: Other Notes: [facility] Medications Transportation Arranged Answers: Other Notes: [facility] w/c transport Transport will Pick (Date 09/23/2018 11:00 AM & Time) EMTALA Complete Answers: No Case Management Transport Answers: No Form Complete Faxed Final Orders Answers: Yes Agency/Facility Transfer Answers: Yes Report Printed & Faxed to Receiving Agency Family Notified Answers: No Discharge Comments Notes: Pts case discussed w/ Alexsandra Tejada NP regarding d/c POC. Pt is being d/c'd today to [facility]. Pts wound vac has been removed. CM spoke to Doreen Noble with [facility]. Doreen arranged transportation w/ [facility] [employer]. ANGELO Lopez called to give report to Adalgisa at [facility] and to [facility]. DC orders sent to both [facility] and [facility]. CM available for changes. Plan: [facility] Date Signed: 09/23/2018 11:39 AM Electronically Signed By:SAULO Wang Intervention Information
--- NOTE | 2018-09-23 14:22 | ASMTCMCOM ---
CM Note CM Note Notes: CM discussed with ANGELO Salas. Wound vac and assessment tomorrow/Sun. CM to follow. Plan: [facility]. Date Signed: 09/22/2018 03:52 PM Electronically Signed By:Isabell Brunner
--- NOTE | 2018-09-23 14:23 | ASMTDCNOTE ---
Case Management Discharge Discharge Order Complete? Answers: Yes Patient to Obtain Answers: Other Notes: [facility] Medications Transportation Arranged Answers: Other Notes: [facility] w/c transport Transport will Pick (Date 09/23/2018 11:00 AM & Time) EMTALA Complete Answers: No Case Management Transport Answers: No Form Complete Faxed Final Orders Answers: Yes Agency/Facility Transfer Answers: Yes Report Printed & Faxed to Receiving Agency Family Notified Answers: No Discharge Comments Notes: Pts case discussed w/ Alexsandra Tejada RECLAMATION FURNACE OPERATOR regarding d/c POC. Pt is being d/c'd today to [facility]. Pts wound vac has been removed. CM spoke to Doreen Noble with [facility]. Doreen arranged transportation w/ [facility]. ANGELO Lopez called to give report to Adalgisa at [facility] and to [facility]. DC orders sent to both [facility] and [facility]. CM available for changes. Plan: [facility] Date Signed: 09/23/2018 11:39 AM Electronically Signed By:SAULO Wang
--- NOTE | 2018-11-01 04:25 | GDS ---
ADMITTING DIAGNOSIS: Right lower extremity traumatic hematoma. SECONDARY DIAGNOSES: 1. Chronic kidney disease, status post kidney transplant on chronic immunosuppression. 2. Secondary hyperparathyroidism. 3. Glaucoma. 4. Skin cancer. 5. Depression. 6. Recurrent urinary tract infections. 7. Obstructive sleep apnea. 8. Insomnia. 9. Restless leg syndrome. 10. Hypertension. 11. Anemia of chronic disease. 12. History of deep venous thrombosis. REASON FOR ADMISSION: A 72-year-old woman who developed a traumatic hematoma of her right lower extr emity. She has completed wound VAC therapy and is now ready for skin graft. She is admitted at this time for surgical intervention, pain control, wound care, and observation. HOSPITAL COURSE: She was taken to the operating room on 09/17/[address] Meaghan Mejia for a split-th ickness skin graft of the right lower extremity traumatic wound. She had a wound VAC placed at the t eben of surgery. At the time of surgery, the wound measured 15 x 13 cm. She was admitted for wound V AC therapy and monitoring for infection given her immunosuppression. Her postoperative course was un complicated. She was followed by the hospitalist for her significant comorbidities. Her pain was we ll controlled with oral pain medication. She was tolerating a regular diet, [facility], and was ready for discharge on postoperative day #6. DISCHARGE CONDITION: She is being discharged to a [facility] facility in stable condition with strict wound care orders. DISCHARGE MEDICATIONS: Resume home medications. Please see EMR for further details. She was sent h ome with a prescription for Her[place]. Please see EMR for more details. DISCHARGE INSTRUCTIONS AND FOLLOWUP: The wound VAC was removed on the day of discharge. Wound care instructions provided in discharge paperwork. Keep lower extremity elevated. Do not get the wound w et in the shower. She will follow up with Dr. Mejia in 1 week for staple removal and wound check. C all with worsening symptoms, questions, or concerns. /[id number]/MODL
== END 2018-09-23 11:21 | DRG 604 ==
LOC: FSGY 13:21 → F3N 16:14 → F3E 17:26
PROVIDERS: ADMIT Surgery; ATTEND Surgery
DX: S91.301A Unspecified open wound, right foot, initial encounter (principal); X58.XXXA Exposure to other specified factors, initial encounter; N18.6 End stage renal disease; Z94.0 Kidney transplant status; E20.9 Hypoparathyroidism, unspecified; G47.33 Obstructive sleep apnea (adult) (pediatric); G25.81 Restless legs syndrome; I10 Essential (primary) hypertension; F32.9 Major depressive disorder, single episode, unspecified; E66.9 Obesity, unspecified; Z68.31 Body mass index [BMI] 31.0-31.9, adult; Z98.84 Bariatric surgery status; Z87.440 Personal history of urinary (tract) infections; Z86.718 Personal history of other venous thrombosis and embolism; Z87.891 Personal history of nicotine dependence; Z96.653 Presence of artificial knee joint, bilateral
CPT/HCPCS: 97110-GP; 97116-GP; 97162-GP; 97166-GO; 97530-GP; 97535-GO; G8978-GP-CK; G8979-GP-CJ; G8987-GO-CK; G8988-GO-CJ; J0171; J0690; J1100; J1644; J2001; J2250; J2405; J2704; J3010; J7500; J7507; J7512